=== PATIENT | female | born 1950 | race Caucasian/White ===

== ENCOUNTER → 2021-03-27 10:26 | Outpatient (CLI) | payer MEDICARE, OTHER, SELFPAY ==
[2021-03-27 12:21] LABS: Absolute Lymphocyte Count 2.37 X10^3/uL (0.83-4.51); Absolute Neutrophil Count 4.9 X10^3/uL (2.0-7.7); Basophil# 0.05 X10^3/uL; Basophil% 0.6 % (0-1); Eosinophil# 0.11 X10^3/uL; Eosinophils% 1.4 % (0-5); Hematocrit 38.3 % (37-47); Hemoglobin 11.7 g/dL (12.0-15.0); Lymphocyte # 2.37 X10^3/ul (0.83-4.51); Lymphocyte % 29.2 % (19-41); Mean Corp Hgb Conc 30.5 g/dL (32-36); Mean Corpuscular Hgb 26.5 pg (27.0-32.0); Mean Corpuscular Volume 86.8 fL (81-99); Mean Platelet Vol. 10.5 fl (6.2-12.0); Monocyte# 0.65 X10^3/uL; NRBC Flagged by Analyzer 0 % (0-5); Neutrophil # 4.92 X10^3/uL (2.7-7.7); Neutrophil % 60.6 % (47-70); Platelet Count 326 K/mm3 (150-450); RBC Distribution Width CV 14.3 % (11.6-14.6); RBC Distribution Width SD 45.3 fl (35.1-43.9); Red Blood Count 4.41 M/mm3 (4.2-5.4); White Blood Count 8.1 K/mm3 (4.4-11.0)
[2021-03-27 12:32] LABS: ALB/GLOB Ratio 0.7 RATIO (0.9-2.4); AST(SGOT) 11 U/L (15-37); Alanine Aminotransfer ALT/SGPT 22 U/L (13-56); Albumin, Serum 3.4 g/dL (3.2-5.0); Alkaline Phosphatase 77 U/L (45-117); Anion Gap 8 (5-15); BUN 9 mg/dL (7-18); Calcium,Total 9.7 mg/dL (8.5-10.1); Chloride 104 mmol/L (98-107); Cholesterol 297 mg/dL (200); Creatinine, Serum 0.69 mg/dL (0.55-1.02); EST Glomerular Filtration Rate 89 mL/min (>60); Est Glom Filt Rate - Afr Amer 107 mL/min (>60); Globulin 4.6 g/dL (2.2-4.2); Glucose 95 mg/dL (74-106); High Density Lipoprotein 83 mg/dL; Potassium 4.5 mmol/L (3.5-5.1); Sodium Level 139 mmol/L (136-145); Triglycerides 201 mg/dL; Very Low Density Lipoprotein 40 mg/dL (5-40)
[2021-03-28 09:36] LABS: Ferritin 9 ng/mL (8-252); Iron 31 ug/dL (50-170); Iron Binding Capacity,Total 430 ug/dL (250-450)
== END ==
PROVIDERS: PCP Internal Medicine; Referring Provider Internal Medicine; Visit Provider Internal Medicine
DX: D50.9 Iron deficiency anemia, unspecified (principal); I10 Essential (primary) hypertension
CPT/HCPCS: 36415; 80053; 80061; 82728; 83540; 83550; 85025

== ENCOUNTER 2021-07-24 09:15 | Outpatient (CLI) | payer MEDICARE, OTHER, SELFPAY ==
[2021-07-24 12:21] LABS: Absolute Lymphocyte Count 2.26 X10^3/uL (0.83-4.51); Absolute Neutrophil Count 4.4 X10^3/uL (2.0-7.7); Basophil# 0.05 X10^3/uL; Basophil% 0.7 % (0-1); Eosinophil# 0.17 X10^3/uL; Eosinophils% 2.3 % (0-5); Hematocrit 40.5 % (37-47); Hemoglobin 12.8 g/dL (12.0-15.0); Lymphocyte # 2.26 X10^3/ul (0.83-4.51); Lymphocyte % 30.3 % (19-41); Mean Corp Hgb Conc 31.6 g/dL (32-36); Mean Corpuscular Volume 91.8 fL (81-99); Mean Platelet Vol. 10.6 fl (6.2-12.0); Monocyte# 0.55 X10^3/uL; Monocyte% 7.4 % (0-10); NRBC Flagged by Analyzer 0 % (0-5); Neutrophil # 4.41 X10^3/uL (2.7-7.7); Platelet Count 238 K/mm3 (150-450); RBC Distribution Width CV 14.9 % (11.6-14.6); RBC Distribution Width SD 50.5 fl (35.1-43.9); Red Blood Count 4.41 M/mm3 (4.2-5.4); White Blood Count 7.5 K/mm3 (4.4-11.0)
[2021-07-24 12:43] LABS: Vitamin D,25 Hydroxy 28.7 ng/mL
[2021-07-24 13:00] LABS: ALB/GLOB Ratio 0.9 RATIO (0.9-2.4); AST(SGOT) 9 U/L (15-37); Alanine Aminotransfer ALT/SGPT 31 U/L (13-56); Albumin, Serum 3.5 g/dL (3.2-5.0); Alkaline Phosphatase 65 U/L (45-117); Anion Gap 3 (5-15); BUN 9 mg/dL (7-18); BUN/Creat Ratio 14.2 RATIO (10-20); Chloride 106 mmol/L (98-107); Cholesterol 257 mg/dL (200); Creatinine, Serum 0.63 mg/dL (0.55-1.02); EST Glomerular Filtration Rate 98 mL/min (>60); Est Glom Filt Rate - Afr Amer 119 mL/min (>60); Globulin 3.9 g/dL (2.2-4.2); Glucose 100 mg/dL (74-106); High Density Lipoprotein 59 mg/dL; Potassium 4.3 mmol/L (3.5-5.1); Protein, Total 7.4 g/dL (6.4-8.2); Sodium Level 139 mmol/L (136-145); Triglycerides 185 mg/dL; Very Low Density Lipoprotein 37 mg/dL (5-40)
== END 2021-07-24 23:59 | disposition home or self-care (01) ==
PROVIDERS: PCP Internal Medicine; Referring Provider Internal Medicine; Visit Provider Internal Medicine
DX: I10 Essential (primary) hypertension (principal); E78.2 Mixed hyperlipidemia; M85.80 Other specified disorders of bone density and structure, unspecified site
CPT/HCPCS: 36415; 80053; 80061; 82306; 85025

== ENCOUNTER 2021-08-01 08:48 | Outpatient (CLI) | payer MEDICARE, OTHER, SELFPAY ==
--- NOTE | 2021-08-01 08:51 | BI_ITS ---
MAMMOGRAPHY - BILATERAL SCREENING REASON FOR EXAM: Female, 71 years old. Routine annual screening examination. PERTINENT HISTORY: Aunt with breast cancer. TECHNIQUE: Digital bilateral breast norma (3D mammographic acquisition) in the CC and MLO projections. 2-D mediolateral oblique (MLO) and craniocaudad (CC) views of both breasts were obtained. CAD: Full Field Digital Mammography with Computer Added Detection was performed. COMPARISON: Comparison is made with prior outside examination dated 06/29/2020. FINDINGS: Breast Composition: The breasts are heterogeneously dense, which may obscure small masses. There are no dominant masses or suspicious calcifications. Stable benign-appearing bilateral axillary lymph nodes. No other significant abnormalities are identified. There has been no significant change since the prior study. BI/SCRN MAMM (CAD)W/NORMA BILAT IMPRESSION: Stable bilateral screening mammogram. Yearly follow-up mammogram recommended. (A) ASSESSMENT CATEGORY: BIRADS Category 2: Benign. A letter regarding these results will be sent to the patient by the facility within 30 days. Approximately 10% of breast cancers are not detected by mammography. A normal mammogram should not delay biopsy of a clinically suspicious abnormality. [id number] Electronically Signed: Mkii Mora MD at 15:26 EDT ,
== END 2021-08-01 23:59 | disposition home or self-care (01) ==
PROVIDERS: PCP Internal Medicine; Visit Provider Internal Medicine
DX: Z12.31 Encounter for screening mammogram for malignant neoplasm of breast (principal)
CPT/HCPCS: 77063; 77067

== ENCOUNTER → 2022-03-22 | Outpatient (CLI) | payer MEDICARE, OTHER, SELFPAY ==
[2022-03-22 12:56] LABS: Erythrocyte Sedimentation Rate 51 mm/hr (0-30)
[2022-03-22 13:04] LABS: CRP < 2.90 mg/L (0.0-3.0); Rheumatoid Factor < 10.0 IU/mL (<15)
[2022-03-24 07:51] LABS: ANTINUCLEAR ANTIBODIES DIRECT Negative (Negative)
== END | disposition home or self-care (01) ==
LOC: BIMLAB 09:28
PROVIDERS: PCP Internal Medicine; Visit Provider Internal Medicine
DX: M19.90 Unspecified osteoarthritis, unspecified site (principal); M79.10 Myalgia, unspecified site; T50.B95A Adverse effect of other viral vaccines, initial encounter
CPT/HCPCS: 36415; 85652; 86038; 86140; 86225; 86235; 86431

== ENCOUNTER → 2022-05-28 | Outpatient (CLI) | payer MEDICARE, OTHER, SELFPAY ==
[2022-05-28 12:31] LABS: Erythrocyte Sedimentation Rate 22 mm/hr (0-30)
[2022-05-28 12:32] LABS: Absolute Lymphocyte Count 2.41 X10^3/uL (0.83-4.51); Absolute Neutrophil Count 5.1 X10^3/uL (2.0-7.7); Basophil# 0.04 X10^3/uL; Basophil% 0.5 % (0-1); Eosinophil# 0.21 X10^3/uL; Eosinophils% 2.5 % (0-5); Hematocrit 42.8 % (37-47); Hemoglobin 13.8 g/dL (12.0-15.0); Lymphocyte # 2.41 X10^3/ul (0.83-4.51); Lymphocyte % 28.9 % (19-41); Mean Corp Hgb Conc 32.2 g/dL (32-36); Mean Corpuscular Hgb 29.5 pg (27.0-32.0); Mean Corpuscular Volume 91.5 fL (81-99); Mean Platelet Vol. 10.3 fl (6.2-12.0); Monocyte# 0.55 X10^3/uL; Monocyte% 6.6 % (0-10); NRBC Flagged by Analyzer 0 % (0-5); Neutrophil # 5.11 X10^3/uL (2.7-7.7); Neutrophil % 61.1 % (47-70); Platelet Count 242 K/mm3 (150-450); RBC Distribution Width CV 12.9 % (11.6-14.6); RBC Distribution Width SD 43.5 fl (35.1-43.9); Red Blood Count 4.68 M/mm3 (4.2-5.4); White Blood Count 8.4 K/mm3 (4.4-11.0)
[2022-05-28 13:07] LABS: ALB/GLOB Ratio 0.9 RATIO (0.9-2.4); AST(SGOT) 8 U/L (15-37); Alanine Aminotransfer ALT/SGPT 28 U/L (13-56); Albumin, Serum 3.7 g/dL (3.2-5.0); Alkaline Phosphatase 69 U/L (45-117); Anion Gap 8 (5-15); BUN 13 mg/dL (7-18); BUN/Creat Ratio 20.9 RATIO (10-20); CRP < 2.90 mg/L (0.0-3.0); Chloride 104 mmol/L (98-107); Creatinine, Serum 0.62 mg/dL (0.55-1.02); EST Glomerular Filtration Rate 100 mL/min (>60); Est Glom Filt Rate - Afr Amer 121 mL/min (>60); Globulin 4.2 g/dL (2.2-4.2); Glucose 96 mg/dL (74-106); Hepatitis B Surface Antibody Non-Reactive; Hepatitis B Surface Antigen Non-Reactive (Nonreactive); Potassium 4.3 mmol/L (3.5-5.1); Protein, Total 7.9 g/dL (6.4-8.2); Rheumatoid Factor < 10.0 IU/mL (<15); Sodium Level 139 mmol/L (136-145)
[2022-05-28 15:45] LABS: Hepatitis C Antibody Non-Reactive (Nonreactive)
[2022-05-29 18:11] LABS: CCP IgG Antibodies 1 units (0-19)
== END | disposition home or self-care (01) ==
LOC: MTLAB 10:03
PROVIDERS: PCP Internal Medicine; Referring Provider Internal Medicine Rheumatology; Visit Provider Internal Medicine Rheumatology
DX: M06.4 Inflammatory polyarthropathy (principal); M79.7 Fibromyalgia; M19.041 Primary osteoarthritis, right hand
CPT/HCPCS: 36415; 80053; 85025; 85652; 86140; 86200; 86431; 86706; 86803; 87340

== ENCOUNTER → 2022-06-26 | Outpatient (CLI) | payer MEDICARE, OTHER, SELFPAY ==
[2022-06-26 13:20] LABS: Vitamin D,25 Hydroxy 22.3 ng/mL
[2022-06-26 13:56] LABS: Cholesterol 252 mg/dL (200); High Density Lipoprotein 62 mg/dL; Triglycerides 177 mg/dL; Very Low Density Lipoprotein 35 mg/dL (5-40)
== END | disposition home or self-care (01) ==
LOC: BIMLAB 11:37
PROVIDERS: PCP Internal Medicine; Referring Provider Internal Medicine; Visit Provider Internal Medicine
DX: I10 Essential (primary) hypertension (principal); M81.0 Age-related osteoporosis without current pathological fracture
CPT/HCPCS: 36415; 80061; 82306

== ENCOUNTER → 2022-08-13 | Outpatient (CLI) | payer MEDICARE, OTHER, SELFPAY ==
--- NOTE | 2022-08-13 14:25 | BI_ITS ---
MAMMOGRAPHY - BILATERAL SCREENING 3-D TOMOSYNTHESIS REASON FOR EXAM: Female, 72 years old. Routine screening PERTINENT HISTORY: No significant family history. TECHNIQUE: 2-D mammograms and 3-D Tomosynthesis of the breast (s) were performed. CAD was performed. COMPARISON: 08/01/2021 FINDINGS: The breast composition is composed of scattered fibroglandular density. Scattered benign calcifications are seen. No dense spiculated masses or suspicious microcalcifications are identified. No architectural distortion is identified. There is no skin thickening or retraction. There has been no significant change since the prior study. BI/SCRN MAMM (CAD)W/NORMA BILAT IMPRESSION: No mammographic signs of malignancy. Routine yearly mammograms recommended. ASSESSMENT CATEGORY: BIRADS Category 1: Negative. A letter regarding these results will be sent to the patient by the facility within 30 days. FOLLOW UP RECOMMENDATION: Yearly follow up mammogram recommended. (A) Approximately 10% of breast cancers are not detected by mammography. A normal mammogram should not delay biopsy of a clinically suspicious abnormality. Electronically Signed: Steven Desai MD at 15:21 EDT ,
--- NOTE | 2022-08-13 14:32 | BD_ITS ---
STUDY: DUAL ENERGY X-RAY ABSORPTIOMETRY / DXA REASON FOR EXAM: Female, 72 years old. Osteoporosis TECHNIQUE: Bone Mineral Density (BMD) measurements of lumbar spine and bilateral hips were obtained. COMPARISON: None. FINDINGS: Lumbar Spine (L1-L4): g/cm2 (1.205) / T-score (1.4) / Z-score (3.8) Findings are suggestive of normal bone density with a low fracture risk. Left Femur Total: g/cm2 (0.804) / T-score (-1.1) / Z-score (0.6) Left Femoral Neck: g/cm2 (0.592) / T-score (-2.3) / Z-score (-0.3) Right Femur Total: g/cm2 (0.785) / T-score (-1.3) / Z-score (0.4) Right Femoral Neck: g/cm2 (0.574) / T-score (-2.5) / Z-score (-0.5) BD/Dexa Bone Density Study IMPRESSION: The patient is considered osteopenic as outlined below according to World Magdy Organization (WHO) criteria with a high fracture risk. Reference Information: The T-score is the number of standard deviations above or below the standard which is normal for young adults at their peak bone mineral density. The World Health Organization (WHO) interprets the T-scores as follows: Above -1 Normal bone density Between -1 and -2.5 Osteopenia Equal to / or below -2.5 Osteoporosis As a practical clinical guideline, osteopenia may be graded as follows: Mild -1 through -1.5 Moderate -1.6 through -2.0 Severe -2.1 through -2.4 The Z-score is the number of standard deviations above or below age-matched controls. A Z-score of less than -1.5 would be considered abnormal. References: 1. NIH Osteoporosis and Related Bone Diseases www osteo.org 2. International Society for Clinical Densitometry www iscd.org 3. National Osteoporosis Foundation www nof.org Electronically Signed: Miki Mora MD at 8:52 EDT ,
== END | disposition home or self-care (01) ==
LOC: OPBD 14:23
PROVIDERS: PCP Internal Medicine; Visit Provider Internal Medicine
DX: Z12.31 Encounter for screening mammogram for malignant neoplasm of breast (principal); M81.0 Age-related osteoporosis without current pathological fracture
CPT/HCPCS: 77063; 77067; 77080

== ENCOUNTER → 2022-08-15 | Outpatient (CLI) | payer MEDICARE, OTHER, SELFPAY ==
[2022-08-15 17:48] LABS: Absolute Neutrophil Count 4.6 X10^3/uL (2.0-7.7); Basophil# 0.05 X10^3/uL; Basophil% 0.6 % (0-1); Eosinophil# 0.17 X10^3/uL; Eosinophils% 2.1 % (0-5); Hematocrit 40.7 % (37-47); Mean Corp Hgb Conc 31.9 g/dL (32-36); Mean Corpuscular Hgb 30.3 pg (27.0-32.0); Mean Corpuscular Volume 94.9 fL (81-99); Monocyte# 0.67 X10^3/uL; Monocyte% 8.2 % (0-10); NRBC Flagged by Analyzer 0 % (0-5); Neutrophil # 4.62 X10^3/uL (2.7-7.7); Neutrophil % 56.9 % (47-70); Platelet Count 290 K/mm3 (150-450); RBC Distribution Width CV 14.5 % (11.6-14.6); RBC Distribution Width SD 49.4 fl (35.1-43.9); Red Blood Count 4.29 M/mm3 (4.2-5.4); White Blood Count 8.1 K/mm3 (4.4-11.0)
[2022-08-15 18:14] LABS: ALB/GLOB Ratio 0.9 RATIO (0.9-2.4); AST(SGOT) 6 U/L (15-37); Alanine Aminotransfer ALT/SGPT 29 U/L (13-56); Albumin, Serum 3.5 g/dL (3.2-5.0); Alkaline Phosphatase 63 U/L (45-117); Anion Gap 4 (5-15); BUN 13 mg/dL (7-18); BUN/Creat Ratio 17.1 RATIO (10-20); Calcium,Total 9.2 mg/dL (8.5-10.1); Chloride 107 mmol/L (98-107); Creatinine, Serum 0.76 mg/dL (0.55-1.02); EST Glomerular Filtration Rate 79 mL/min (>60); Est Glom Filt Rate - Afr Amer 96 mL/min (>60); Globulin 3.9 g/dL (2.2-4.2); Glucose 97 mg/dL (74-106); Potassium 4.2 mmol/L (3.5-5.1); Protein, Total 7.4 g/dL (6.4-8.2); Sodium Level 136 mmol/L (136-145)
== END | disposition home or self-care (01) ==
PROVIDERS: PCP Internal Medicine; Referring Provider Internal Medicine Rheumatology; Visit Provider Internal Medicine Rheumatology
DX: M06.4 Inflammatory polyarthropathy (principal); Z79.899 Other long term (current) drug therapy; M79.7 Fibromyalgia
CPT/HCPCS: 36415; 80053; 85025

== ENCOUNTER → 2022-10-15 | Outpatient (CLI) | payer MEDICARE, OTHER, SELFPAY ==
[2022-10-15 15:45] LABS: Absolute Lymphocyte Count 2.76 X10^3/uL (0.83-4.51); Basophil# 0.05 X10^3/uL; Basophil% 0.5 % (0-1); Eosinophil# 0.18 X10^3/uL; Eosinophils% 1.9 % (0-5); Hemoglobin 12.5 g/dL (12.0-15.0); Lymphocyte # 2.76 X10^3/ul (0.83-4.51); Lymphocyte % 28.9 % (19-41); Mean Corp Hgb Conc 31.3 g/dL (32-36); Mean Corpuscular Hgb 29.5 pg (27.0-32.0); Mean Corpuscular Volume 94.3 fL (81-99); Mean Platelet Vol. 10.3 fl (6.2-12.0); Monocyte# 0.53 X10^3/uL; Monocyte% 5.6 % (0-10); NRBC Flagged by Analyzer 0 % (0-5); Neutrophil # 5.99 X10^3/uL (2.7-7.7); Neutrophil % 62.8 % (47-70); Platelet Count 306 K/mm3 (150-450); RBC Distribution Width CV 13.6 % (11.6-14.6); RBC Distribution Width SD 46.2 fl (35.1-43.9); Red Blood Count 4.24 M/mm3 (4.2-5.4); White Blood Count 9.5 K/mm3 (4.4-11.0)
[2022-10-15 16:00] LABS: ALB/GLOB Ratio 0.8 RATIO (0.9-2.4); AST(SGOT) 9 U/L (15-37); Alanine Aminotransfer ALT/SGPT 24 U/L (13-56); Albumin, Serum 3.4 g/dL (3.2-5.0); Alkaline Phosphatase 80 U/L (45-117); Anion Gap 7 (5-15); BUN 11 mg/dL (7-18); BUN/Creat Ratio 15.6 RATIO (10-20); Calcium,Total 9.5 mg/dL (8.5-10.1); Chloride 108 mmol/L (98-107); EST Glomerular Filtration Rate 87 mL/min (>60); Est Glom Filt Rate - Afr Amer 105 mL/min (>60); Globulin 4.1 g/dL (2.2-4.2); Glucose 107 mg/dL (74-106); Potassium 4.2 mmol/L (3.5-5.1); Protein, Total 7.5 g/dL (6.4-8.2); Sodium Level 141 mmol/L (136-145)
== END | disposition home or self-care (01) ==
LOC: MTLAB 13:52
PROVIDERS: PCP Internal Medicine; Referring Provider Internal Medicine Rheumatology; Visit Provider Internal Medicine Rheumatology
DX: M06.4 Inflammatory polyarthropathy (principal); Z79.899 Other long term (current) drug therapy; M79.7 Fibromyalgia
CPT/HCPCS: 36415; 80053; 85025

== ENCOUNTER → 2022-12-17 | Outpatient (CLI) | payer MEDICARE, OTHER, SELFPAY ==
[2022-12-17 12:24] LABS: Absolute Lymphocyte Count 2.69 X10^3/uL (0.83-4.51); Absolute Neutrophil Count 5.3 X10^3/uL (2.0-7.7); Basophil# 0.05 X10^3/uL; Basophil% 0.6 % (0-1); Eosinophil# 0.12 X10^3/uL; Eosinophils% 1.4 % (0-5); Hematocrit 37.9 % (37-47); Hemoglobin 11.5 g/dL (12.0-15.0); Lymphocyte # 2.69 X10^3/ul (0.83-4.51); Lymphocyte % 30.8 % (19-41); Mean Corp Hgb Conc 30.3 g/dL (32-36); Mean Corpuscular Hgb 28.2 pg (27.0-32.0); Mean Corpuscular Volume 92.9 fL (81-99); Mean Platelet Vol. 10.4 fl (6.2-12.0); Monocyte# 0.54 X10^3/uL; Monocyte% 6.2 % (0-10); NRBC Flagged by Analyzer 0 % (0-5); Neutrophil % 60.7 % (47-70); Platelet Count 296 K/mm3 (150-450); RBC Distribution Width CV 15.2 % (11.6-14.6); RBC Distribution Width SD 51.5 fl (35.1-43.9); Red Blood Count 4.08 M/mm3 (4.2-5.4); White Blood Count 8.7 K/mm3 (4.4-11.0)
[2022-12-17 12:50] LABS: ALB/GLOB Ratio 0.8 RATIO (0.9-2.4); AST(SGOT) 7 U/L (15-37); Alanine Aminotransfer ALT/SGPT 22 U/L (13-56); Albumin, Serum 3.4 g/dL (3.2-5.0); Alkaline Phosphatase 71 U/L (45-117); Anion Gap 5 (5-15); BUN 11 mg/dL (7-18); BUN/Creat Ratio 19.4 RATIO (10-20); Calcium,Total 9.9 mg/dL (8.5-10.1); Chloride 105 mmol/L (98-107); Creatinine, Serum 0.57 mg/dL (0.55-1.02); EST Glomerular Filtration Rate 111 mL/min (>60); Est Glom Filt Rate - Afr Amer 134 mL/min (>60); Globulin 4.1 g/dL (2.2-4.2); Glucose 93 mg/dL (74-106); Potassium 4.3 mmol/L (3.5-5.1); Protein, Total 7.5 g/dL (6.4-8.2); Sodium Level 138 mmol/L (136-145)
== END | disposition home or self-care (01) ==
LOC: MTLAB 10:33
PROVIDERS: PCP Internal Medicine; Referring Provider Internal Medicine Rheumatology; Visit Provider Internal Medicine Rheumatology
DX: M06.4 Inflammatory polyarthropathy (principal); Z79.899 Other long term (current) drug therapy; M79.7 Fibromyalgia; M19.041 Primary osteoarthritis, right hand
CPT/HCPCS: 36415; 80053; 85025

== ENCOUNTER → 2023-01-01 | Outpatient (CLI) | payer MEDICARE, OTHER, SELFPAY ==
[2023-01-01 11:22] LABS: Mucous, Urine 0 SEEN /hpf (<or=2+); Red Blood Cells-Urine 0 SEEN /hpf (0-5)
[2023-01-01 12:45] LABS: Color, Urine Yellow (Yellow); Glucose, Dipstick Normal (Normal); Ketone-Dipstick Negative (Negative); Leukocyte Esterase-Dipstick 500 /ul (Negative); Nitrite-Dipstick Negative (Negative); Occult Blood-Urine Negative /ul (Negative); Protein-Dipstick Negative (Negative); Specific Gravity, Urine 1.015 (1.002-1.030); Urine Bilirubin Dipstick Negative (Negative); Urine Clarity Sl. Cloudy (Clear); Urine Urobilinogen Normal (Normal)
[2023-01-01 12:48] LABS: Vitamin D,25 Hydroxy 28.2 ng/mL
[2023-01-01 12:58] LABS: Ferritin 14 ng/mL (8-252); Iron 28 ug/dL (50-170); Iron Binding Capacity,Total 340 ug/dL (250-450)
[2023-01-01 13:02] LABS: Squamous Epithelial Cells - UA 5-10 SEEN /hpf (5-10)
[2023-01-01 13:03] LABS: Bacteria 1+ /hpf (None Seen); Transitional Epithelial - Ur 0-5 SEEN /hpf (0-5); White Blood Cells 10-25 SEEN /hpf (0-5)
== END | disposition home or self-care (01) ==
LOC: BIMLAB 11:20
PROVIDERS: PCP Internal Medicine; Visit Provider Internal Medicine
DX: R82.90 Unspecified abnormal findings in urine (principal); D64.9 Anemia, unspecified; M81.0 Age-related osteoporosis without current pathological fracture; N89.8 Other specified noninflammatory disorders of vagina
CPT/HCPCS: 36415; 81001; 82306; 82728; 83540; 83550; 87086; 87088

== ENCOUNTER → 2023-01-04 | Outpatient (CLI) | payer MEDICARE, OTHER, SELFPAY | END | disposition home or self-care (01) | LOC: LAB 09:04 | PROVIDERS: PCP Internal Medicine; Referring Provider Internal Medicine; Visit Provider Internal Medicine | DX: N39.0 Urinary tract infection, site not specified (principal) | CPT/HCPCS: 87086; 87088 ==

== ENCOUNTER → 2023-03-05 | Outpatient (CLI) | payer MEDICARE, OTHER, SELFPAY | END | disposition home or self-care (01) | LOC: LABSPEC 14:51 | PROVIDERS: PCP Internal Medicine; Referring Provider Obstetrics & Gynecology; Visit Provider Obstetrics & Gynecology | DX: N89.8 Other specified noninflammatory disorders of vagina (principal) | CPT/HCPCS: 87070; 87077; 87205 ==

== ENCOUNTER → 2023-07-07 | Outpatient (CLI) | payer MEDICARE, SELFPAY ==
[2023-07-07 13:02] LABS: Anion Gap 4 (5-15); BUN 15 mg/dL (7-18); BUN/Creat Ratio 20.4 RATIO (10-20); Calcium,Total 9.9 mg/dL (8.5-10.1); Chloride 106 mmol/L (98-107); Cholesterol 288 mg/dL (200); Creatinine, Serum 0.74 mg/dL (0.55-1.02); EST Glomerular Filtration Rate 82 mL/min (>60); Est Glom Filt Rate - Afr Amer 99 mL/min (>60); Glucose 102 mg/dL (74-106); High Density Lipoprotein 56 mg/dL; Potassium 4.3 mmol/L (3.5-5.1); Sodium Level 138 mmol/L (136-145); Triglycerides 228 mg/dL; Very Low Density Lipoprotein 46 mg/dL (5-40)
[2023-07-07 13:07] LABS: Vitamin D,25 Hydroxy 27.3 ng/mL
== END | disposition home or self-care (01) ==
LOC: BIMLAB 09:01
PROVIDERS: PCP Internal Medicine; Visit Provider Internal Medicine
DX: M81.0 Age-related osteoporosis without current pathological fracture (principal); I10 Essential (primary) hypertension
CPT/HCPCS: 36415; 80048; 80061; 82306

== ENCOUNTER → 2023-08-15 | Outpatient (CLI) | payer MEDICARE, SELFPAY ==
--- NOTE | 2023-08-15 08:06 | BI_ITS ---
MAMMOGRAPHY - BILATERAL SCREENING REASON FOR EXAM: Female, 73 years old. Routine annual screening examination. PERTINENT HISTORY: Aunt with breast cancer. TECHNIQUE: Digital bilateral breast norma (3D mammographic acquisition) in the CC and MLO projections. 2-D mediolateral oblique (MLO) and craniocaudad (CC) views of both breasts were obtained. CAD: Full Field Digital Mammography with Computer Added Detection was performed. COMPARISON: Comparison is made with prior study dated August 13, 2022 and August 01, 2021. FINDINGS: Breast Composition: There are scattered areas of fibroglandular density. There are no dominant masses or suspicious calcifications. Stable small bilateral axillary lymph nodes. No other significant abnormalities are identified. There has been no significant change since the prior study. BI/SCRN MAMM (CAD)W/NORMA BILAT IMPRESSION: Stable bilateral screening mammogram. Yearly follow-up mammogram recommended. (A) ASSESSMENT CATEGORY: BIRADS Category 2: Benign. A letter regarding these results will be sent to the patient by the facility within 30 days. Approximately 10% of breast cancers are not detected by mammography. A normal mammogram should not delay biopsy of a clinically suspicious abnormality. [id number] Electronically Signed: Miki Mora MD at 8:37 EDT ,
== END | disposition home or self-care (01) ==
PROVIDERS: PCP Internal Medicine; Referring Provider Internal Medicine; Visit Provider Internal Medicine
DX: Z12.31 Encounter for screening mammogram for malignant neoplasm of breast (principal)
CPT/HCPCS: 77063; 77067

== ENCOUNTER → 2024-01-07 | Outpatient (CLI) | payer MEDICARE, SELFPAY ==
[2024-01-07 12:14] LABS: Absolute Lymphocyte Count 2.31 X10^3/uL (0.83-4.51); Basophil# 0.05 X10^3/uL; Basophil% 0.6 % (0-1); Eosinophil# 0.21 X10^3/uL; Eosinophils% 2.6 % (0-5); Hematocrit 41.4 % (37-47); Lymphocyte # 2.31 X10^3/ul (0.83-4.51); Lymphocyte % 28.2 % (19-41); Mean Corp Hgb Conc 31.4 g/dL (32-36); Mean Corpuscular Volume 92.2 fL (81-99); Mean Platelet Vol. 10.3 fl (6.2-12.0); Monocyte# 0.63 X10^3/uL; Monocyte% 7.7 % (0-10); NRBC Flagged by Analyzer 0 % (0-5); Neutrophil # 4.95 X10^3/uL (2.7-7.7); Neutrophil % 60.5 % (47-70); Platelet Count 265 K/mm3 (150-450); RBC Distribution Width CV 13.6 % (11.6-14.6); RBC Distribution Width SD 46.4 fl (35.1-43.9); Red Blood Count 4.49 M/mm3 (4.2-5.4); White Blood Count 8.2 K/mm3 (4.4-11.0)
[2024-01-07 12:55] LABS: Vitamin D,25 Hydroxy 17.9 ng/mL
[2024-01-07 12:56] LABS: ALB/GLOB Ratio 0.8 RATIO (0.9-2.4); AST(SGOT) 6 U/L (15-37); Alanine Aminotransfer ALT/SGPT 26 U/L (13-56); Albumin, Serum 3.4 g/dL (3.2-5.0); Alkaline Phosphatase 75 U/L (45-117); Anion Gap 3 (5-15); BUN 11 mg/dL (7-18); BUN/Creat Ratio 17.4 RATIO (10-20); Calcium,Total 9.8 mg/dL (8.5-10.1); Chloride 106 mmol/L (98-107); Cholesterol 265 mg/dL (200); Creatinine, Serum 0.63 mg/dL (0.55-1.02); EST Glomerular Filtration Rate 97 mL/min (>60); Est Glom Filt Rate - Afr Amer 118 mL/min (>60); Globulin 4.1 g/dL (2.2-4.2); Glucose 106 mg/dL (74-106); High Density Lipoprotein 63 mg/dL; Potassium 4.8 mmol/L (3.5-5.1); Protein, Total 7.5 g/dL (6.4-8.2); Sodium Level 138 mmol/L (136-145); Triglycerides 159 mg/dL; Very Low Density Lipoprotein 32 mg/dL (5-40)
== END | disposition home or self-care (01) ==
LOC: BIMLAB 09:21
PROVIDERS: PCP Internal Medicine; Visit Provider Internal Medicine
DX: E78.2 Mixed hyperlipidemia (principal); I10 Essential (primary) hypertension; M81.0 Age-related osteoporosis without current pathological fracture
CPT/HCPCS: 36415; 80053; 80061; 82306; 85025

== ENCOUNTER → 2024-02-06 | Outpatient (CLI) | payer SELFPAY ==
--- NOTE | 2024-02-06 07:31 | CT_ITS ---
STUDY: CT CHEST WITHOUT CONTRAST REASON FOR EXAM: Female, 74 years old. Hyperlipidemia, unspecified RADIATION DOSAGE (If Supplied By Facility): CTDIvol = ( 12.19 ) mGy, DLP = ( 219.42 ) mGycm TECHNIQUE: Transaxial imaging was performed without the administration of intravenous contrast material. Cardiac over read examination. Individualized dose optimization techniques were used for this CT. COMPARISON: No relevant priors. FINDINGS: CHEST Increased interstitial markings at the lung bases suggestive of bibasilar scarring. There is no demonstrated pleural abnormality. There are calcifications of the coronary arteries. Normal mediastinum. Normal hilar regions. Normal unenhanced pulmonary arteries. There is atherosclerotic calcification of the aortic arch. Normal osseous structures. Small hiatal hernia. CT/Limited Chest CT Cardiac Only IMPRESSION: Coronary calcification. Mild degree of bibasilar scarring. Electronically Signed: Miki Mora MD at 14:05 EDT ,
--- NOTE | 2024-02-06 08:19 | CA.SCORE ---
Calcium Scoring Date of Study:: 02/06/24 Indications Indications: Family history Coronary Calcium Scoring: High-resolution Computed Tomographic imaging of the chest was performed on [02/06/2024], with particular attention paid to the coronary arteries. Images from the examination were analyzed for the presence and extent of coronary artery calcification , using coronary calcium quantification software. The patient tolerated the procedure well and there were no complications. The results of the coronary calcification analysis are provided below. Findings Coronary Artery Left Main (LM): 0 Left Anterior Descending (LAD): 458 Left Circumflex (LCX): 123 Right Coronary Artery (RCA): 44.7 Total Agatston Score: 625.7 Percentile Rankinth to 90th percentile Calcium Scoring Interpretation: Different methods to categorize the overall amount of coronary plaque. Overall amount CAC SIS Visual of coronary plaque P1 Mild -100 <2 1-2 vessels with mild amount of plaque P2 Moderate 101-300 3-4 1-2 vessels with moderate amount, 3 vessels with mild amount of plaque P3 Severe 301-999 5-7 3 vessels with moderate amount, 1 vessel with severe amount of plaque P4 Extensive >1000 >8 2-3 vessels with severe amount of plaque Calcium Score: Severe: 3 vessels w/moderate amount, 1 vessel w/severe amt of plaque Conclusion: Three-vessel disease with moderate amount of plaque and the LAD with severe amount of plaque.
== END | disposition home or self-care (01) ==
PROVIDERS: PCP Internal Medicine; Referring Provider Internal Medicine; Visit Provider Internal Medicine
DX: E78.5 Hyperlipidemia, unspecified (principal)
CPT/HCPCS: 75571; 76380

== ENCOUNTER → 2024-04-05 | Outpatient (CLI) | payer MEDICARE, SELFPAY ==
[2024-04-05 12:36] LABS: ALB/GLOB Ratio 0.8 RATIO (0.9-2.4); AST(SGOT) 10 U/L (15-37); Alanine Aminotransfer ALT/SGPT 29 U/L (13-56); Albumin, Serum 3.3 g/dL (3.2-5.0); Alkaline Phosphatase 77 U/L (45-117); Anion Gap 5 (5-15); BUN 8 mg/dL (7-18); BUN/Creat Ratio 12.5 RATIO (10-20); Calcium,Total 9.6 mg/dL (8.5-10.1); Chloride 109 mmol/L (98-107); Cholesterol 171 mg/dL (200); Creatinine, Serum 0.64 mg/dL (0.55-1.02); EST Glomerular Filtration Rate 96 mL/min (>60); Est Glom Filt Rate - Afr Amer 116 mL/min (>60); Glucose 104 mg/dL (74-106); High Density Lipoprotein 69 mg/dL; Potassium 4.5 mmol/L (3.5-5.1); Protein, Total 7.3 g/dL (6.4-8.2); Sodium Level 140 mmol/L (136-145); Triglycerides 142 mg/dL; Very Low Density Lipoprotein 28 mg/dL (5-40)
== END | disposition home or self-care (01) ==
PROVIDERS: PCP Internal Medicine; Referring Provider Internal Medicine; Visit Provider Internal Medicine
DX: E78.2 Mixed hyperlipidemia (principal)
CPT/HCPCS: 36415; 80053; 80061

== ENCOUNTER → 2024-04-12 | Outpatient (CLI) | payer MEDICARE, SELFPAY ==
--- NOTE | 2024-04-12 06:06 | ECHOD_ITS ---
Version 2 Reason For Study: HYPERTENSION/ CAD Procedure This was a 2D Doppler, Color Flow transthoracic echocardiogram. Exam performed in department. Left Ventricle Normal LV size. Left ventricular systolic function is normal. The left ventricular ejection fraction is 60 %. Stage 1 diastolic dysfunction. No regional wall motion abnormalities noted. Right Ventricle Normal RV size. Normal systolic function. Atria Normal left atrium. Normal right atrium. Mitral Valve Normal mitral valve. Tricuspid Valve Normal tricuspid valve. Mild (1+) tricuspid valve insufficiency. Pulmonary artery systolic pressure is 28 mmHg. Aortic Valve Trisinus/trileaflet aortic valve. Pulmonic Valve Normal pulmonic valve. Great Vessels Normal aortic root. The pulmonary artery is normal size. Inferior vena cava collapse with respiration. Pericardium/Pleural No pericardial effusion. MMode/2D Measurements & Calculations LVIDd: 4.5 cm IVSd: 1.1 cm LVOT diam: 2.0 cm LVIDs: 2.8 cm LVPWd: 0.97 cm LVOT area: 3.1 cm2 RVDd: 3.0 cm FS: 37.4 % asc Aorta Diam: 3.7 cm LAV(MOD-bp): 43.0 ml LVAd ap4: 21.4 cm2 LAV(MOD-bp) Indexed: 23.5 ml/m2 LVLd ap4: 7.1 cm LAV(MOD-sp2): 37.2 ml EDV(MOD-sp4): 53.2 ml LAV(MOD-sp4): 45.6 ml EDV(sp4-el): 55.2 ml LVAs ap4: 11.8 cm2 LVLs ap4: 5.9 cm ESV(MOD-sp4): 20.1 ml ESV(sp4-el): 20.1 ml EF(MOD-sp4): 62.2 % EF(sp4-el): 63.5 % LVAd ap2: 17.7 cm2 SV(MOD-sp4): 33.1 ml SV(MOD-sp2): 24.5 ml LVLd ap2: 6.7 cm SI(MOD-sp4): 18.1 ml/m2 SI(MOD-sp2): 13.4 ml/m2 EDV(MOD-sp2): 38.2 ml EDV(sp2-el): 39.6 ml LVAs ap2: 9.6 cm2 LVLs ap2: 5.6 cm ESV(MOD-sp2): 13.7 ml ESV(sp2-el): 13.9 ml EF(MOD-sp2): 64.3 % SV(sp4-el): 35.0 ml Ao sinus diam: 3.[address] Junction: 3.0 cm LA dimension(2D): 4.3 cm LA A4 area: 17.1 cm2 RA A4 area: 14.8 cm2 TAPSE: 1.7 cm Time Measurements MV dec time: 0.19 sec Doppler Measurements & Calculations MV E max abiodun: 59.9 cm/sec Lat Peak E' Abiodun: 8.1 cm/sec Med Peak E' Abiodun: 5.6 cm/sec MV A max abiodun: 101.1 cm/sec E/E' lat: 7.4 E/E' med: 10.6 MV E/A: 0.59 MV dec slope: 312.3 cm/sec2 Ao V2 max: 130.6 cm/sec LV V1 max: 84.7 cm/sec Ao max P.8 mmHg LV V1 max P.9 mmHg Ao V2 mean: 95.7 cm/sec LV V1 mean P.9 mmHg Ao mean P.9 mmHg LV V1 mean: 66.5 cm/sec Ao V2 VTI: 27.9 cm LV V1 VTI: 20.3 cm AV (velocity ratio): 0.73 MINGO(I,D): 2.3 cm2 MINGO(V,D): 2.0 cm2 SV(LVOT): 63.7 ml PA V2 max: 70.9 cm/sec TR max abiodun: 244.6 cm/sec TR max P.9 mmHg ECHO/Echo Complete Interpretation Summary Normal LV size. Left ventricular systolic function is normal. The left ventricular ejection fraction is 60 %. Stage 1 diastolic dysfunction. Structurally normal valves. Ordering Physician: Evert Davenport Referring Physician: Anna Hightower Performed By: Mariama Chavez RDCS
--- NOTE | 2024-04-12 16:24 | STRESSREP ---
Stress Test Report Exercise myocardial perfusion stress test. 74-year-old with a history of coronary disease and elevated calcium score Stress protocol: Resting EKG demonstrates normal sinus rhythm with a rate of 64 bpm resting blood pressure is 122/80 mmHg. The patient exercised according to the regular [place] protocol for a total duration of 3 minutes and 45 seconds attaining a maximum heart rate of 134 bpm which was 92% of maximum predicted heart rate; the maximum workload was 6.4 metabolic equivalents. At rest there were no ST or T wave changes noted to suggest ischemia and at peak exercise upsloping ST changes only were noted which did not meet the criteria for ischemia. No clinical angina was noted the test was terminated due to the target heart rate being achieved/fatigue. The peak blood pressure was 158/88 mmHg. Rate-pressure product was 17,300. Myocardial perfusion protocol. 11.7 mCi of technetium 99m sestamibi was injected at rest. The patient exercised according to regular [place] protocol for total duration of 3 minutes and 45 seconds and at peak exercise 34.1 mCi of technetium 99m sestamibi was injected stress images were obtained stress and rest images were reconstructed in comparing the short axis vertical long and horizontal long axis. Gated images were also obtained. Perfusion SPECT analysis: Review of the stress images demonstrate normal uptake of tracer noted in all areas of the myocardium. The resting images similarly demonstrate normal uptake of tracer noted in all areas of the myocardium. No areas of reversibility are noted to suggest ischemia no previous infarct was noted. Gated SPECT analysis: The gated ejection fraction is 81%. Conclusion: Normal exercise myocardial perfusion stress test at a moderate workload Preserved ejection fraction.
== END | disposition home or self-care (01) ==
LOC: CVS 06:05
PROVIDERS: PCP Internal Medicine; Referring Provider Internal Medicine Cardiovascular Disease; Visit Provider Internal Medicine Cardiovascular Disease
DX: I10 Essential (primary) hypertension (principal); I25.10 Atherosclerotic heart disease of native coronary artery without angina pectoris
CPT/HCPCS: 78452; 93017; 93306; A9500; A4216

== ENCOUNTER → 2024-08-13 | Outpatient (CLI) | payer MEDICARE, SELFPAY ==
[2024-08-13 16:16] LABS: Anion Gap 13 (5-15); BUN 14 mg/dL (4-19); BUN/Creat Ratio 19.2 RATIO (10-20); Calcium,Total 11.3 mg/dL (7.6-11.0); Carbon Dioxide 25.4 mmol/L (21.0-32.0); Chloride 102 mmol/L (98-108); Creatinine, Serum 0.71 mg/dL (0.70-1.20); EST Glomerular Filtration Rate 89 (>60); Glucose 93 mg/dL (70-99); Potassium 5.1 mmol/L (3.3-5.1); Sodium Level 140 mmol/L (133-145)
[2024-08-13 16:22] LABS: Vitamin D,25 Hydroxy 36.4 ng/mL (30-100)
== END | disposition home or self-care (01) ==
LOC: BIMLAB 11:52
PROVIDERS: PCP Internal Medicine; Referring Provider Internal Medicine; Visit Provider Internal Medicine
DX: M81.0 Age-related osteoporosis without current pathological fracture (principal); I10 Essential (primary) hypertension
CPT/HCPCS: 36415; 80048; 82306

== ENCOUNTER → 2024-08-26 | Outpatient (CLI) | payer MEDICARE, SELFPAY ==
--- NOTE | 2024-08-26 14:53 | BI_ITS ---
EXAM: SCRN MAMM (CAD)W/NORMA BILAT DATE: 08/26/2024 CLINICAL HISTORY: F, Age 74 y/o , BREAST CANCER SCREENING Aunt with breast cancer. BREAST CANCER RISK ASSESSMENT: Not assessed. TECHNIQUE: Bilateral screening digital breast tomosynthesis with 2D and 3D images. Computer aided detection. COMPARISON: Prior exam(s) dated August 15, 2023.. FINDINGS: TISSUE DENSITY: The breast tissue is heterogenously dense, which may obscure small masses. Bilateral Breast Mammographic Findings: No significant masses, calcifications or other abnormalities are identified. No suspicious masses, areas of developing architectural distortion, or suspicious calcifications. There has been no significant interval change. BI/SCRN MAMM (CAD)W/NORMA BILAT IMPRESSION: OVERALL FINAL ASSESSMENT: BIRADS 1 NEGATIVE RECOMMENDATION: Routine annual follow-up in 1 Year A letter with findings and recommendations will be mailed to the patient. Reading Location: [place] [id number]
--- NOTE | 2024-08-26 14:53 | BD_ITS ---
PROCEDURE: DEXA BONE DENSITY STUDY 08/26/2024 REASON FOR EXAM: POST MENOPAUSAL F, age 74 y/o . Postmenopausal. TECHNIQUE: DXA scan of sites with data reported below. [facility] LINKS[facility] COMPARISON: Comparison is made with prior study dated August 13, 2022. FINDINGS: BMD and T-SCORES Lumbar spine: 1.174 g/cm2, T-score 1.2 Levels: L1 through L4 Change from prior: Loss of 2.6%. Left femoral neck: 0.549 g/cm2, T-score -2.7 Femoral neck comparison data not recommended for monitoring change. Left total hip: 0.800 g/cm2, T-score -1.2 Change from prior: Loss of 0.5%. Right femoral neck: 0.563 g/cm2, T-score -2.6 Femoral neck comparison data not recommended for monitoring change. Right total hip: 0.802 g/cm2, T-score -1.1 Change from prior: Improvement by 2.1%. The World Health Organization has defined the following categories based on bone density: Normal bone density: T-score equal to or greater than -1.0 Osteopenia: T-score between -1.0 and -2.5 Osteoporosis: T-score equal to or less than -2.5 FRAX (or Comparable) Fracture Risk Assessment: (Note: FRAX is not to be reported in setting of normal range bone density, osteoporosis on DEXA, known history of osteoporosis, prior osteoporotic hip or vertebral fracture, or for any patient undergoing pharmacological treatment for bone loss.) The National Osteoporosis Foundation (NOF) recommends pharmacological treatment for patients with a FRAX 10-year risk of 3% or higher for a hip fracture, or 20% or higher for a major osteoporotic fracture, to prevent osteoporosis and reduce fracture risk. The patient does meet the pharmacological treatment recommendations for prevention of osteoporosis. BD/Dexa Bone Density Study IMPRESSION: OSTEOPOROSIS. Recommend follow-up as clinically warranted. Reading Location: [place] [id number]
== END | disposition home or self-care (01) ==
LOC: OPBD 14:52
PROVIDERS: PCP Internal Medicine; Referring Provider Internal Medicine; Visit Provider Internal Medicine
DX: Z12.31 Encounter for screening mammogram for malignant neoplasm of breast (principal); Z80.3 Family history of malignant neoplasm of breast; M81.0 Age-related osteoporosis without current pathological fracture; Z78.0 Asymptomatic menopausal state
CPT/HCPCS: 77063; 77067; 77080

== ENCOUNTER 2024-12-02 06:44 | Day surgery (SDC) | payer MEDICARE, SELFPAY ==
--- NOTE | 2024-11-30 16:02 | PAT.ANESEVAL ---
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 When Was Last Pacemaker Check QUESTION #4 FULL TEXT: You/Your Family Experience fever (hyperthermia) with Anesthesia Last Oral Intake Last Oral intake: Last Oral Intake NPO since Meds taken in AM with sips of water? Meds patient instructed to take am of surgery PONV PONV - childhood development teacher: PONV - childhood development teacher Female Yes 11/30/24 13:08 HX of Motion Sickness Yes 11/30/24 13:08 HX of N/V After Surgery No 11/30/24 13:08 Non-Smoker Yes 11/30/24 13:08 Duration of Surgery greater No 11/30/24 13:08 than 60 minutes Number of Risk Factors 3 11/30/24 13:08 PONV Score Moderate Risk 11/30/24 13:08 Height & Weight Height & Weight: Anesthesia: Height & Weight Height 5 ft 3 in 08/13/24 11:05 Respiratory Assessment Respiratory Assessment - childhood development teacher: Respiratory Tract Infection Hx - childhood development teacher Hx Respiratory Tract Infection No 11/30/24 13:08 STOP Sleep Apnea STOP Sleep Apnea - childhood development teacher: STOP Sleep Apnea - childhood development teacher Hx Hypertension Yes: CONTROLLED ON MED 11/30/24 13:08 Hx Sleep Apnea No 11/30/24 13:08 CPAP BIPAP Do you snore loudly (louder No 11/30/24 13:08 than talking or can be heard Do you often feel tired/ No 11/30/24 13:08 fatigued/ sleepy during daytime? Has anyone observed you stop No 11/30/24 13:08 breathing during sleep? STOP Results Negative 11/30/24 13:08 QUESTION #5 FULL TEXT : Do you snore loudly (louder than talking or can be heard through closed doors)? Tobacco Use History Tobacco Use History - childhood development teacher: Tobacco Use History - childhood development teacher Tobacco Use Smoking Status Never smoker 11/30/24 13:08 Hx Tobacco Use No 11/30/24 13:08 Years Smoking Packs Smoked per Day Smoking Cessation Date was within the last 15 years Hx Smoking Cessation Date Hx Smoking Cessation Counseling Hematologic Medial History Hematologic Hx - childhood development teacher: Hematologic Medical Hx - puncher and fastener Hx of Blood Transfusion No 11/30/24 13:08 Hx of Transfusion in last 3 No 11/30/24 13:08 Months Date of Last Transfusion (if within last 3 months) Ever experience any problems No 11/30/24 13:08 with transfusion(s)? Specify any problems Hx of Preganancy in last 3 No 11/30/24 13:08 Months Nurse Filling Out Transfusion VCHRISTIN 11/30/24 13:08 & Questions: Date: 11/30/24 11/30/24 13:08 Time: 13:09 11/30/24 13:08 Patient unable to answer at this time (ie. confused, unrespo /Reproduction History /Reproductive History - childhood development teacher: /Reproductive Hx- childhood development teacher Hx Now No 11/30/24 13:08 Gestational Age (in weeks): EDC: Hx Hx Para Hx Section SAB No 11/30/24 13:08 [facility] Medical History (Updated 11/30/24 @ 13:08 by Elly Bonner) Wears hearing aid High cholesterol Back pain History of hiatal hernia Gastric reflux Leg cramps History of pain when walking History of echocardiogram History of stress test Cardiology follow-up encounter Health care maintenance Atherosclerosis of coronary artery without angina pectoris CAD (coronary artery disease) Anemia Post-menopausal Vaginal odor PMR (polymyalgia rheumatica) Trigger finger of right hand Myalgia Arthritis Osteoarthritis Chronic pain Cough Callus of foot Generalized anxiety disorder Hyperlipidemia GERD (gastroesophageal reflux disease) Osteoporosis Hearing difficulty of both ears Generalized osteoarthrosis, unspecified site Macular degeneration Fibromyalgia Pure hypertriglyceridemia Essential hypertension Home Medications ?Medication ?Instructions ?Recorded ?Last Taken ?Type aspirin 81 mg tablet,delayed 81 mg PO DAILY 03/27/21 Unknown History release (Adult Low Dose Aspirin) calcium citrate 800 mg PO BID 03/27/21 Unknown History cholecalciferol (vitamin D3) 10 20 mcg PO BID 03/27/21 Unknown History mcg (400 unit) tablet cyanocobalamin (vitamin B-12) 1,500 mcg PO DAILY 03/27/21 Unknown History 1,000 mcg capsule duloxetine 60 mg capsule,delayed 60 mg PO BID #180 caps 07/26/24 Unknown Rx release alendronate 70 mg tablet (Fosamax) 70 mg PO QWEEK #20 tabs 08/13/24 Unknown Rx omeprazole 20 mg capsule,delayed 20 mg PO QDAY #90 caps 10/11/24 Unknown Rx release atorvastatin 20 mg tablet 20 mg PO QODAY 11/30/24 Unknown History ezetimibe 10 mg tablet 10 mg PO QODAY 11/30/24 Unknown History metoprolol succinate 50 mg 50 mg PO QHS 11/30/24 Unknown History tablet,extended release 24 hr vit C 250 mg-vit E 90 mg-zinc 40 1 tab PO BID 11/30/24 Unknown History mg-copper 1 [id number] capsule ([facility] AREDS-2) Allergy/AdvReac Type Severity Reaction Status Date / Time rosuvastatin Allergy Mild muscle ache Verified 11/30/24 12:55 simvastatin Allergy Mild muscle ache Verified 11/30/24 12:55 Family History Other Myocardial infarction Surgical History (Updated 11/30/24 @ 13:08 by Elly Bonner) History of Uday fundoplication Hx of laminectomy Hx of hysterectomy History of surgery on left wrist H/O cataract removal with insertion of prosthetic lens H/O right wrist surgery S/P appendectomy Social History Smoking Status: Never smoker alcohol intake: current alcohol intake frequency: holidays/special occasions only substance use type: does not use caffeine: Yes what type of physical activity do you participate in: none seatbelt use: always do you feel safe at home: Yes additional social history: Audit: Pertinent Findings Pertinent Findings EKG Perinent findings: 03/17/2024. Sinus rhythm. Low voltage in the precordial leads. Poor R wave progression may be secondary to pulmonary disease consider old anterior infarct. Nonspecific T wave abnormality Stress test pertinent findings: April 12, 2024. EF of 81%. No ischemia. No previous infarct. Echo (EF%) pertinent findings: April 12, 2024. EF of 60%. PASP is 28 mmHg. No aortic stenosis is noted. Consult pertinent findings: March 17, 2024. Dr. Davenport. 1. Atherosclerosis of coronary artery without angina?acute-patient does have elevated coronary calcium score suggesting atherosclerosis but without any evidence of angina. Patient should have a stress test to look for occlusive disease. (See above) 2. Essential hypertension?chronic-patient is under good control. Continue beta-prisca. Check an echo to look for wall thickness. (See above) Recommendation Anesthesia Recommendation Anesthesia recommendation: OPTIMIZED for anesthesia
--- OUTSIDE RECORDS SUMMARY | 2024-12-02 06:46 | XMS RPT_ITS | CCD ---
Author Organization [facility] Informat ion Partnership [facility] Care Team Providers Care Bung Sewer Name Role Phone Lazaro [phone], Roc [phone] Co nsulting Shawna CAO MD, DR ALBRIGHT Primary Care Johnny Meng MD, DR ALBRIGHT Admitting Johnny Meng MD, DR ALBRIGHT Attending Johnny Meng MD, DR ALBRIGHT Consulting Johnny Meng MD, DR ALBRIGHT Consulting Johnny Meng MD, DR ALBRIGHT Admitting Johnny Meng MD, DR ALBRIGHT Attending Johnny Meng MD, DR ALBRIGHT Primary Care Johnny Meng MD, DR ALBRIGHT Primary Care Johnny Meng MD, DR ALBRIGHT Admitting Johnny Meng MD, DR ALBRIGHT Attending Johnny Meng MD, DR ALBRIGHT Consulting Johnny Meng MD, DR ALBRIGHT Attending Johnny Meng MD, DR ALBRIGHT Primary Care Johnny Meng MD, DR ALBRIGHT Admitting Johnny Meng MD, DR ALBRIGHT Consulting Johnny Dee MD, DR NIEVES Attending Shawna GREEN MD, DR NIEVES Admitting Unavailable NASH TURK, DR ALBRIGHT Primary Care Unavailab Taqueria TURK, DR ALBRIGHT Consulting Johnny Dee MD, DR NIEVES Attending Shawna GREEN MD, DR NIEVES Admitting Shawna CAO MD, DR ALBRIGHT Primary Care Johnny Meng MD, DR ALBRIGHT Consulting Johnny Houser [phone], Akanksha [phone] Cons uldo CAO MD, DR ALBRIGHT Primary Care Johnny Meng MD, DR ALBRIGHT Admitting Johnny Meng MD, DR ALBRIGHT Attending Johnny Meng MD, DR ALBRIGHT Consulting Johnny Casillas, Dr. Castillo Primary Care Provider Oleghe, Dr. Castillo Attending Provider 1(330)2 Olemeree, Dr. Castillo Referring Provider 1(330)2 Oleghe, Dr. Castillo Primary Care Provider [phone] Oleghe, Dr. Castillo Attending Provider 1(330)2 Oleghe, Dr. Castillo Referring Provider 1(330)2 Oleghe, Dr. Castillo Primary Care Provider [phone] Oleghe, Dr. Castillo Attending Provider 1(330)2 Oleghe, Dr. Castillo Referring Provider 1(330)2 Oleghe, Dr. Castillo Primary Care Provider 1(33 0) Oleghe, Dr. Castillo Attending Provider 1(330)2 Oleghe, Dr. Castillo Referring Provider 1(330)2 Oleghe, Dr. Castillo Primary Care Provider 1(33 0) Oleghe, Dr. Castillo Attending Provider 1(330)2 Oleghe, Dr. Castillo Referring Provider 1(330)2 Oleghe, Dr. Castillo Primary Care Provider 1(33 0) Oleghe, Dr. Castillo Attending Provider 1(330)2 Oleghe, Dr. Castillo Referring Provider 1(330)2 Dr. Odalis Klein Attending Provider 1(3 30) Olekilo, Dr. Castillo Primary Care Provider 1(33 0) Olemeree, Dr. Castillo Attending Provider 1(330)2 Oleghe, Dr. Castillo Referring Provider 1(330)2 Olekilo, Dr. Castillo Primary Care Provider 1(33 0) Oleghe, Dr. Castillo Attending Provider 1(330)2 Oleghe, Dr. Castillo Referring Provider 1(330)2 Katja TURK, Dr. Castillo Primary Care Provider Katja TURK, Dr. Castillo Attending Provider 1(33 0) Katja TURK, Dr. Castillo Referring Provider [phone] Naz Hernandez Attending Provider Oleghe, Efewongbe Attending Unavailable Oleghe, Efewongbe Primary Care Unavailable Oleghe, Efewongbe Referring Unavailable Oleghe, Efewongbe Attending Unavailable Oleghe, Efewongbe Primary Care Unavailable Oleghe, Efewongbe Referring Unavailable Mg Kennedy Attending Unavailable Oleghe, Efewongbe Primary Care Unavailable Oleghe, Efewongbe Referring Unavailable Oleghe, Efewongbe Attending Unavailable Oleghe, Efewongbe Primary Care Unavailable Oleghe, Efewongbe Referring Unavailable Oleghe, Efewongbe Primary Care Unavailable Oleghe, Efewongbe Referring Unavailable Ethel, Evert Attending Unavailable Oleghe, Efewongbe Attending Unavailable Oleghe, Efewongbe Referring Unavailable Oleghe, Efewongbe Primary Care Unavailable Oleghe, Efewongbe Primary Care Unavailable Ethel, [place] Attending Unavailable Oleghe, Efewongbe Consulting Unavailable Oleghe, Efewongbe Primary Care Unavailable Oleghe, Efewongbe Referring Unavailable Ethel, Evert Attending Unavailable Oleghe, Efewongbe Attending Unavailable Oleghe, Efewongbe Referring Unavailable Oleghe, Efewongbe Primary Care Unavailable Naz Sweeney Attending Unavailable Oleghe, Efewongbe Primary Care Unavailable Oleghe, Efewongbe Referring Unavailable Oleghe, Efewongbe Primary Care Unavailable Oleghe, Efew[place]be Referring Unavailable Oleghe, Efewongbe Attending Unavailable Oleghe, Efewongbe Primary Care Unavailable Oleghe, E[place] Attending Unavailable Oleghe, Efewongbe Primary Care Unavailable Ethel, [place] Referring Unavailable Ethel, [place] Attending Unavailable Oleghe, Efewongbe Attending Unavailable Oleghe, Efewongbe Referring Unavailable Oleghe, Efewongbe Primary Care Unavailable Allergies Allergy Classification Reported Allergen(s) Allergy Type Date of Onset Reaction(s) Facility (14 sources) rosuvastatin Drug Allergy 07-24-2021 muscle ache [facility] (14 sources) Simvastatin Drug Allergy 07-24-2021 muscle ache [facility] (1 source) rosuvastatin Drug Allergy 11-30-2024 [facility] (1 source) Simvastatin Drug Allergy 11-30-2024 [facility] Medications Current Medications Medication Drug Class(es) Dates Sig (Normalized) Sig (Original) aspirin 81 mg delayed release oral tablet (14 sources) Platelet Aggregation Inhibitor, Nonsteroidal Anti-inflammatory Drug Start: 03-27-2021 Aspirin (Adult Low Dose Aspirin) 81 mg tablet,delayed release (DR/EC) Active 81 mg PO DAILY March 27, 2021 1:00am calcium citrate 950 mg oral tablet (14 sources) Start: 03-27-2021 take 1 tablet by mouth twice daily Calcium Citrate 200 mg (950 mg) tablet Active 800 mg PO TWICE A DAY March 27, 2021 1:00am cholecalciferol 0.01 mg oral tablet (14 sources) Vitamin D Start: 03-27-2021 take 1 tablet by mouth twice daily Cholecalciferol (Vitamin D3) 10 mcg (400 unit) tablet Active 20 ug PO TWICE A DAY March 27, 2021 1:00am ferrous sulfate 325 mg oral tablet (14 sources) Start: 03-28-2021 take 1 tablet by mouth every other day Ferrous Sulfate 325 mg (65 mg iron) tablet Active 325 mg PO every other day March 28, 2021 1:00am 24 hr metoprolol succinate 50 mg extended release oral tablet (20 sources) beta-Adrenergic Ayanna Start: 03-27-2021 End: 10-07-2024 take 1 tablet by mouth once daily Metoprolol Succinate 50 mg tablet extended release 24 hr Active 50 mg PO DAILY October 07, 2024 1:50pm omeprazole 20 mg delayed release oral capsule (1 source) Proton Pump Inhibitor Start: 10-11-2024 take 1 capsule by mouth once daily Omeprazole 20 mg capsule,delayed release(DR/EC) Active 20 mg PO daily October 11, 2024 12:00am vitamin b12 1 mg oral capsule (14 sources) Vitamin B12 Start: 03-27-2021 Cyanocobalamin (Vitamin B-12) 1,000 mcg capsule Active 1500 ug PO DAILY March 27, 2021 1:00am Start: 03-27-2021 take 1500 ug by mout h once daily Cyanocobalamin (Vitamin B-12) Active 1500 MCG PO DAILY March 27, 2021 1:00am Completed/Discontinued Medications Medication Drug Class(es) Dates Sig (Normalized) Sig (Original) alendronic acid 70 mg oral tablet (20 sources) Bisphosphonate Start: 03-27-2021 End: 08-13-2024 take 1 tablet by mouth every week Alendronate (Fosamax) 70 mg tablet Discontinued 70 mg PO EVERY WEEK November 27, 2023 7:40am August 13, 2024 11:47am amoxicillin 500 mg / clavulanate 125 mg oral tablet (6 sources) Penicillin-class Antibacterial Start: 03-10-2023 End: 07-07-2023 Amoxicillin-Pot Clavulanate (Augmentin) 500-125 mg tablet Discontinued 1 {tbl} PO TWICE A DAY March 10, 2023 1:00am July 07, 2023 9:16am atorvastatin 20 mg oral tablet (5 sources) HMG-CoA Reductase Inhibitor Start: 01-07-2024 End: 10-11-2024 take 1 tablet by mouth three times weekly Atorvastatin 20 mg tablet Discontinued 20 mg PO 3 TIMES A WEEK August 30, 2024 4:22pm October 11, 2024 9:30am diazePAM 5 mg oral tablet (14 sources) Benzodiazepine Start: 03-27-2021 End: 01-07-2024 take 1 tablet by mouth at bedtime as needed for anxiety Diazepam 5 mg tablet Discontinued 5 mg PO AT BEDTIME as needed for anxiety March 27, 2021 1:00am January 07, 2024 8:31am DULoxetine 60 mg delayed release oral capsule (20 sources) Serotonin and Norepinephrine Reuptake Inhibitor Start: 01-01-2023 End: 07-26-2024 take 1 capsule by mouth twice daily Duloxetine 60 mg capsule,delayed release(DR/EC) Discontinued 60 mg PO TWICE A DAY February 19, 2024 5:08pm July 26, 2024 4:35pm Start: 12-17-2021 End: 01-01-2023 Duloxetine 30 mg capsule,del ayed release(DR/EC) Discontinued 30 mg PO TWICE A DAY 60 October 14, 2022 1:48pm January 01, 2023 10:33am Take 30 mg QHS x 1 week then increase to BID ezetimibe 10 mg oral tablet (20 sources) Dietary Cholesterol Absorption Inhibitor Start: 03-27-2021 End: 08-13-2024 take 1 tablet by mouth once daily Ezetimibe 10 mg tablet Discontinued 10 mg PO DAILY 90 April 02, 2023 6:07pm July 07, 2023 9:54am Opbq-Lflzml-N36-C -Biotin-Zinc (Maxfe (Folate)) 160 mg-1,700 mcg DFE-60 mcg tablet (11 sources) Start: 06-26-2022 End: 03-17-2024 Zior-Dmxafw-A90-C-B iotin-Zinc (Maxfe (Folate)) 160 mg-1,700 mcg DFE-60 mcg tablet Discontinued {tbl} PO June 26, 2022 1:00am March 17, 2024 4:24pm Start: 06-26-2022 Wkyg-Rtmqzq-R3 1-R-Udvtnn-Zinc (Maxfe (Folate)) 160 mg-1,700 mcg DFE-60 mcg tablet Active TABLET PO June 26, 2022 1:00am Start: 06-26-2022 Orpc-Dujxva-O9 8-D-Wtkxkq-Zinc (Maxfe (Folate)) 160 mg-1,700 mcg DFE-60 mcg tablet Active TABLET PO June 26, 2022 12:00am methotrexate 2.5 mg oral tablet (19 sources) Folate Analog Metabolic Inhibitor Start: 01-01-2023 End: 07-07-2023 Methotrexate Sodium 2.5 mg tablet Discontinued mg PO January 01, 2023 12:00am July 07, 2023 9:18am Start: 01-01-2023 End: 07-07-2023 Methotrexate Sodium Disconti nued MG PO January 01, 2023 12:00am July 07, 2023 9:18am Start: 06-26-2022 End: 01-01-2023 Methotrexate 2.5 mg/mL solut ion Discontinued PO June 26, 2022 1:00am January 01, 2023 10:32am Start: 06-26-2022 End: 01-01-2023 Methotrexate Discontinued PO June 26, 2022 1:00am January 01, 2023 10:32am predniSONE 20 mg oral tablet (13 sources) Start: 03-25-2022 End: 07-07-2023 take 1 tablet by mouth once daily Prednisone 20 mg tablet Discontinued 20 mg PO DAILY March 25, 2022 1:00am July 07, 2023 9:16am Problems Active Problems Problem Classification Problem Date Documented Date Episodic/Chronic Anxiety disorders (18 sources) Generalized anxiety disorder; Translations: [Generalized anxiety disorder] Chronic Coronary atherosclerosis and other heart disease (7 sources) Coronary arteriosclerosis; Translations: [Atherosclerotic heart disease of [place] coronary artery without angina pectoris] Onset: 03-17-2024 02-12-2024 Chronic Deficiency and other anemia (8 sources) Anemia; Translations: [Anemia, unspecified] 01-01-2023 Episodic Deficiency and other anemia (3 sources) Anemia, unspecified; Translations: [Anemia, unspecified] 01-01-2023 Episodic Disorders of lipid metabolism (20 sources) Mixed hyperlipidemia; Translations: [Hyperlipidemia, unspecified] Onset: 12-20-2020 Chronic Esophageal disorders (20 sources) Gastroesophageal reflux disease; Translations: [Gastro-esophageal reflux disease without esophagitis] Onset: 08-13-2024 Chronic Esophageal disorders (3 sources) Esophageal disorders Essential hypertension (20 sources) Essential (primary) hypertension; Translations: [Essential hypertension] Onset: 06-30-2020 Chronic Genitourinary symptoms and ill-defined conditions (5 sources) Abnormal urinalysis; Translations: [Unspecified abnormal findings in urine] 01-01-2023 Episodic Osteoarthritis (20 sources) Degenerative joint disease involving multiple joints; Translations: [Polyosteoarthritis, unspecified] Chronic Osteoporosis (20 sources) Osteoporosis; Translations: [Age-related osteoporosis without current pathological fracture] Onset: 08-19-2024 Chronic Other bone disease and musculoskeletal deformities (14 sources) Osteopenia; Translations: [Other specified disorders of bone density and structure, unspecified site] 03-27-2021 Episodic Other connective tissue disease (13 sources) Polymyalgia rheumatica; Translations: [Polymyalgia rheumatica] 03-25-2022 Chronic Other connective tissue disease (14 sources) Fibromyalgia; Translations: [Fibromyalgia] 03-27-2021 Episodic Other connective tissue disease (20 sources) Muscle pain; Translations: [Myalgia, unspecified site] 03-22-2022 Episodic Other connective tissue disease (13 sources) Triggering of digit; Translations: [Trigger finger, unspecified finger] 03-22-2022 Episodic Other connective tissue disease (1 source) Fibromyalgia; Translations: [Myalgia and myositis, unspecified] Episodic Other connective tissue disease (6 sources) Myalgia, unspecified site; Translations: [Myalgia and myositis, unspecified] Episodic Other connective tissue disease (3 sources) Trigger finger, unspecified finger; Translations: [Trigger finger (acquired)] Episodic Other ear and sense organ disorders (14 sources) Hearing difficulty; Translations: [Unspecified hearing loss, bilateral] 03-27-2021 Chronic Other female genital disorders (8 sources) Vaginal odor; Translations: [Other specified noninflammatory disorders of vagina] 01-01-2023 Episodic Other female genital disorders (4 sources) Other specified noninflammatory disorders of vagina; Translations: [Other specified symptoms associated with female genital organs] 01-01-2023 Episodic Other lower respiratory disease (14 sources) Cough; Translations: [Cough] Episodic Other nervous system disorders (13 sources) Chronic pain; Translations: [Other chronic pain] 12-17-2021 Chronic Other nervous system disorders (1 source) Other chronic pain; Translations: [Other chronic pain] Chronic Other skin disorders (13 sources) Foot callus; Translations: [Corns and callosities] 10-03-2021 Episodic Residual codes; unclassified (8 sources) Postmenopausal state; Translations: [Asymptomatic menopausal state] 01-01-2023 Episodic Retinal detachments; defects; vascular occlusion; and retinopathy (15 sources) Degenerative disorder of macula ; Translations: [Unspecified macular degeneration] Chronic Past or Other Problems Problem Classification Problem Date Documented Da te Episodic/Chronic Immunizations and screening for infectious disease (2 sources) Encounter for immunization; Translations: [ENCOUNTER FOR IMMUNIZATION] Onset: 07-21-2020 Episodic Nonmalignant breast conditions (2 sources) Mastodynia; Translations: [MASTODYNIA] Onset: 06-29-2020 Episodic Other screening for suspected conditions (not mental disorders or infectious disease) (1 source) Encounter for screening mammogram for malignant neoplasm of breast; Translations: [Encounter for screening mammogram for malignant neoplasm of breast] Onset: 08-31-2024 Episodic Results Test Name Value Interpretation Reference Range Facility MR/PATMartha 11-30-2024 MR/PATZANE [facility] Medical Records Department [address] [place] [address] PAT - Anesthesia 11/30/24 1602 MR#: [id number] Acct: [id number] Name: BELEN NUNEZ Rep #: [id number] : 1950 74 From: Jason Farfan MD PCP: Dr. 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 When Was Last Pacemaker Check QUESTION #4 FULL TEXT: You/Your Family Experience fever (hyperthermia) with Anesthesia Last Oral Intake Last Oral intake: Last Oral Intake NPO since Meds taken in AM with sips of water? 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 Female Yes 11/30/24 13:08 HX of Motion Sickness Yes 11/30/24 13:08 HX of N/V After Surgery No 11/30/24 13:08 Non-Smoker Yes 11/30/24 13:08 Duration of Surgery greater No 11/30/24 13:08 than 60 minutes Number of Risk Factors 3 11/30/24 13:08 PONV Score Moderate Risk 11/30/24 13:08 Height Weight Height Weight: Anesthesia: Height Weight Height 5 ft 3 in 08/13/24 11:05 Respiratory Assessment Respiratory Assessment - postal worker: Respiratory Tract Infection Hx - postal worker Hx Respiratory Tract Infection No 11/30/24 13:08 STOP Sleep Apnea STOP Sleep Apnea - postal worker: STOP Sleep Apnea - postal worker Hx Hypertension Yes: CONTROLLED ON MED 11/30/24 13:08 Hx Sleep Apnea No 11/30/24 13:08 CPAP BIPAP Do you snore loudly (louder No 11/30/24 13:08 than talking or can be heard Do you often feel tired/ No 11/30/24 13:08 fatigued/ sleepy during daytime? Has anyone observed you stop No 11/30/24 13:08 breathing during sleep? STOP Results Negative 11/30/24 13:08 QUESTION #5 FULL TEXT : Do you snore loudly (louder than talking or can be heard through closed doors)? 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 Specify any problems Hx of Preganancy in last 3 No 11/30/24 13:08 Months Nurse Filling Out Transfusion VCHRISTIN 11/30/24 13:08 Questions: Date: 11/30/24 11/30/24 13:08 Time: 13:09 11/30/24 13:08 Patient unable to answer at this time (ie. confused, unrespo /Reproduction History /Reproductive History - postal worker: /Reproductive Hx- postal worker Hx Now No 11/30/24 13:08 Gestational Age (in weeks): EDC: Hx Hx Para Hx Section SAB No 11/30/24 13:08 [facility] Medical History (Updated 11/30/24 @ 13:08 by Elly Bonner) Wears hearing aid High cholesterol Back pain History of hiatal hernia Gastric reflux Leg cramps History of pain when walking History of echocardiogram History of stress test Cardiology follow-up encounter Health care maintenance Atherosclerosis of coronary artery without angina pectoris CAD (coronary artery disease) Anemia Post-menopausal Vaginal odor PMR (polymyalgia rheumatica) Trigger finger of right hand Myalgia Arthritis Osteoarthritis Chronic pain Cough Callus of foot Generalized anxiety disorder Hyperlipidemia GERD (gastroesophageal reflux disease) Osteoporosis Hearing difficulty of both ears Generalized osteoarthrosis, unspecified site Macular degeneration Fibromyalgia Pure hypertriglyceridemia Essential hypertension Home Medications ???Medication ???Instructions ???Recorded ???Last Taken ???Type aspirin 81 mg tablet,delayed 81 mg PO DAILY 03/27/21 (more content not included)... Normal [facility] Gastroenterology Visit Repor ton 10-11-2024 Gastroenterology Visit Report [facility] Gastroenterology [address] [place] [address] OFFICE VISIT Date of Service: 10/11/24 MR#: [id number] Acct: [id number] Name: BELEN NUNEZ Rep #: [id number] : 1950 Provider: YVROSE augustine Age/Sex: 74/F Location: [facility] Status: Signed Intake Vital Signs 08/13/24 11:05 Height 5 ft 3 in Weight: 186 lb BMI 32.9 BP 118/66 Blood Pressure Location Lt brachial Position Sitting Respiration 18 Pulse 75 Pulse Source Monitor Temp 98.2 F Temp Source Temporal Pulse Oximetry (%) 98 Oxygen Delivery Method room air Intake Visit Reasons: Antoine's Chief Complaint: h/o BE? Allergies rosuvastatin Allergy (Mild, Verified 10/11/24 09:30) muscle ache simvastatin Allergy (Mild, Verified 10/11/24 09:30) muscle ache Medications ???Medication ???Instructions ???Recorded ???Confirmed ???Type aspirin 81 mg tablet,delayed 81 mg PO DAILY 03/27/21 10/11/24 H istory release (Adult Low Dose Aspirin) calcium citrate 800 mg PO BID 03/27/21 10/11/24 Hi story cholecalciferol (vitamin D3) 10 20 mcg PO BID 03/27/21 10/11/24 Hi story mcg (400 unit) tablet cyanocobalamin (vitamin B-12) 1,500 mcg PO DAILY 03/27/21 History 1,000 mcg capsule ferrous sulfate 325 mg (65 mg 325 mg PO Q OTHER DAY #90 tabs 10/11/24 Rx iron) tablet duloxetine 60 mg capsule,delayed 60 mg PO BID #180 caps 07/26/24 Rx release alendronate 70 mg tablet (Fosamax) 70 mg PO QWEEK #20 tabs 08/13/24 10/11/24 Rx ezetimibe 10 mg tablet 10 mg PO DAILY #90 tabs 08/13/24 0 10/11/24 Rx metoprolol succinate 50 mg 50 mg PO DAILY #14 tabs 10/07/24 0 10/11/24 Rx tablet,extended release 24 hr omeprazole 20 mg capsule,delayed 20 mg PO QDAY #90 caps 10/11/24 Rx release Have you fallen in the past year?: No Nurse's Note: Had scope years ago, 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 Here today for a follow up in regards to that not currently having any symptoms has been getting along fine since having procedure done. Procedure was done about 10 years ago patient stated. [facility] Medical History Health care maintenance Atherosclerosis of coronary artery without angina pectoris Generalized osteoarthrosis, unspecified site Macular degeneration Fibromyalgia Pure hypertriglyceridemia Essential hypertension CAD (coronary artery disease) Anemia Post-menopausal Vaginal odor PMR (polymyalgia rheumatica) Trigger finger of right hand Myalgia Arthritis Osteoarthritis Chronic pain Cough Callus of foot Generalized anxiety disorder Hyperlipidemia GERD (gastroesophageal reflux disease) Osteoporosis Hearing difficulty of both ears Surgical History H/O cataract removal with insertion of prosthetic lens H/O right wrist surgery S/P appendectomy Family History Other Myocardial infarction Social History Smoking Status: Never smoker alcohol intake: current alcohol intake frequency: holidays/special occasions only substance use type: does not use caffeine: Yes what type of physical activity do you participate in: none seatbelt use: always do you feel safe at home: Yes additional social history: HPI HPI Chief Complaint: h/o BE? Details: BELEN NUNEZ, is a 74 F who presents to the office today for establishment with [facility] regarding concerns for BE follow-up. She had an EGD in 2014 due to increase in heartburn-doctor suspected BE. She then had a repeat EGD 6mos later but no testing was done for BE. She reports cough, sinus drainage and throat clearing. She also reports heartburn and reflux with garlic and tomato based sauces, she takes Tums for this 2 to 3 times a week. States I love my garlic. She states that she believed her cough was residual from her last COVID infection in April 2023. She reports daily complete BMs without straining. She still has her gallbladder but has her appendix removed. She denies difficulty chewing and swallowing, nausea, emesis, abdominal bloating, pain, constipation, diarrhea, hematochezia, and melena. ROS Const Constitutional: No chills, fatigue, fever(s) or weight change Eyes Eyes: No change in vision ENT ENT: No abnormal hearing or difficulty swallowing Resp Respiratory: Positive for cough Cardio Cardiology: No chest pain at rest, chest pain with exertion or leg pain with exertion Gastro GI: Positive for heartburn; No abdominal pain, belching, bloating, change in bowel habits, change in stool character, coffee ground emesis, constipation, cramping, diarrhea, difficulty swallow (more content not included)... [facility] Breast imaging reportOrdered By: Miki Mora on 08-27-[address] [facility] Imaging Services [address] [place] [address] SCRN MAMM (CAD)W/NORMA BILAT MR#: [id number] Acct: [id number] Name: BELEN NUNEZ Rep #: [id number] : 1950 F 74 From: Elvis Mora MD PCP: Dr. Anna Hightower MD Status: R CLI Study:SCRN MAMM (CAD)W/NORMA BILAT Date of Exa m: 08/26/24 Exam# [id number] Ordering Dr: Bhargav Hightower MD EXAM: SCRN MAMM (CAD)W/NORMA BILAT DATE: 08/26/2024 CLINICAL HISTORY: F, Age 74 y/o , BREAST CANCER SCREENING Aunt with breast cancer. BREAST CANCER RISK ASSESSMENT: Not assessed. TECHNIQUE: Bilateral screening digital breast tomosynthesis with 2D and 3D images. Computeraided detection. COMPARISON: Prior exam(s) dated August 15, 2023.. FINDINGS: TISSUE DENSITY: The breast tissue is heterogenously dense, which may obscure small masses. Bilateral Breast Mammographic Findings: No significant masses, calcifications or other abnormalities are identified. No suspicious masses, areas of developing architectural distortion, or suspicious calcifications. There has been no significant interval change. BI/SCRN MAMM (CAD)W/NORMA BILAT IMPRESSION: OVERALL FINAL ASSESSMENT: BIRADS 1 NEGATIVE RECOMMENDATION: Routine annual follow-up in 1 Year A letter with findings and recommendations will be mailed to the patient. Reading Location: [place] [address] CC: Dr. Anna Hightower MD ~ Brick Baker: Signed [facility] Bone density reportOrdered B y: Miki Mora on 08-26-2024 Study report Skeletal system DXA [facility] Imaging Services [address] [place] [address] [id number] Dexa Bone Density Study MR#: [id number] Acct: [id number] Name: BELEN NUNEZ Rep #: [id number] : 1950 F 74 From: Elvis Mora MD PCP: Dr. Anna Hightower MD Status: R EG CLI Study:Dexa Bone Density Study Date of Exam: 08/26/24 Exam# [id number] Ordering Dr: Bhargav Hightower MD PROCEDURE: DEXA BONE DENSITY STUDY 08/26/2024 REASON FOR EXAM: POST MENOPAUSAL F, age 74 y/o . Postmenopausal. TECHNIQUE: DXA scan of sites with data reported below. [facility]KS[facility] COMPARISON: Comparison is made with prior study dated August 13, 2022. FINDINGS: BMD and T-SCORES Lumbar spine: 1.174 g/cm2, T-score 1.2 Levels: L1 through L4 Change from prior: Loss of 2.6%. Left femoral neck: 0.549 g/cm2, T-score -2.7 Femoral neck comparison data not recommended for monitoring change. Left total hip: 0.800 g/cm2, T-score -1.2 Change from prior: Loss of 0.5%. Right femoral neck: 0.563 g/cm2, T-score -2.6 Femoral neck comparison data not recommended for monitoring change. Right total hip: 0.802 g/cm2, T-score -1.1 Change from prior: Improvement by 2.1%. The World Health Organization has defined the following categories based on bonedensity: Normal bone density: T-score equal to or greater than -1.0 Osteopenia: T-score between -1.0 and -2.5 Osteoporosis: T-score equal to or less than -2.5 FRAX (or Comparable) Fracture Risk Assessment: (Note: FRAX is not to be reported in setting of normal range bone density, osteoporosis on DEXA, known history of osteoporosis, prior osteoporotic hip or vertebral fracture, or for any patient undergoing pharmacological treatment for bone loss.) The National Osteoporosis Foundation (NOF) recommends pharmacological treatment for patients with a FRAX 10-year risk of 3% or higher for a hip fracture, or 20% or higher for a major osteoporotic fracture, to prevent osteoporosis and reduce fracture risk. The patient does meet the pharmacological treatment recommendations for prevention of osteoporosis. BD/Dexa Bone Density Study IMPRESSION: OSTEOPOROSIS. Recommend follow-up as clinically warranted. Reading Location: [place] [address] CC: Dr. Anna Hightower MD ~ Brick Baker: Signed [facility] Dexa Bone Density Studyon Dexa Bone Density Study [facility] Imaging Services [address] [place] [id number] Dexa Bone Density Study MR#: [id number] Acct: [id number] Name: BELEN NUNEZ Rep #: [id number] : 1950 F 74 From: Miki ryan MD PCP: Dr. Anna Hightower MD Status: [facility] Study: Dexa Bone Density Study Date of Exam: 08/26/24 Exam# [id number] Ordering Dr: Anna Hightower MD PROCEDURE: DEXA BONE DENSITY STUDY 08/26/2024 REASON FOR EXAM: POST MENOPAUSAL F, age 74 y/o . Postmenopausal. TECHNIQUE: DXA scan of sites with data reported below. REFERENCE LINKS: [facility] Positions COMPARISON: Comparison is made with prior study dated August 13, 2022. FINDINGS: BMD and T-SCORES Lumbar spine: 1.174 g/cm2, T-score 1.2 Levels: L1 through L4 Change from prior: Loss of 2.6%. Left femoral neck: 0.549 g/cm2, T-score -2.7 Femoral neck comparison data not recommended for monitoring change. Left total hip: 0.800 g/cm2, T-score -1.2 Change from prior: Loss of 0.5%. Right femoral neck: 0.563 g/cm2, T-score -2.6 Femoral neck comparison data not recommended for monitoring change. Right total hip: 0.802 g/cm2, T-score -1.1 Change from prior: Improvement by 2.1%. The World Health Organization has defined the following categories based on bone density: Normal bone density: T-score equal to or greater than -1.0 Osteopenia: T-score between -1.0 and -2.5 Osteoporosis: T-score equal to or less than -2.5 FRAX (or Comparable) Fracture Risk Assessment: (Note: FRAX is not to be reported in setting of normal range bone density, osteoporosis on DEXA, known history of osteoporosis, prior osteoporotic hip or vertebral fracture, or for any patient undergoing pharmacological treatment for bone loss.) The National Osteoporosis Foundation (NOF) recommends pharmacological treatment for patients with a FRAX 10-year risk of 3% or higher for a hip fracture, or 20% or higher for a major osteoporotic fracture, to prevent osteoporosis and reduce fracture risk. The patient does meet the pharmacological treatment recommendations for prevention of osteoporosis. BD/Dexa Bone Density Study IMPRESSION: OSTEOPOROSIS. Recommend follow-up as clinically warranted. Reading Location: [place] [address] CC: Dr. Anna Hightower MD Brick Baker: Signed Normal [facility] SCRN MAMM (CAD)W/NORMA Emiliano n 08-26-2024 SCRN MAMM (CAD)W/NORMA BILAT [facility] Imaging Services [address] [place] [address] SCRN MAMM (CAD)W/NORMA BILAT MR#: [id number] Acct: [id number] Name: BELEN NUNEZ Rep #: [id number] : 1950 F 74 From: Miki ryan MD PCP: Dr. Anna Hightower MD Status: [facility] CLI Study: SCRN MAMM (CAD)W/NORMA BILAT Date of Exam: 08/04 08/27 Exam# [id number] Ordering Dr: Anna Hightower MD EXAM: SCRN MAMM (CAD)W/NORMA BILAT DATE: 08/26/2024 CLINICAL HISTORY: F, Age 74 y/o , BREAST CANCER SCREENING Aunt with breast cancer. BREAST CANCER RISK ASSESSMENT: Not assessed. TECHNIQUE: Bilateral screening digital breast tomosynthesis with 2D and 3D images. Computer aided detection. COMPARISON: Prior exam(s) dated August 15, 2023.. FINDINGS: TISSUE DENSITY: The breast tissue is heterogenously dense, which may obscure small masses. Bilateral Breast Mammographic Findings: No significant masses, calcifications or other abnormalities are identified. No suspicious masses, areas of developing architectural distortion, or suspicious calcifications. There has been no significant interval change. BI/SCRN MAMM (CAD)W/NORMA BILAT IMPRESSION: OVERALL FINAL ASSESSMENT: BIRADS 1 NEGATIVE RECOMMENDATION: Routine annual follow-up in 1 Year A letter with findings and recommendations will be mailed to the patient. Reading Location: [facility]--1 CC: Dr. Anna Hightower MD Brick Baker: Signed Normal [facility] Anion gap in Serum or Plasma Ordered By: Anna Hightower on 08-13-2024 Anion gap [Moles/Vol] 13 mmol/L 5-15 [facility] BUN/creatinine ratioOrdered By: Anna Hightower on 08-13-2024 Urea nitrogen/Creatinine [Mass ratio] 19.2 mg/mg 10- [facility] Basic Metabolic Profile (BMP )on 08-13-2024 BUN/CRE 19.2 RATIO Normal 10-20 [facility] Comment on above: Performed By: #### L 506.1001, L500.2500 #### [facility] [address] [place], [address] Calcium [Mass/Vol] 11.3 mg/dL High 7.6-11.0 [facility] Comment on above: Performed By: #### L 506.1001, L500.2500 #### [facility] [address] [place], [address] Chloride [Moles/Vol] 102 mmol/L Normal 98-108 [facility] Comment on above: Performed By: #### L 506.1001, L500.2500 #### [facility] [address] [place], [address] CO2 [Moles/Vol] 25.4 mmol/L Normal 21.0-32.0 [facility] Comment on above: Performed By: #### L 506.1001, L500.2500 #### [facility] [address] [place], [address] Creatinine [Mass/Vol] 0.71 mg/dL Normal 0.70-1.20 [facility] Comment on above: Performed By: #### L 506.1001, L500.2500 #### [facility] [address] [place], [address] GAP 13 Normal 5-15 [facility] Comment on above: Performed By: #### L 506.1001, L500.2500 #### [facility] [address] [place], [address] GFR/1.73 sq M.predicted among non-blacks MDRD (S/P/Bld) [Vol rate/Area] 89 mL/min/{1.73_m2} Normal >60 [facility] Comment on above: Result Comment: mL/m in/1.73m2 CKD-EPI Creatinine Equation (2020) Performed By: #### L 506.1001, L500.2500 #### [facility] [address] [place], [address] Glucose [Mass/Vol] 93 mg/dL Normal 70-99 [facility] Comment on above: Performed By: #### L 506.1001, L500.2500 #### [facility] [address] [place], [address] Potassium [Moles/Vol] 5.1 mmol/L Normal 3.3-5.1 [facility] Comment on above: Performed By: #### L 506.1001, L500.2500 #### [facility] [address] [place], [address] Sodium [Moles/Vol] 140 mmol/L Normal 133-145 [facility] Comment on above: Performed By: #### L 506.1001, L500.2500 #### [facility] [address] [place], [address] Urea nitrogen [Mass/Vol] 14 mg/dL Normal 4-19 [facility] Comment on above: Performed By: #### L 506.1001, L500.2500 #### [facility] [address] [place], [address] Carbon dioxide, total [Moles /volume] in Central venous bloodOrdered By: Anna Hightower on 08-13-2024 CO2 [Moles/Vol] 25.4 mmol/L 21.0-32.0 [facility] Chloride assayOrdered By: Jewel Hightower on 08-13-2024 Chloride [Moles/Vol] 102 mmol/L 98-108 [facility] GFR/1.73 sq M.predicted debra g non-blacks MDRD (S/P/Bld) [Vol rate/Area]Ordered By: Anna Hightower on 08-13-2024 Estimated GFR (MDRD) Non-Af Amer 89 >60 [facility] Comment on above: mL/min/1.73m2 CKD-EP I Creatinine Equation (2020) Glomerular filtration rate ( GFR) estimation/1.73 sq m using serum, plasma, or whole bOrdered By: Anna Hightower on 08-13-2024 GFR/1.73 sq M.predicted among non-blacks MDRD (S/P/Bld) [Vol rate/Area] 89 mL/min/{1.73_m2} >60 [facility] Comment on above: mL/min/1.73m2 CKD-EP I Creatinine Equation (2020) Internal Medicine Office Vis itoromy 08-13-2024 Internal Medicine Office Visit [facility] [place] [address] OFFICE VISIT Date of Service: 08/13/24 MR#: [id number] Acct: [id number] Name: BELEN NUNEZ Rep #: [id number] : 1950 Provider: Dr. Anna rodríguez MD Age/Sex: 74/F Location: [facility] Status: Signed Intake Vital Signs 04/09/24 10:26 08/13/24 11:05 Height 5 ft 3 in 5 ft 3 in Weight: 186 lb BMI 32.9 BP 118/66 Blood Pressure Location Lt brachial Position Sitting Respiration 18 Pulse 75 Pulse Source Monitor Temp 98.2 F Temp Source Temporal Pulse Oximetry (%) 98 Oxygen Delivery Method room air Intake Visit Reasons: 4 M FU Chief Complaint: 4 M FU Is patient in pain?: No Allergies rosuvastatin Allergy (Mild, Verified 08/13/24 11:07) muscle ache simvastatin Allergy (Mild, Verified 08/13/24 11:07) muscle ache Medications ???Medication ???Instructions ???Recorded ???Confirmed ???Type aspirin 81 mg tablet,delayed 81 mg PO DAILY 03/27/21 08/13/24 H istory release (Adult Low Dose Aspirin) calcium citrate 800 mg PO BID 03/27/21 08/13/24 Hi story cholecalciferol (vitamin D3) 10 20 mcg PO BID 03/27/21 08/13/24 Hi story mcg (400 unit) tablet cyanocobalamin (vitamin B-12) 1,500 mcg PO DAILY 03/27/21 History 1,000 mcg capsule ferrous sulfate 325 mg (65 mg 325 mg PO Q OTHER DAY #90 tabs 08/13/24 Rx iron) tablet metoprolol succinate 50 mg 50 mg PO DAILY #90 tabs 07/07/23 0 08/13/24 Rx tablet,extended release 24 hr atorvastatin 20 mg tablet 20 mg PO 3XW #60 tabs 01/07/2403/29 Rx duloxetine 60 mg capsule,delayed 60 mg PO BID #180 caps 07/26/24 Rx release alendronate 70 mg tablet (Fosamax) 70 mg PO QWEEK #20 tabs 08/13/24 08/13/24 Rx ezetimibe 10 mg tablet 10 mg PO DAILY #90 tabs 08/13/24 0 08/13/24 Rx Have you fallen in the past year?: No PFSH Medical History (Updated 08/13/24 @ 14:[address] Anna Hightower MD) Health care maintenance Atherosclerosis of coronary artery without angina pectoris Generalized osteoarthrosis, unspecified site Macular degeneration Fibromyalgia Pure hypertriglyceridemia Essential hypertension CAD (coronary artery disease) Anemia Post-menopausal Vaginal odor PMR (polymyalgia rheumatica) Trigger finger of right hand Myalgia Arthritis Osteoarthritis Chronic pain Cough Callus of foot Generalized anxiety disorder Hyperlipidemia GERD (gastroesophageal reflux disease) Osteoporosis Hearing difficulty of both ears Surgical History (Updated 04/09/24 @ 10:29 by Juliana Johnston LPN) H/O cataract removal with insertion of prosthetic lens H/O right wrist surgery S/P appendectomy Family History Other Myocardial infarction Social History Smoking Status: Never smoker alcohol intake: current alcohol intake frequency: holidays/special occasions only substance use type: does not use caffeine: Yes what type of physical activity do you participate in: none seatbelt use: always do you feel safe at home: Yes additional social history: HPI HPI Chief Complaint: 4 M FU Details: BELEN NUNEZ, is a 74 F who presents to the office today for follow-up of her chronic conditions. She states that 10 years ago she had a fundoplication. Had an EGD at that time following the first EGD, there was concern for barrettes. She had a repeat EGD 6 months later and when she asked about it, she was told that it was not checked for. Currently not on a PPI. No dark or bloody stool or unintentional weight loss. Has not had a repeat EGD since then. History of hyperlipidemia, currently on Zetia and atorvastatin which she takes just a couple days a week. Doing much better on this regimen and her lipid profile has improved. No muscle pain or weakness. Other chronic medical conditions are stable. ROS Const Constitutional: No body ache, chills, excessive sweating, fatigue, fever(s), frequent falls, headache(s), snoring, weight change, sleep problems, abnormal sleep pattern or change in appetite Eyes Eyes: No blurry vision, change in vision, bulging eyes, floaters, visual disturbances, eye pain or Light sensitivity ENT ENT: No abnormal hearing, ear or mastoid pain, tinnitus, balance problems, nosebleed/epistaxis, nasal congestion, headache(s), neck pain or sore throat Resp Respiratory: No cough, excessive phlegm production, pain on inspiration, shortness of breath, snoring or wheezing Cardio Cardiology: No chest pain at rest, chest pain with exertion, excessive sweating, shortness of breath, dyspnea on exertion, lightheadedness, orthopnea or palpitations Gastro GI: No abdominal pain, change in bowel habits, constip (more content not included)... Normal [facility] Potassium (Unsp spec) [Mass/ Vol]Ordered By: Anna Hightower on 08-13-2024 Potassium [Moles/Vol] 5.1 mmol/L 3.3-5.1 [facility] Potassium measurement (mass/ volume)Ordered By: Anna Hightower on 08-13-2024 Potassium (Unsp spec) [Mass/Vol] 5.1 mmol/L 3.3-5.1 [facility] Serum creatinine measurement (mass/volume)Ordered By: Anna Hightower on 08-13-2024 Creatinine [Mass/Vol] 0.71 mg/dL 0.70-1.20 [facility] Serum glucose measurement (m ass/volume)Ordered By: Anna Hightower on 08-13-2024 Glucose [Mass/Vol] 93 mg/dL 70-99 [facility] Serum or plasma calcium carmen urement (mass/volume)Ordered By: Anna Hightower on 08-13-2024 Calcium [Mass/Vol] 11.3 mg/dL High 7.6-11.0 [facility] Serum or plasma urea nitroge n measurement (mass/volume)Ordered By: Anna Hightower on 08-13-2024 Urea nitrogen [Mass/Vol] 14 mg/dL 4-19 [facility] Sodium levelOrdered By: Aakash sheajessiebhargav Hightower on 08-13-2024 Sodium [Moles/Vol] 140 mmol/L 133-145 [facility] Vitamin D, 25-hydroxyOrdered By: [facility] on 08-13-2024 Vitamin D 25-Hydroxy 36.4 ng/mL 30-100 [facility] Comment on above: Vitamin D StatusDefi ciency: <20 ng/mL (50nmol/L)Insufficiency: 20-30 ng/mL (50-75 nmol/L)Sufficiency: 30-100 ng/mL (75-250 nmol/L)Toxicity: >100 ng/mL (>250 nmol/L) Vitamin D,25 Hydroxyon 08-13 Vitamin D 25-OH 36.4 ng/mL Normal 30-100 [facility] Comment on above: Result Comment: Conchita min D Status Deficiency: <20 ng/mL (50nmol/L) Insufficiency: 20-30 ng/mL (50-75 nmol/L) Sufficiency: 30-100 ng/mL (75-250 nmol/L) Toxicity: >100 ng/mL (>250 nmol/L) Performed By: #### L 506.1001, L500.2500 #### [facility] [address] [place], [address] Echo Completeon 04-12-2024 Echo Complete [facility] Cardiovascular Services [address] [place] [address] Echo Complete 04/12/24 0833 MR#: [id number] Acct: [id number] Name: BELEN NUNEZ Rep #: [id number] : 1950 74 From: Evert Davenport MD Attending Dr: Dr. Evert Davenport MD Status: ЕЛЕНА COLEMAN Ordering Dr: Evert Davenport MD Date: 04/12/24 Location: [facility] Sex: F C Admitted: Version 2 Reason For Study: HYPERTENSION/ CAD Procedure This was a 2D Doppler, Color Flow transthoracic echocardiogram. Exam performed in department. Left Ventricle Normal LV size. Left ventricular systolic function is normal. The left ventricular ejection fraction is 60 %. Stage 1 diastolic dysfunction. No regional wall motion abnormalities noted. Right Ventricle Normal RV size. Normal systolic function. Atria Normal left atrium. Normal right atrium. Mitral Valve Normal mitral valve. Tricuspid Valve Normal tricuspid valve. Mild (1+) tricuspid valve insufficiency. Pulmonary artery systolic pressure is 28 mmHg. Aortic Valve Trisinus/trileaflet aortic valve. Pulmonic Valve Normal pulmonic valve. Great Vessels Normal aortic root. The pulmonary artery is normal size. Inferior vena cava collapse with respiration. Pericardium/Pleural No pericardial effusion. MMode/2D Measurements Calculations LVIDd: 4.5 cm IVSd: 1.1 cm LVOT diam: 2.0 cm LVIDs: 2.8 cm LVPWd: 0.97 cm LVOT area: 3.1 cm2 RVDd: 3.0 cm FS: 37.4 % asc Aorta Diam: 3.7 cm LAV(MOD-bp): 43.0 ml LVAd ap4: 21.4 cm2 LAV(MOD-bp) Indexed: 23.5 ml/m2 LVLd ap4: 7.1 cm LAV(MOD-sp2): 37.2 ml EDV(MOD-sp4): 53.2 ml LAV(MOD-sp4): 45.6 ml EDV(sp4-el): 55.2 ml LVAs ap4: 11.8 cm2 LVLs ap4: 5.9 cm ESV(MOD-sp4): 20.1 ml ESV(sp4-el): 20.1 ml EF(MOD-sp4): 62.2 % EF(sp4-el): 63.5 % LVAd ap2: 17.7 cm2 SV(MOD-sp4): 33.1 ml SV(MOD-sp2): 24.5 ml LVLd ap2: 6.7 cm SI(MOD-sp4): 18.1 ml/m2 SI(MOD-sp2): 13.4 ml/m2 EDV(MOD-sp2): 38.2 ml EDV(sp2-el): 39.6 ml LVAs ap2: 9.6 cm2 LVLs ap2: 5.6 cm ESV(MOD-sp2): 13.7 ml ESV(sp2-el): 13.9 ml EF(MOD-sp2): 64.3 % SV(sp4-el): 35.0 ml Ao sinus diam: 3.[address] Junction: 3.0 cm LA dimension(2D): 4.3 cm LA A4 area: 17.1 cm2 RA A4 area: 14.8 cm2 TAPSE: 1.7 cm Time Measurements MV dec time: 0.19 sec Doppler Measurements Calculations MV E max marie: 59.9 cm/sec Lat Peak E' Marie: 8.1 cm/sec Med Peak E' Marie: 5.6 cm/sec MV A max marie: 101.1 cm/sec E/E' lat: 7.4 E/E' med: 10.6 MV E/A: 0.59 MV dec slope: 312.3 cm/sec2 Ao V2 max: 130.6 cm/sec LV V1 max: 84.7 cm/sec Ao max P.8 mmHg LV V1 max P.9 mmHg Ao V2 mean: 95.7 cm/sec LV V1 mean P.9 mmHg Ao mean P.9 mmHg LV V1 mean: 66.5 cm/sec Ao V2 VTI: 27.9 cm LV V1 VTI: 20.3 cm AV (velocity ratio): 0.73 MINGO(I,D): 2.3 cm2 MINGO(V,D): 2.0 cm2 SV(LVOT): 63.7 ml PA V2 max: 70.9 cm/sec TR max marie: 244.6 cm/sec TR max P.9 mmHg ECHO/Echo Complete Interpretation Summary Normal LV size. Left ventricular systolic function is normal. The left ventricular ejection fraction is 60 %. Stage 1 diastolic dysfunction. Structurally normal valves. Ordering Physician: Evert Davenport Referring Physician: Anna Hightower Performed By: Mariama Chavez RDCS 04/12/24928 Date Evert Davenport MD CC: Dr. Evert Davenport MD; Dr. Anna Hightower MD Date Dictated: 04/12/24832 Date Transcribed: 04/12/24928 Brick Baker: Signed Normal [facility] Stress Reporton 04-12-2024 Stress Report [facility]ovascular Services [address] [place] [address] MR#: [id number] Acct: [id number] Name: BELEN NUNEZ Rep #: [id number] : 1950 74 From: Evert Davenport MD Primary Care: Dr. Anna Hightower MD Status: REG I Referring Dr: Evert Davenport MD Sex: F C Stress Test Report Exercise myocardial perfusion stress test. 74-year-old with a history of coronary disease and elevated calcium score Stress protocol: Resting EKG demonstrates normal sinus rhythm with a rate of 64 bpm resting blood pressure is 122/80 mmHg. The patient exercised according to the regular [place] protocol for a total duration of 3 minutes and 45 seconds attaining a maximum heart rate of 134 bpm which was 92% of maximum predicted heart rate; the maximum workload was 6.4 metabolic equivalents. At rest there were no ST or T wave changes noted to suggest ischemia and at peak exercise upsloping ST changes only were noted which did not meet the criteria for ischemia. No clinical angina was noted the test was terminated due to the target heart rate being achieved/fatigue. The peak blood pressure was 158/88 mmHg. Rate- pressure product was 17,300. Myocardial perfusion protocol. 11.7 mCi of technetium 99m sestamibi was injected at rest. The patient exercised according to regular [place] protocol for total duration of 3 minutes and 45 seconds and at peak exercise 34.1 mCi of technetium 99m sestamibi was injected stress images were obtained stress and rest images were reconstructed in comparing the short axis vertical long and horizontal long axis. Gated images were also obtained. Perfusion SPECT analysis: Review of the stress images demonstrate normal uptake of tracer noted in all areas of the myocardium. The resting images similarly demonstrate normal uptake of tracer noted in all areas of the myocardium. No areas of reversibility are noted to suggest ischemia no previous infarct was noted. Gated SPECT analysis: The gated ejection fraction is 81%. Conclusion: Normal exercise myocardial perfusion stress test at a moderate workload Preserved ejection fraction. 04/12/241625 Date Evert Davenport MD CC: Dr. Evert Davenport MD; Dr. Anna Hightower MD Date Dictated: 04/12/241623 Date Transcribed: 04/12/241623 Brick Baker: [place] Signed Normal [facility] Internal Medicine Office Vis kathya 04-09-2024 Internal Medicine Office Visit [facility] [address] [place] [address] OFFICE VISIT Date of Service: 04/09/24 MR#: [id number] Acct: [id number] Name: BELEN NUNEZ Rep #: [id number] : 1950 Provider: Dr. Anna rodríguez MD Age/Sex: 74/F Location: [facility] Status: Signed Intake Vital Signs 01/07/24 08:34 03/17/24 15:09 04/09/24 10:26 Height 5 ft 3 in 5 ft 3 in 5 ft 3 in Weight: 186 lb BMI 32.9 BP 122/78 H Blood Pressure Location Lt brachial Position Sitting Respiration 17 Pulse 80 Pulse Source Monitor Temp 98.4 F Temp Source Temporal Pulse Oximetry (%) 99 Oxygen Delivery Method room air Intake Visit Reasons: 3 M FU Chief Complaint: 3 M FU Is patient in pain?: No Allergies rosuvastatin Allergy (Mild, Verified 04/09/24 10:27) muscle ache simvastatin Allergy (Mild, Verified 04/09/24 10:27) muscle ache Medications ???Medication ???Instructions ???Recorded ???Confirmed ???Type aspirin 81 mg tablet,delayed 81 mg PO DAILY 03/27/21 04/09/24 History release (Adult Low Dose Aspirin) calcium citrate 800 mg PO BID 03/27/21 04/09/24 History cholecalciferol (vitamin D3) 10 20 mcg PO BID 03/27/21 04/09/24 History mcg (400 unit) tablet cyanocobalamin (vitamin B-12) 1,500 mcg PO DAILY 03/27/21 04/09/24 History 1,000 mcg capsule ferrous sulfate 325 mg (65 mg 325 mg PO Q OTHER DAY #90 tabs 03/28/21 04/09/24 Rx iron) tablet ezetimibe 10 mg tablet 10 mg PO DAILY #90 tabs 07/07/23 04/09/24 Rx metoprolol succinate 50 mg 50 mg PO DAILY #90 tabs 07/07/23 04/09/24 Rx tablet,extended release 24 hr alendronate 70 mg tablet (Fosamax) 70 mg PO QWEEK #20 tabs 11/27/23 04/09/24 Rx atorvastatin 20 mg tablet 20 mg PO 3XW #60 tabs 01/07/24 04/09/24 Rx duloxetine 60 mg capsule,delayed 60 mg PO BID #180 caps 02/19/24 04/09/24 Rx release Have you fallen in the past year?: No PFSH Medical History Atherosclerosis of coronary artery without angina pectoris Generalized osteoarthrosis, unspecified site Macular degeneration Fibromyalgia Pure hypertriglyceridemia Essential hypertension CAD (coronary artery disease) Anemia Post-menopausal Vaginal odor PMR (polymyalgia rheumatica) Trigger finger of right hand Myalgia Arthritis Osteoarthritis Chronic pain Cough Callus of foot Generalized anxiety disorder Hyperlipidemia GERD (gastroesophageal reflux disease) Osteoporosis Hearing difficulty of both ears Surgical History (Updated 04/09/24 @ 10:29 by Juliana Johnston LPN) H/O cataract removal with insertion of prosthetic lens H/O right wrist surgery S/P appendectomy Family History Other Myocardial infarction Social History Smoking Status: Never smoker alcohol intake: current alcohol intake frequency: holidays/special occasions only substance use type: does not use caffeine: Yes what type of physical activity do you participate in: none seatbelt use: always do you feel safe at home: Yes additional social history: HPI HPI Chief Complaint: 3 M FU Details: BELEN NUNEZ, is a 74 F who presents to the office today for follow-up of her chronic conditions. No acute concerns at this time. Following her last visit, she has been on combination of atorvastatin and Zetia. Takes atorvastatin 3 days a week due to prior poor statin tolerance. Tolerating it better this way. Recent lipid profile reviewed and remarkable improvement in LDL cholesterol. She denies any concerning side effects. Also following up with cardiology due to coronary artery disease. Calcium scoring with significant disease noted. Plan is for stress test and an echo. Otherwise, she states that she feels well. History of osteoporosis on Fosamax, no recent fracture. Taking Fosamax, calcium and vitamin D supplements. ROS Const Constitutional: No body ache, chills, excessive sweating, fatigue, fever(s), frequent falls, headache(s), snoring, weight change, sleep problems, abnormal sleep pattern or change in appetite Eyes Eyes: No blurry vision, change in vision, bulging eyes, floaters, eye pain or Light sensitivity ENT ENT: No abnormal hearing, ear or mastoid pain, tinnitus, balance problems, nosebleed/epistaxis, nasal congestion, headache(s), neck pain or sore throat Resp Respiratory: No cough, excessive phlegm production, pain on inspiration, shortness of breath, snoring or wheezing Cardio Cardiology: No chest pain at rest, chest pain with exertion, excessive sweating, shortness of breath, dyspnea on exertion, lightheadedness, orthopnea or palpitations Gastro GI: No abdominal pain, change in bowel habits, constipation, cramping, diarrhea, (more content not included)... Normal [facility] Comprehensive Metabolic Prof ilon 04-05-2024 Albumin [Mass/Vol] 3.3 g/dL Normal 3.2-5.0 [facility] Comment on above: Performed By: #### L 500.4100, L500.4050 #### [facility] [address] [place], [address] Albumin/Globulin [Mass ratio] 0.8 {ratio} Low 0.9-2.4 [facility] Comment on above: Performed By: #### L 500.4100, L500.4050 #### [facility] [address] [place], [address] ALK P 77 U/L Normal 45-117 [facility] Comment on above: Performed By: #### L 500.4100, L500.4050 #### [facility] [address] [place], [address] ALT [Catalytic activity/Vol] 29 U/L Normal 13-56 [facility] Comment on above: Performed By: #### L 500.4100, L500.4050 #### [facility] [address] [place], [address] AST [Catalytic activity/Vol] 10 U/L Low 15-37 [facility] Comment on above: Performed By: #### L 500.4100, L500.4050 #### [facility] [address] [place], [address] Bilirubin [Mass/Vol] 0.40 mg/dL Normal 0.20-1.00 [facility] Comment on above: Result Comment: For patients on eltrombopag therapy, use of Dimension [place] TBIL is not recommended. Performed By: #### L 500.4100, L500.4050 #### [facility] [address] [place] [place], [address] BUN/CRE 12.5 RATIO Normal 10-20 [facility] Comment on above: Performed By: #### L 500.4100, L500.4050 #### [facility] [address] [place], [address] CA,Total 9.6 mg/dL Normal 8.5-10.1 [facility] Comment on above: Performed By: #### L 500.4100, L500.4050 #### [facility] [address] [place] [place], [address] Chloride [Moles/Vol] 109 mmol/L High 98-107 [facility] Comment on above: Performed By: #### L 500.4100, L500.4050 #### [facility] [address] [place], [address] CO2 [Moles/Vol] 27.0 mmol/L Normal 21.0-32.0 [facility] Comment on above: Performed By: #### L 500.4100, L500.4050 #### [facility] [address] [place], [address] Creatinine [Mass/Vol] 0.64 mg/dL Normal 0.55-1.02 [facility] Comment on above: Result Comment: The validity of the calculated GFR GFRAA in patients over 70 years has not been determined. Clinical correlation is essential. Performed By: #### L 500.4100, L500.4050 #### [facility] [address] [place] [place], [address] EST GFR - AA 116 mL/min Normal >60 [facility] Comment on above: Result Comment: Afri can [place] GFR Calc Performed By: #### L 500.4100, L500.4050 #### [facility] [address] [place], [address] GAP 5 Normal 5-15 [facility] Comment on above: Performed By: #### L 500.4100, L500.4050 #### [facility] [address] [place], [address] GFR/1.73 sq M.predicted among non-blacks MDRD (S/P/Bld) [Vol rate/Area] 96 mL/min/{1.73_m2} Normal >60 [facility] Comment on above: Result Comment: Non- GFR Calc Performed By: #### L 500.4100, L500.4050 #### [facility] [address] [place], [address] Globulin (S) [Mass/Vol] 4.0 g/dL Normal 2.2-4.2 [facility] Comment on above: Performed By: #### L 500.4100, L500.4050 #### [facility] [address] [place], [address] Glucose [Mass/Vol] 104 mg/dL Normal 74-106 [facility] Comment on above: Result Comment: Fast ing Glucose result from 100 to 125 mg/dL suggests IMPAIRED HOMEOSTASIS per A.D.A. criteria. Performed By: #### L 500.4100, L500.4050 #### [facility] [address] [place], [address] Potassium [Moles/Vol] 4.5 mmol/L Normal 3.5-5.1 [facility] Comment on above: Performed By: #### L 500.4100, L500.4050 #### [facility] [address] [place], [address] Sodium [Moles/Vol] 140 mmol/L Normal 136-145 [facility] Comment on above: Performed By: #### L 500.4100, L500.4050 #### [facility] [address] [place], [address] T PROT 7.3 g/dL Normal 6.4-8.2 [facility] Comment on above: Performed By: #### L 500.4100, L500.4050 #### [facility] [address] [place], [address] Urea nitrogen [Mass/Vol] 8 mg/dL Normal 7-18 [facility] Comment on above: Performed By: #### L 500.4100, L500.4050 #### [facility] [address] [place], [address] Lipid Profileon 04-05-2024 Cholesterol [Mass/Vol] 171 mg/dL Normal 200 [facility] Comment on above: Result Comment: <200 mg/dL Desirable 200-240 mg/dL Borderline >240 mg/dL High Risk Performed By: #### L 500.4100, L500.4050 #### [facility] [address] [place], [address] Cholesterol in HDL [Mass/Vol] 69 mg/dL Normal [facility] Comment on above: Result Comment: The drugs N-Acetylcysteine and Metamizole may falsely depress this assay. Reference Range HDL <40 mg/dL Low HDL Cholesterol HDL >or= 60 mg/dL High HDL Cholesterol Performed By: #### L 500.4100, L500.4050 #### [facility] [address] [place], [address] Cholesterol in LDL [Mass/Vol] 74 mg/dL Normal 0-130 [facility] Comment on above: Performed By: #### L 500.4100, L500.4050 #### [facility] [address] [place], [address] Cholesterol in VLDL [Mass/Vol] 28 mg/dL Normal 5-40 [facility] Comment on above: Performed By: #### L 500.4100, L500.4050 #### [facility] [address] [place], [address] Triglyceride [Mass/Vol] 142 mg/dL Normal [facility] Comment on above: Result Comment: The drugs N-Acetylcysteine and Metamizole may falsely depress this assay. Serum Triglycerides Reference Interval Normal <150 mg/dL Borderline high 150 - 199 mg/dL High 200 - 499 mg/dL Very High > or = 500 mg/dL Performed By: #### L 500.4100, L500.4050 #### [facility] [address] [place], [address] 12 Lead EKG performed by [facility] on 03-17-2024 12 Lead EKG performed by [facility] [address] [place] [address] 12 Lead EKG performed by [facility] 03/17/24 1509 MR#: [id number] Acct: [id number] Name: BELEN NUNEZ Rep #: [id number] : 1950 74 From: Evert Davenport MD Attending Dr: Dr. Evert Davenport MD Status: DEP A MB Ordering Dr: vEert Davenport MD Date: 03/17/24 [place] [facility] [place]: F C Admitted: BMS/12 Lead EKG performed by [facility] ECG Report Interpretation ---Sinus Rhythm Low voltage in precordial leads. -Poor R-wave progression -may be secondary to pulmonary disease consider old anterior infarct. - Nonspecific T-abnormality. ABNORMAL Electronically signed on 03/18/2024 at 08:09 by Evert Davenport [employer] Version [id number] 03/18/24 0814 Date Evert Davenport MD CC: Dr. Anna Hightower MD Date Dictated: 03/17/24 1509 Date Transcribed: 03/17/241508 Brick Baker: DALJIT Signed Normal [facility] Cardiology Visit Reporton Cardiology Visit Report [facility] [address] [place] [address] OFFICE VISIT Date of Service: 03/17/24 MR#: [id number] Acct: [id number] Name: BELEN NUNEZ Rep #: [id number] : 1950 Provider: Dr. Evert Davenport MD Age/Sex: 74/F Location: [facility] Status: Signed HPI HPI History of Present Illness Details: Pleasant 74-year-old lady who is here for cardiac risk stratification. She does have a history of hypertension, hyperlipidemia which has not been very tolerant of the statins and fibromyalgia. She said that she is so and add in the need to do a coronary calcium score which she had done which demonstrated a total score of 458 in the left anterior descending artery, 123 in the circumflex artery and 44 in the right coronary artery with a total Agatston score of 625. She has been doing well denying any chest pain or shortness of breath or paroxysmal nocturnal dyspnea or pedal edema she has had no neck arm or jaw discomfort suggest angina. Indeed she just returned from a trip to [place] where she climbed up and down the mountains. She has been compliant with her antihypertensive medications she has been on new regimen of low-dose statin as well as ezetimibe and she is doing well. Her physical exam is unremarkable her electrocardiogram demonstrates sinus rhythm with a rate of 71 bpm with poor R wave progression. 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 Assistant Required: No Accompanied by: Self Is patient in pain?: No Allergies rosuvastatin Allergy (Mild, Verified 03/17/24 15:23) muscle ache simvastatin Allergy (Mild, Verified 03/17/24 15:23) muscle ache Medications ???Medication ???Instructions ???Recorded ???Confirmed ???Type aspirin 81 mg tablet,delayed 81 mg PO DAILY 03/27/21 03/17/24 History release (Adult Low Dose Aspirin) calcium citrate 800 mg PO BID 03/27/21 03/17/24 History cholecalciferol (vitamin D3) 10 20 mcg PO BID 03/27/21 03/17/24 History mcg (400 unit) tablet cyanocobalamin (vitamin B-12) 1,500 mcg PO DAILY 03/27/21 03/17/24 History 1,000 mcg capsule ferrous sulfate 325 mg (65 mg 325 mg PO Q OTHER DAY #90 tabs 03/28/21 03/17/24 Rx iron) tablet ezetimibe 10 mg tablet 10 mg PO DAILY #90 tabs 07/07/23 03/17/24 Rx metoprolol succinate 50 mg 50 mg PO DAILY #90 tabs 07/07/23 03/17/24 Rx tablet,extended release 24 hr alendronate 70 mg tablet (Fosamax) 70 mg PO QWEEK #20 tabs 11/27/23 03/17/24 Rx atorvastatin 20 mg tablet 20 mg PO 3XW #60 tabs 01/07/24 03/17/24 Rx duloxetine 60 mg capsule,delayed 60 mg PO BID #180 caps 02/19/24 03/17/24 Rx release Have you fallen in the past year?: No PFSH Medical History Anemia Arthritis Atherosclerosis of coronary artery without angina pectoris CAD (coronary artery disease) Callus of foot Chronic pain Cough Essential hypertension Fibromyalgia Generalized anxiety disorder Generalized osteoarthrosis, unspecified site GERD (gastroesophageal reflux disease) Hearing difficulty of both ears Hyperlipidemia Macular degeneration Myalgia Osteoarthritis Osteoporosis PMR (polymyalgia rheumatica) Post-menopausal Pure hypertriglyceridemia Trigger finger of right hand Vaginal odor Surgical History H/O right wrist surgery S/P appendectomy Family History Other Myocardial infarction Social History Smoking Status: Never smoker alcohol intake: current alcohol intake frequency: holidays/special occasions only substance use type: does not use caffeine: Yes what type of physical activity do you participate in: none seatbelt use: always do you feel safe at home: Yes additional social history: ROS Const Const: Negative for fatigue, weakness, headache(s), daytime sleepiness or difficulty sleeping ENT ENT: Negative for headache(s), dizziness or Nosebleed/epistaxis Cardio Chest Pain: No Palpitations: No Edema: None Resp Respiratory: Negative for SOB with activity, SOB at rest, SOB orthopnea SOB lying down or Cough GI GI: Negative nausea, vomiting or heartburn Neuro Neuro: Negative for dizziness, lightheadedness, near syncope, headache(s) or weakness Endo Endo: Negative for fatigue Supplemental Info Supplemen (more content not included)... Normal [facility] Coronary Angiography CTon Coronary Angiography CT [facility] [address] [place] [address] 02/06/24 0819 MR#: [id number] Acct: [id number] Name: BELEN NUNEZ Rep #: [id number] : 1950 74 From: Evert Davenport MD PCP: Dr. Anna Hightower MD Status:REG CLI Y Location: CT Calcium Scoring Date of Study:: 02/06/24 Indications Indications: Family history Coronary Calcium Scoring: High-resolution Computed Tomographic imaging of the chest was performed on [02/06/2024], with particular attention paid to the coronary arteries. Images from the examination were analyzed for the presence and extent of coronary artery calcification , using coronary calcium quantification software. The patient tolerated the procedure well and there were no complications. The results of the coronary calcification analysis are provided below. Findings Coronary Artery Left Main (LM): 0 Left Anterior Descending (LAD): 458 Left Circumflex (LCX): 123 Right Coronary Artery (RCA): 44.7 Total Agatston Score: 625.7 Percentile Rankinth to 90th percentile Calcium Scoring Interpretation: Different methods to categorize the overall amount of coronary plaque. Overall amount CAC SIS Visual of coronary plaque P1 Mild -100 <2 1-2 vessels with mild amount of plaque P2 Moderate 101-300 3-4 1-2 vessels with moderate amount, 3 vessels with mild amount of plaque P3 Severe 301-999 5-7 3 vessels with moderate amount, 1 vessel with severe amount of plaque P4 Extensive >1000 >8 2-3 vessels with severe amount of plaque Calcium Score: Severe: 3 vessels w/moderate amount, 1 vessel w/severe amt of plaque Conclusion: Three-vessel disease with moderate amount of plaque and the LAD with severe amount of plaque. 02/06/24 0820 Date Evert Davenport MD Cosigner Signature (if applicable): Date CC: Dr. Evert Davenport MD; Dr. Anna Hightower MD Signed Normal [facility] Limited Chest CT Cardiac Onl yon 02-06-[address] Cardiac Only [facility] [address] [place] [id number] Cardiac Only MR#: [id number] Acct: [id number] Name: BELEN NUNEZ Rep #: [id number] : 1950 F 74 From: Miki ryan MD PCP: Dr. Anna Hightower MD Status: [facility] Study: Limited Chest CT Cardiac Only Date of Exam: Exam# [id number] Ordering Dr: [place] [id number] STUDY: CT CHEST WITHOUT CONTRAST REASON FOR EXAM: Female, 74 years old. Hyperlipidemia, unspecified RADIATION DOSAGE (If Supplied By Facility): CTDIvol = ( 12.19 ) mGy, DLP = ( 219.42 ) mGycm TECHNIQUE: Transaxial imaging was performed without the administration of intravenous contrast material. Cardiac over read examination. Individualized dose optimization techniques were used for this CT. COMPARISON: No relevant priors. FINDINGS: CHEST Increased interstitial markings at the lung bases suggestive of bibasilar scarring. There is no demonstrated pleural abnormality. There are calcifications of the coronary arteries. Normal mediastinum. Normal hilar regions. Normal unenhanced pulmonary arteries. There is atherosclerotic calcification of the aortic arch. Normal osseous structures. Small hiatal hernia. CT/Limited Chest CT Cardiac Only IMPRESSION: Coronary calcification. Mild degree of bibasilar scarring. Electronically Signed: Miki Mora MD at 14:05 EDT Reading Location ID and State: [address] [place] [address] , Service support , CC: Dr. Anna Hightower MD Brick Baker: Signed Normal [facility] CBC W/Diff, Automatedon 09-0 -2023 Absolute Lymph 2.31 X10 3/uL Normal 0.83-4.51 [facility] Comment on above: Performed By: #### L 100.0100, L500.4050, L506.1000, L500.4100 #### [facility] [address] [place], [address] Absolute Neut 5.0 X10 3/uL Normal 2.0-7.7 [facility] Comment on above: Performed By: #### L 100.0100, L500.4050, L506.1000, L500.4100 #### [facility] [address] [place], [address] Basophils/100 WBC (Bld) 0.6 % Normal 0-1 [facility] Comment on above: Performed By: #### L 100.0100, L500.4050, L506.1000, L500.4100 #### [facility] [address] [place], [address] Eosinophils/100 WBC (Bld) 2.6 % Normal 0-5 [facility] Comment on above: Performed By: #### L 100.0100, L500.4050, L506.1000, L500.4100 #### [facility] [address] [place], [address] Erythrocyte distribution width (RBC) [Ratio] 13.6 % Normal 11.6-14.6 [facility] Comment on above: Performed By: #### L 100.0100, L500.4050, L506.1000, L500.4100 #### [facility] [address] [place], [address] Hematocrit (Bld) [Volume fraction] 41.4 % Normal 37-47 [facility] Comment on above: Performed By: #### L 100.0100, L500.4050, L506.1000, L500.4100 #### [facility] [address] [place], [address] Hemoglobin (Bld) [Mass/Vol] 13.0 g/dL Normal 12.0-15.0 [facility] Comment on above: Performed By: #### L 100.0100, L500.4050, L506.1000, L500.4100 #### [facility] [address] [place], [address] IG% 0.400 Normal 0.0-0.9 [facility] Comment on above: Result Comment: IG% - Immature Granulocytes (promyelocytes, myelocytes and metamyelocytes) > 1% indicates that a LEFT SHIFT is Present. Performed By: #### L 100.0100, L500.4050, L506.1000, L500.4100 #### [facility] [address] [place], [address] Lymphocytes/100 WBC (Bld) 28.2 % Normal 19-41 [facility] Comment on above: Performed By: #### L 100.0100, L500.4050, L506.1000, L500.4100 #### [facility] [address] [place] [place], [address] MCH (RBC) [Entitic mass] 29.0 pg Normal 27.0-32.0 [facility] Comment on above: Performed By: #### L 100.0100, L500.4050, L506.1000, L500.4100 #### [facility] [address] [place], [address] MCHC (RBC) [Mass/Vol] 31.4 g/dL Low 32-36 [facility] Comment on above: Performed By: #### L 100.0100, L500.4050, L506.1000, L500.4100 #### [facility] [address] [place], [address] MCV (RBC) [Entitic vol] 92.2 fL Normal 81-99 [facility] Comment on above: Performed By: #### L 100.0100, L500.4050, L506.1000, L500.4100 #### [facility] [address] [place], [address] Monocytes/100 WBC (Bld) 7.7 % Normal 0-10 [facility] Comment on above: Performed By: #### L 100.0100, L500.4050, L506.1000, L500.4100 #### [facility] [address] [place], [address] Neutrophils/100 WBC (Bld) 60.5 % Normal 47-70 [facility] Comment on above: Performed By: #### L 100.0100, L500.4050, L506.1000, L500.4100 #### [facility] [address] [place], [address] Nucleated RBC (Bld) [#/Vol] 0 10*3/uL Normal 0-5 [facility] Comment on above: Performed By: #### L 100.0100, L500.4050, L506.1000, L500.4100 #### [facility] [address] [place], [address] Platelet mean volume (Bld) [Entitic vol] 10.3 fL Normal 6.2-12.0 [facility] Comment on above: Performed By: #### L 100.0100, L500.4050, L506.1000, L500.4100 #### [facility] [address] [place], [address] Platelets (Bld) [#/Vol] 265 10*3/uL Normal 150-450 [facility] Comment on above: Performed By: #### L 100.0100, L500.4050, L506.1000, L500.4100 #### [facility] [address] [place], [address] RBC (Bld) [#/Vol] 4.49 10*6/uL Normal 4.2-5.4 [facility] Comment on above: Performed By: #### L 100.0100, L500.4050, L506.1000, L500.4100 #### [facility] [address] [place], [address] RDW SD 46.4 fl High 35.1-43.9 [facility] Comment on above: Performed By: #### L 100.0100, L500.4050, L506.1000, L500.4100 #### [facility] [address] [place], [address] WBC (Bld) [#/Vol] 8.2 10*3/uL Normal 4.4-11.0 [facility] Comment on above: Performed By: #### L 100.0100, L500.4050, L506.1000, L500.4100 #### [facility] [address] [place], [address] Comprehensive Metabolic Prof ilon 01-07-2024 Albumin [Mass/Vol] 3.4 g/dL Normal 3.2-5.0 [facility] Comment on above: Performed By: #### L 100.0100, L500.4050, L506.1000, L500.4100 #### [facility] [address] [place] [place], [address] Albumin/Globulin [Mass ratio] 0.8 {ratio} Low 0.9-2.4 [facility] Comment on above: Performed By: #### L 100.0100, L500.4050, L506.1000, L500.4100 #### [facility] [address] [place], [address] ALK P 75 U/L Normal 45-117 [facility] Comment on above: Performed By: #### L 100.0100, L500.4050, L506.1000, L500.4100 #### [facility] [address] [place] [place], [address] ALT [Catalytic activity/Vol] 26 U/L Normal 13-56 [facility] Comment on above: Performed By: #### L 100.0100, L500.4050, L506.1000, L500.4100 #### [facility] [address] [place], [address] AST [Catalytic activity/Vol] 6 U/L Low 15-37 [facility] Comment on above: Performed By: #### L 100.0100, L500.4050, L506.1000, L500.4100 #### [facility] [address] [place], [address] Bilirubin [Mass/Vol] 0.30 mg/dL Normal 0.20-1.00 [facility] Comment on above: Result Comment: For patients on eltrombopag therapy, use of Dimension [place] TBIL is not recommended. Performed By: #### L 100.0100, L500.4050, L506.1000, L500.4100 #### [facility] [address] [place], [address] BUN/CRE 17.4 RATIO Normal 10-20 [facility] Comment on above: Performed By: #### L 100.0100, L500.4050, L506.1000, L500.4100 #### [facility] [address] [place], [address] CA,Total 9.8 mg/dL Normal 8.5-10.1 [facility] Comment on above: Performed By: #### L 100.0100, L500.4050, L506.1000, L500.4100 #### [facility] [address] [place], [address] Chloride [Moles/Vol] 106 mmol/L Normal 98-107 [facility] Comment on above: Performed By: #### L 100.0100, L500.4050, L506.1000, L500.4100 #### [facility] [address] [place], [address] CO2 [Moles/Vol] 29.0 mmol/L Normal 21.0-32.0 [facility] Comment on above: Performed By: #### L 100.0100, L500.4050, L506.1000, L500.4100 #### [facility] [address] [place], [address] Creatinine [Mass/Vol] 0.63 mg/dL Normal 0.55-1.02 [facility] Comment on above: Result Comment: The validity of the calculated GFR GFRAA in patients over 70 years has not been determined. Clinical correlation is essential. Performed By: #### L 100.0100, L500.4050, L506.1000, L500.4100 #### [facility] [address] [place], [address] EST GFR - AA 118 mL/min Normal >60 [facility] Comment on above: Result Comment: Afri can [place] GFR Calc Performed By: #### L 100.0100, L500.4050, L506.1000, L500.4100 #### [facility] [address] [place], [address] GAP 3 Low 5-15 [facility] Comment on above: Performed By: #### L 100.0100, L500.4050, L506.1000, L500.4100 #### [facility] [address] [place], [address] GFR/1.73 sq M.predicted among non-blacks MDRD (S/P/Bld) [Vol rate/Area] 97 mL/min/{1.73_m2} Normal >60 [facility] Comment on above: Result Comment: Non- GFR Calc Performed By: #### L 100.0100, L500.4050, L506.1000, L500.4100 #### [facility] [address] [place], [address] Globulin (S) [Mass/Vol] 4.1 g/dL Normal 2.2-4.2 [facility] Comment on above: Performed By: #### L 100.0100, L500.4050, L506.1000, L500.4100 #### [facility] [address] [place], [address] Glucose [Mass/Vol] 106 mg/dL Normal 74-106 [facility] Comment on above: Result Comment: Fast ing Glucose result from 100 to 125 mg/dL suggests IMPAIRED HOMEOSTASIS per A.D.A. criteria. Performed By: #### L 100.0100, L500.4050, L506.1000, L500.4100 #### [facility] [address] [place], [address] Potassium [Moles/Vol] 4.8 mmol/L Normal 3.5-5.1 [facility] Comment on above: Performed By: #### L 100.0100, L500.4050, L506.1000, L500.4100 #### [facility] [address] [place], [address] Sodium [Moles/Vol] 138 mmol/L Normal 136-145 [facility] Comment on above: Performed By: #### L 100.0100, L500.4050, L506.1000, L500.4100 #### [facility] [address] [place], [address] T PROT 7.5 g/dL Normal 6.4-8.2 [facility] Comment on above: Performed By: #### L 100.0100, L500.4050, L506.1000, L500.4100 #### [facility] [address] [place], [address] Urea nitrogen [Mass/Vol] 11 mg/dL Normal 7-18 [facility] Comment on above: Performed By: #### L 100.0100, L500.4050, L506.1000, L500.4100 #### [facility] [address] [place], [address] Internal Medicine Office Vis kathya 01-07-2024 Internal Medicine Office Visit [facility] [address] [place] [address] OFFICE VISIT Date of Service: 01/07/24 MR#: [id number] Acct: [id number] Name: BELEN NUNEZ Rep #: [id number] : 1950 Provider: Dr. Anna rodríguez MD Age/Sex: 74/F Location: [facility] Status: Signed Intake Vital Signs 07/07/23 08:18 01/07/24 08:34 Height 5 ft 3 in 5 ft 3 in Weight: 182 lb 6 oz BMI 32.3 BP 130/70 H Blood Pressure Location Lt brachial Position Sitting Respiration 16 Pulse 65 Pulse Source Monitor Temp 97.4 F L Temp Source Temporal Pulse Oximetry (%) 97 Oxygen Delivery Method room air Intake Visit Reasons: 6 M FU Chief Complaint: 6m f/u Medical Library Assistant Required: No Accompanied by: Self Is patient in pain?: No Allergies rosuvastatin Allergy (Mild, Verified 01/07/24 08:30) muscle ache simvastatin Allergy (Mild, Verified 01/07/24 08:30) muscle ache Medications ???Medication ???Instructions ???Recorded ???Confirmed ???Type aspirin 81 mg tablet,delayed 81 mg PO DAILY 03/27/21 01/07/24 History release (Adult Low Dose Aspirin) calcium citrate 200 mg (950 mg) 800 mg PO BID 03/27/21 01/07/24 History tablet cholecalciferol (vitamin D3) 10 20 mcg PO BID 03/27/21 01/07/24 History mcg (400 unit) tablet cyanocobalamin (vitamin B-12) 1,500 mcg PO DAILY 03/27/21 01/07/24 History 1,000 mcg capsule ferrous sulfate 325 mg (65 mg 325 mg PO Q OTHER DAY #90 tabs 03/28/21 01/07/24 Rx iron) tablet iron 160 mg-folate 1,700 mcg tab PO 06/26/22 01/07/24 History DFE-B12 60 mcg-vit D-oynkun-uwym tablet (MaxFe (folate)) duloxetine 60 mg capsule,delayed 60 mg PO BID #60 caps 07/07/23 01/07/24 Rx release ezetimibe 10 mg tablet 10 mg PO DAILY #90 tabs 07/07/23 01/07/24 Rx metoprolol succinate 50 mg 50 mg PO DAILY #90 tabs 07/07/23 01/07/24 Rx tablet,extended release 24 hr alendronate 70 mg tablet (Fosamax) 70 mg PO QWEEK #20 tabs 11/27/23 01/07/24 Rx Have you fallen in the past year?: No PFSH Medical History Abnormal urinalysis Anemia Post-menopausal Vaginal odor PMR (polymyalgia rheumatica) Trigger finger of right hand Myalgia Myalgia after COVID-19 vaccination Arthritis Osteoarthritis Chronic pain Cough Callus of foot Generalized anxiety disorder Health care maintenance Hyperlipidemia GERD (gastroesophageal reflux disease) Osteoporosis Hearing difficulty of both ears Surgical History H/O right wrist surgery S/P appendectomy Family History Other Myocardial infarction Social History Smoking Status: Never smoker alcohol intake: current alcohol intake frequency: holidays/special occasions only substance use type: does not use caffeine: Yes what type of physical activity do you participate in: none seatbelt use: always do you feel safe at home: Yes additional social history: HPI HPI Chief Complaint: 6m f/u Details: BELEN NUNEZ, is a 74 F who presents to the office today for follow-up of her chronic medical conditions. History of hyperlipidemia, currently on Zetia and her numbers lately have not been better. In the past, had been on rosuvastatin and simvastatin but discontinued due to muscle aches. History of fibromyalgia which lately has been a lot better controlled on duloxetine. She states that she feels a lot better with that and denies any concerning side effects. Also history of osteoporosis on Fosamax. No recent fracture. Tolerating Fosamax well. Also on calcium and vitamin D supplements. Other chronic medical conditions are stable. ROS Const Constitutional: No body ache, chills, excessive sweating, fatigue, fever(s), frequent falls, headache(s), snoring, weakness or change in appetite Eyes Eyes: No blurry vision, change in vision, eye pain or Light sensitivity ENT ENT: No abnormal hearing, ear or mastoid pain, tinnitus, nasal congestion, headache(s), neck pain or sore throat Resp Respiratory: No cough, shortness of breath, snoring or wheezing Cardio Cardiology: No chest pain at rest, chest pain with exertion, excessive sweating, dyspnea on exertion, lightheadedness, orthopnea or palpitations Gastro GI: No abdominal pain, change in bowel habits, constipation, cramping, diarrhea, nausea/dyspepsia or vomiting Genitourinary-Female: No burning urination, painful urination, urinary incontinence or urinary frequency Musc Musculoskeletal: No abnormal gait, joint pain, back pain, limited range of motion, muscle weakness, neck pain or numbness Skin Skin: No dry skin, redness, lesions, itchy eyes, rash or wounds Neuro Neurology: No a (more content not included)... Normal [facility] Lipid Profileon 01-07-2024 Cholesterol [Mass/Vol] 265 mg/dL High 200 [facility] Comment on above: Result Comment: <200 mg/dL Desirable 200-240 mg/dL Borderline >240 mg/dL High Risk Performed By: #### L 100.0100, L500.4050, L506.1000, L500.4100 #### [facility] [address] [place], [address] Cholesterol in HDL [Mass/Vol] 63 mg/dL Normal [facility] Comment on above: Result Comment: The drugs N-Acetylcysteine and Metamizole may falsely depress this assay. Reference Range HDL <40 mg/dL Low HDL Cholesterol HDL >or= 60 mg/dL High HDL Cholesterol Performed By: #### L 100.0100, L500.4050, L506.1000, L500.4100 #### [facility] [address] [place], [address] Cholesterol in LDL [Mass/Vol] 170 mg/dL High 0-130 [facility] Comment on above: Performed By: #### L 100.0100, L500.4050, L506.1000, L500.4100 #### [facility] [address] [place], [address] Cholesterol in VLDL [Mass/Vol] 32 mg/dL Normal 5-40 [facility] Comment on above: Performed By: #### L 100.0100, L500.4050, L506.1000, L500.4100 #### [facility] [address] [place], [address] Triglyceride [Mass/Vol] 159 mg/dL Normal [facility] Comment on above: Result Comment: The drugs N-Acetylcysteine and Metamizole may falsely depress this assay. Serum Triglycerides Reference Interval Normal <150 mg/dL Borderline high 150 - 199 mg/dL High 200 - 499 mg/dL Very High > or = 500 mg/dL Performed By: #### L 100.0100, L500.4050, L506.1000, L500.4100 #### [facility] [address] [place], [address] Vitamin D,25 Hydroxyon 01-06 Vitamin D 25-OH 17.9 ng/mL Normal [facility] Comment on above: Result Comment: [place] min D 25(OH) Status Range Deficiency <20 ng/mL (50nmol/L) Insufficiency 20 - 30 ng/mL (50 - 75 nmol/L) Sufficiency 30 - 100 ng/mL (75 - 250 nmol/L) Toxicity >100 ng/mL (>250 nmol/L) Performed By: #### L 100.0100, L500.4050, L506.1000, L500.4100 #### [facility] [address] [place], [address] Basophil percentageOrdered B y: Aakashej Washingtonkilo on 07-07-2023 Chloride [Moles/Vol] 106 mmol/L 98-107 [facility] Cholesterol [Mass/Vol] 288 mg/dL <200 [facility] Comment on above: <200 mg/dL Desirable 200-240 mg/dL Borderline >240 mg/dL High Risk Glucose [Mass/Vol] 102 mg/dL 74-106 [facility] Comment on above: Fasting Glucose resu lt from 100 to 125 mg/dL suggests IMPAIRED HOMEOSTASIS per A.D.A. criteria. Potassium [Moles/Vol] 4.3 mmol/L 3.5-5.1 [facility] Sodium [Moles/Vol] 138 mmol/L 136-145 [facility] Triglyceride [Mass/Vol] 228 mg/dL <199 [facility] Comment on above: The drugs N-Acetylcy steine and Metamizole may falsely depress this assay.Serum Triglycerides Reference Interval Normal <150 mg/dL Borderline high 150 - 199 mg/dL High 200 - 499 mg/dL Very High > or = 500 mg/dL Laboratory - Chemistry and C hemistry - challengeOrdered By: Anna Hightower on 07-07-2023 Cholesterol in HDL [Mass/Vol] 56 mg/dL >40 [facility] Comment on above: The drugs N-Acetylcy steine and Metamizole may falsely depress this assay. Reference Range HDL <40 mg/dL Low HDL Cholesterol HDL >or= 60 mg/dL High HDL Cholesterol Cholesterol in LDL [Mass/Vol] 186 mg/dL 0-130 [facility] CO2 [Moles/Vol] 28.0 mmol/L 21.0-32.0 [facility] Urea nitrogen/Creatinine [Mass ratio] 20.4 mg/mg 10-20 [facility] No Panel InformationOrdered By: Anna Hightower on 07-07-2023 Estimated GFR (MDRD) Amer 99 mL/min >60 [facility] Comment on above: GFR Calc Estimated GFR (MDRD) Non-Af Amer 82 mL/min >60 [facility] Comment on above: Non- GFR Calc Vitamin D 25-Hydroxy 27.3 ng/mL [facility] Comment on above: Vitamin D 25(OH) Sta tus Range Deficiency <20 ng/mL (50nmol/L) Insufficiency 20 - 30 ng/mL (50 - 75 nmol/L) Sufficiency 30 - 100 ng/mL (75 - 250 nmol/L) Toxicity >100 ng/mL (>250 nmol/L) VLDL Cholesterol 46 mg/dL 5-40 [facility] Serum or plasma calcium carmen urement (mass/volume)Ordered By: Anna Hightower on 07-07-2023 Calcium [Mass/Vol] 9.9 mg/dL 8.5-10.1 [facility] Serum or plasma creatinine m easurement (mass/volume)Ordered By: Anna Hightower on 07-07-2023 Creatinine [Mass/Vol] 0.74 mg/dL 0.55-1.02 [facility] Comment on above: The validity of the calculated GFR & GFRAA in patients over 70 years has not been determined. Clinical correlation is essential. Serum or plasma urea nitroge n measurement (mass/volume)Ordered By: Anna Hightower on 07-07-2023 Urea nitrogen [Mass/Vol] 15 mg/dL 7-18 [facility] Thin prep Papanicolaou smear with manual screeningOrdered By: Anna Hightower on 07-07-2023 Thin prep Papanicolaou smear with manual screening 4 5-15 [facility] Gram stain for investigation of transfusion reactionOrdered By: Odalis Novak on 03-05-2023 Microscopic observation Gram stain Nom (Unsp spec) [facility] Thin prep Papanicolaou smear with manual screeningOrdered By: Odalis Novak on 03-05-2023 Genital Culture Actinomyces naeslundii [facility] Culture, urineOrdered By: Jewel Hightower on 2023 Bacteria identified Cx Nom (U) Mixed Gram Pos & Gram Neg Org [facility] Basophil percentageOrdered B y: Anna Hightower on 01-01-2023 Basophil percentage 10-25 SEEN /hpf 0-5 [facility] Bilirubin Test strip Ql (U)O rdered By: Anna Hightower on 01-01-2023 Bilirubin Ql (U) Negative Negative [facility] Culture, urineOrdered By: Jewel Hightower on 01-01-2023 Bacteria identified Cx Nom (U) Mixed Gram Pos & Gram Neg Org [facility] Bacteria identified Cx Nom (U) Mixed Gram Pos & Gram Neg Org [facility] Iron measurement (mass/mass) Ordered By: Anna Hightower on 01-01-2023 Iron (Unsp spec) [Mass/Mass] 28 ug/dL 50-170 [facility] Ketones Test strip Ql (U)Ord ered By: Anna Hightower on 01-01-2023 Ketones Ql (U) Negative Negative [facility] Mucus LM Ql (Urine sed)Order ed By: Anna Hightower on 01-01-2023 Mucus Ql (Urine sed) 0 SEEN /hpf [facility] Nitrite Test strip Ql (U)Ord ered By: Anna Hightower on 01-01-2023 Nitrite Ql (U) Negative Negative [facility] No Panel InformationOrdered By: Anna Hightower on 01-01-2023 Total Iron Binding Capacity 340 ug/dL 250-450 [facility] Urine Transitional Epithelial Cells 0-5 SEEN /hpf 0-5 [facility] Vitamin D 25-Hydroxy 28.2 ng/mL [facility] Comment on above: Vitamin D 25(OH) Sta tus Range Deficiency <20 ng/mL (50nmol/L) Insufficiency 20 - 30 ng/mL (50 - 75 nmol/L) Sufficiency 30 - 100 ng/mL (75 - 250 nmol/L) Toxicity >100 ng/mL (>250 nmol/L) Protein Test strip Ql (U)Ord ered By: Anna Hightower on 01-01-2023 Protein Ql (U) Negative Negative [facility] Serum or plasma ferritin sukh surement (mass/volume)Ordered By: Anna Hightower on 01-01-2023 Ferritin [Mass/Vol] 14 ng/mL 8-252 [facility] Squamous epithelial cells de tection in urine sediment by light microscopyOrdered By: Anna Hightower on 01-01-2023 Epithelial cells.squamous LM Ql (Urine sed) 5-10 SEEN /hpf 5-10 [facility] Urine blood detectionOrdered By: Anna Hightower on 01-01-2023 RBC Ql (U) Negative Negative [facility] RBC Ql (U) 0 SEEN /hpf 0-5 [facility] Urine clarityOrdered By: Jc Hightower on 01-01-2023 Clarity (U) Sl. Cloudy Clear [facility] Urine color determinationOrd ered By: Anna Hightower on 01-01-2023 Color (U) Yellow Yellow [facility] Urine glucose detectionOrder ed By: Anna Hightower on 01-01-2023 Glucose Ql (U) Normal mg/dl Normal [facility] Urine leukocyte esterase det ection by dipstickOrdered By: Anna Hightower on 01-01-2023 Leukocyte esterase Test strip Ql (U) 500 /ul Negative [facility] Urine pHOrdered By: Candice Hightower on 01-01-2023 pH (U) 8.0 [pH] 5.0 - 8.0 [facility] Urine sediment bacteria coun t by microscopy (number/high power field)Ordered By: Anna Hightower on 01-01-2023 Bacteria LM.HPF (Urine sed) [#/Area] 1 /[HPF] None Seen [facility] Urine specific gravity measu rementOrdered By: Aakashpeasehodan Hightower on 01-01-2023 Specific gravity (U) [Rel density] 1.015 1.002-1.030 [facility] Urobilinogen Auto test strip Ql (U)Ordered By: Anna Hightower on 01-01-2023 Urobilinogen Ql (U) Normal mg/dl Normal [facility] Absolute lymphocyte countOrd ered By: Valerie Alfredo on 12-17-2022 Lymphocytes Auto (Unsp spec) [#/Vol] 2.69 10*3/uL 0.83-4.51 [facility] Basophil percentageOrdered B y: Valerie Alfredo on 12-17-2022 Basophils/100 WBC (Bld) 0.6 % 0-1 [facility] Bilirubin [Mass/Vol] 0.30 mg/dL 0.20-1.00 [facility] Comment on above: For patients on eltr ombopag therapy, use of Dimension [place] TBIL is not recommended. Chloride [Moles/Vol] 105 mmol/L 98-107 [facility] Eosinophils/100 WBC (Bld) 1.4 % 0-5 [facility] Glucose [Mass/Vol] 93 mg/dL 74-106 [facility] Neutrophils (Bld) [#/Vol] 5.3 10*3/uL 2.0-7.7 [facility] Neutrophils/100 WBC (Bld) 60.7 % 47-70 [facility] Potassium [Moles/Vol] 4.3 mmol/L 3.5-5.1 [facility] Protein [Mass/Vol] 7.5 g/dL 6.4-8.2 [facility] Sodium [Moles/Vol] 138 mmol/L 136-145 [facility] WBC (Bld) [#/Vol] 8.7 10*3/uL 4.4-11.0 [facility] Blood erythrocytes count (nu mber/volume)Ordered By: Valerie Alfredo on 12-17-2022 RBC (Bld) [#/Vol] 4.08 10*6/uL 4.2-5.4 [facility] Blood hemoglobin measurement (mass/volume)Ordered By: Valerie Alfredo on 12-17-2022 Hemoglobin (Bld) [Mass/Vol] 11.5 g/dL 12.0-15.0 [facility] Blood lymphocytes/100 leukoc ytesOrdered By: Valerie Alfredo on 12-17-2022 Lymphocytes/100 WBC (Bld) 30.8 % 19-41 [facility] Blood monocytes/100 leukocyt esOrdered By: Valerie Alfredo on 12-17-2022 Monocytes/100 WBC (Bld) 6.2 % 0-10 [facility] Blood platelet mean volumeOr dered By: Valerie Alfredo on 12-17-2022 Platelet mean volume (Bld) [Entitic vol] 10.4 fL 6.2-12.0 [facility] Determination of erythrocyte mean corpuscular volume (MCV)Ordered By: Valerie Alfredo on 12-17-2022 MCV (RBC) [Entitic vol] 92.9 fL 81-99 [facility] Hematocrit Auto (Bld) [Volum e fraction]Ordered By: Valerie Alfredo on 12-17-2022 Hematocrit (Bld) [Volume fraction] 37.9 % 37-47 [facility] - Chemistry and C hemistry - challengeOrdered By: Valerie Alfredo on 12-17-2022 ALP [Catalytic activity/Vol] 71 U/L 45-117 [facility] ALT [Catalytic activity/Vol] 22 U/L 13-56 [facility] CO2 [Moles/Vol] 28.0 mmol/L 21.0-32.0 [facility] Globulin (S) [Mass/Vol] 4.1 g/dL 2.2-4.2 [facility] Urea nitrogen/Creatinine [Mass ratio] 19.4 mg/mg 10-20 [facility] - Hematology and Cell countsOrdered By: Valerie Alfredo on 12-17-2022 Erythrocyte distribution width (RBC) [Entitic vol] 51.5 fL 35.1-43.9 [facility] Erythrocyte distribution width (RBC) [Ratio] 15.2 % 11.6-14.6 [facility] Immature granulocytes/100 WBC (Bld) 0.300 % 0.0-0.9 [facility] Comment on above: IG% - Immature Granu locytes (promyelocytes, myelocytes and metamyelocytes) > 1% indicates that a LEFT SHIFT is Present. MCH (RBC) [Entitic mass] 28.2 pg 27.0-32.0 [facility] Nucleated RBC/100 WBC (Bld) [Ratio] 0 % 0-5 [facility] MCHC Auto (RBC) [Mass/Vol]Or dered By: Valerie Alfredo on 12-17-2022 MCHC (RBC) [Mass/Vol] 30.3 g/dL 32-36 [facility] No Panel InformationOrdered By: Valerie Alfredo on 12-17-2022 Estimated GFR (MDRD) Amer 134 mL/min >60 [facility] Comment on above: GFR Calc Estimated GFR (MDRD) Non-Af Amer 111 mL/min >60 [facility] Comment on above: Non- GFR Calc Platelets bldOrdered By: Demetrio Alfredo on 12-17-2022 Platelets (Bld) [#/Vol] 296 10*3/uL 150-450 [facility] Serum or plasma albumin carmen urement (mass/volume)Ordered By: Valerie Alfredo on 12-17-2022 Albumin [Mass/Vol] 3.4 g/dL 3.2-5.0 [facility] Serum or plasma albumin/glob ulin mass ratioOrdered By: Valerie Alfredo on 12-17-2022 Albumin/Globulin [Mass ratio] 0.8 {ratio} 0.9-2.4 [facility] Serum or plasma calcium carmen urement (mass/volume)Ordered By: Valerie Alfredo on 12-17-2022 Calcium [Mass/Vol] 9.9 mg/dL 8.5-10.1 [facility] Serum or plasma creatinine m easurement (mass/volume)Ordered By: Valerie Alfredo on 12-17-2022 Creatinine [Mass/Vol] 0.57 mg/dL 0.55-1.02 [facility] Comment on above: The validity of the calculated GFR & GFRAA in patients over 70 years has not been determined. Clinical correlation is essential. Serum or plasma urea nitroge n measurement (mass/volume)Ordered By: Valerie Alfredo on 12-17-2022 Urea nitrogen [Mass/Vol] 11 mg/dL 7-18 [facility] Thin prep Papanicolaou smear with manual screeningOrdered By: Valerie Alfredo on 12-17-2022 Thin prep Papanicolaou smear with manual screening 7 U/L 15-37 [facility] Thin prep Papanicolaou smear with manual screening 5 5-15 [facility] Absolute lymphocyte countOrd ered By: Dr. Alfredo on 10-15-2022 Lymphocytes Auto (Unsp spec) [#/Vol] 2.76 10*3/uL 0.83-4.51 [facility] Basophil percentageOrdered B y: Dr. Alfredo on 10-15-2022 Basophils/100 WBC (Bld) 0.5 % 0-1 [facility] Bilirubin [Mass/Vol] 0.30 mg/dL 0.20-1.00 [facility] Comment on above: For patients on eltr ombopag therapy, use of Dimension [place] TBIL is not recommended. Chloride [Moles/Vol] 108 mmol/L 98-107 [facility] Eosinophils/100 WBC (Bld) 1.9 % 0-5 [facility] Glucose [Mass/Vol] 107 mg/dL 74-106 [facility] Comment on above: Fasting Glucose resu lt from 100 to 125 mg/dL suggests IMPAIRED HOMEOSTASIS per A.D.A. criteria. Neutrophils (Bld) [#/Vol] 6.0 10*3/uL 2.0-7.7 [facility] Neutrophils/100 WBC (Bld) 62.8 % 47-70 [facility] Potassium [Moles/Vol] 4.2 mmol/L 3.5-5.1 [facility] Protein [Mass/Vol] 7.5 g/dL 6.4-8.2 [facility] Sodium [Moles/Vol] 141 mmol/L 136-145 [facility] WBC (Bld) [#/Vol] 9.5 10*3/uL 4.4-11.0 [facility] Blood erythrocytes count (nu mber/volume)Ordered By: Dr. Alfredo on 10-15-2022 RBC (Bld) [#/Vol] 4.24 10*6/uL 4.2-5.4 [facility] Blood hemoglobin measurement (mass/volume)Ordered By: Dr. Alfredo on 10-15-2022 Hemoglobin (Bld) [Mass/Vol] 12.5 g/dL 12.0-15.0 [facility] Blood lymphocytes/100 leukoc ytesOrdered By: Dr. Alfredo on 10-15-2022 Lymphocytes/100 WBC (Bld) 28.9 % 19-41 [facility] Blood monocytes/100 leukocyt esOrdered By: Dr. Alfredo on 10-15-2022 Monocytes/100 WBC (Bld) 5.6 % 0-10 [facility] Blood platelet mean volumeOr dered By: Dr. Alfredo on 10-15-2022 Platelet mean volume (Bld) [Entitic vol] 10.3 fL 6.2-12.0 [facility] Determination of erythrocyte mean corpuscular volume (MCV)Ordered By: Dr. Alfredo on 10-15-2022 MCV (RBC) [Entitic vol] 94.3 fL 81-99 [facility] Hematocrit Auto (Bld) [Volum e fraction]Ordered By: Dr. Alfredo on 10-15-2022 Hematocrit (Bld) [Volume fraction] 40.0 % 37-47 [facility] - Chemistry and C hemistry - challengeOrdered By: Dr. Alfredo on 10-15-2022 ALP [Catalytic activity/Vol] 80 U/L 45-117 [facility] ALT [Catalytic activity/Vol] 24 U/L 13-56 [facility] CO2 [Moles/Vol] 26.0 mmol/L 21.0-32.0 [facility] Globulin (S) [Mass/Vol] 4.1 g/dL 2.2-4.2 [facility] Urea nitrogen/Creatinine [Mass ratio] 15.6 mg/mg 10-20 [facility] - Hematology and Cell countsOrdered By: Dr. Alfredo on 10-15-2022 Erythrocyte distribution width (RBC) [Entitic vol] 46.2 fL 35.1-43.9 [facility] Erythrocyte distribution width (RBC) [Ratio] 13.6 % 11.6-14.6 [facility] Immature granulocytes/100 WBC (Bld) 0.300 % 0.0-0.9 [facility] Comment on above: IG% - Immature Granu locytes (promyelocytes, myelocytes and metamyelocytes) > 1% indicates that a LEFT SHIFT is Present. MCH (RBC) [Entitic mass] 29.5 pg 27.0-32.0 [facility] Nucleated RBC/100 WBC (Bld) [Ratio] 0 % 0-5 [facility] MCHC Auto (RBC) [Mass/Vol]Or dered By: Dr. Alfredo on 10-15-2022 MCHC (RBC) [Mass/Vol] 31.3 g/dL 32-36 [facility] No Panel InformationOrdered By: Dr. Alfredo on 10-15-2022 Estimated GFR (MDRD) Amer 105 mL/min >60 [facility] Comment on above: GFR Calc Estimated GFR (MDRD) Non-Af Amer 87 mL/min >60 [facility] Comment on above: Non- GFR Calc Platelets bldOrdered By: Dr. Alfredo on 10-15-2022 Platelets (Bld) [#/Vol] 306 10*3/uL 150-450 [facility] Serum or plasma albumin carmen urement (mass/volume)Ordered By: Dr. Alfredo on 10-15-2022 Albumin [Mass/Vol] 3.4 g/dL 3.2-5.0 [facility] Serum or plasma albumin/glob ulin mass ratioOrdered By: Dr. Alfredo on 10-15-2022 Albumin/Globulin [Mass ratio] 0.8 {ratio} 0.9-2.4 [facility] Serum or plasma calcium carmen urement (mass/volume)Ordered By: Dr. Alfredo on 10-15-2022 Calcium [Mass/Vol] 9.5 mg/dL 8.5-10.1 [facility] Serum or plasma creatinine m easurement (mass/volume)Ordered By: Dr. Alfredo on 10-15-2022 Creatinine [Mass/Vol] 0.70 mg/dL 0.55-1.02 [facility] Comment on above: The validity of the calculated GFR & GFRAA in patients over 70 years has not been determined. Clinical correlation is essential. Serum or plasma urea nitroge n measurement (mass/volume)Ordered By: Dr. Alfredo on 10-15-2022 Urea nitrogen [Mass/Vol] 11 mg/dL 7-18 [facility] Thin prep Papanicolaou smear with manual screeningOrdered By: Dr. Alfredo on 10-15-2022 Thin prep Papanicolaou smear with manual screening 9 U/L 15-37 [facility] Thin prep Papanicolaou smear with manual screening 7 5-15 [facility] Absolute lymphocyte countOrd ered By: Dr. Alfredo on 08-15-2022 Lymphocytes Auto (Unsp spec) [#/Vol] 2.60 10*3/uL 0.83-4.51 [facility] Basophil percentageOrdered B y: Dr. Alfredo on 08-15-2022 Basophils/100 WBC (Bld) 0.6 % 0-1 [facility] Bilirubin [Mass/Vol] 0.20 mg/dL 0.20-1.00 [facility] Comment on above: For patients on eltr ombopag therapy, use of Dimension [place] TBIL is not recommended. Chloride [Moles/Vol] 107 mmol/L 98-107 [facility] Eosinophils/100 WBC (Bld) 2.1 % 0-5 [facility] Glucose [Mass/Vol] 97 mg/dL 74-106 [facility] Neutrophils (Bld) [#/Vol] 4.6 10*3/uL 2.0-7.7 [facility] Neutrophils/100 WBC (Bld) 56.9 % 47-70 [facility] Potassium [Moles/Vol] 4.2 mmol/L 3.5-5.1 [facility] Protein [Mass/Vol] 7.4 g/dL 6.4-8.2 [facility] Sodium [Moles/Vol] 136 mmol/L 136-145 [facility] WBC (Bld) [#/Vol] 8.1 10*3/uL 4.4-11.0 [facility] Blood erythrocytes count (nu mber/volume)Ordered By: Dr. Alfredo on 08-15-2022 RBC (Bld) [#/Vol] 4.29 10*6/uL 4.2-5.4 [facility] Blood hemoglobin measurement (mass/volume)Ordered By: Dr. Alfredo on 08-15-2022 Hemoglobin (Bld) [Mass/Vol] 13.0 g/dL 12.0-15.0 [facility] Blood lymphocytes/100 leukoc ytesOrdered By: Dr. Alfredo on 08-15-2022 Lymphocytes/100 WBC (Bld) 32.0 % 19-41 [facility] Blood monocytes/100 leukocyt esOrdered By: Dr. Alfredo on 08-15-2022 Monocytes/100 WBC (Bld) 8.2 % 0-10 [facility] Blood platelet mean volumeOr dered By: Dr. Alfredo on 08-15-2022 Platelet mean volume (Bld) [Entitic vol] 10.0 fL 6.2-12.0 [facility] Determination of erythrocyte mean corpuscular volume (MCV)Ordered By: Dr. Alfredo on 08-15-2022 MCV (RBC) [Entitic vol] 94.9 fL 81-99 [facility] Hematocrit Auto (Bld) [Volum e fraction]Ordered By: Dr. Alfredo on 08-15-2022 Hematocrit (Bld) [Volume fraction] 40.7 % 37-47 [facility] - Chemistry and C hemistry - challengeOrdered By: Dr. Alfredo on 08-15-2022 ALP [Catalytic activity/Vol] 63 U/L 45-117 [facility] ALT [Catalytic activity/Vol] 29 U/L 13-56 [facility] CO2 [Moles/Vol] 25.0 mmol/L 21.0-32.0 [facility] Globulin (S) [Mass/Vol] 3.9 g/dL 2.2-4.2 [facility] Urea nitrogen/Creatinine [Mass ratio] 17.1 mg/mg 10-20 [facility] - Hematology and Cell countsOrdered By: Dr. Alfredo on 08-15-2022 Erythrocyte distribution width (RBC) [Entitic vol] 49.4 fL 35.1-43.9 [facility] Erythrocyte distribution width (RBC) [Ratio] 14.5 % 11.6-14.6 [facility] Immature granulocytes/100 WBC (Bld) 0.200 % 0.0-0.9 [facility] Comment on above: IG% - Immature Granu locytes (promyelocytes, myelocytes and metamyelocytes) > 1% indicates that a LEFT SHIFT is Present. MCH (RBC) [Entitic mass] 30.3 pg 27.0-32.0 [facility] Nucleated RBC/100 WBC (Bld) [Ratio] 0 % 0-5 [facility] MCHC Auto (RBC) [Mass/Vol]Or dered By: Dr. Alfredo on 08-15-2022 MCHC (RBC) [Mass/Vol] 31.9 g/dL 32-36 [facility] No Panel InformationOrdered By: Dr. Alfredo on 08-15-2022 Estimated GFR (MDRD) Amer 96 mL/min >60 [facility] Comment on above: GFR Calc Estimated GFR (MDRD) Non-Af Amer 79 mL/min >60 [facility] Comment on above: Non- GFR Calc Platelets bldOrdered By: Dr. Alfredo on 08-15-2022 Platelets (Bld) [#/Vol] 290 10*3/uL 150-450 [facility] Serum or plasma albumin carmen urement (mass/volume)Ordered By: Dr. Alfredo on 08-15-2022 Albumin [Mass/Vol] 3.5 g/dL 3.2-5.0 [facility] Serum or plasma albumin/glob ulin mass ratioOrdered By: Dr. Alfredo on 08-15-2022 Albumin/Globulin [Mass ratio] 0.9 {ratio} 0.9-2.4 [facility] Serum or plasma calcium carmen urement (mass/volume)Ordered By: Dr. Alfredo on 08-15-2022 Calcium [Mass/Vol] 9.2 mg/dL 8.5-10.1 [facility] Serum or plasma creatinine m easurement (mass/volume)Ordered By: Dr. Alfredo on 08-15-2022 Creatinine [Mass/Vol] 0.76 mg/dL 0.55-1.02 [facility] Comment on above: The validity of the calculated GFR & GFRAA in patients over 70 years has not been determined. Clinical correlation is essential. Serum or plasma urea nitroge n measurement (mass/volume)Ordered By: Dr. Alfredo on 08-15-2022 Urea nitrogen [Mass/Vol] 13 mg/dL 7-18 [facility] Thin prep Papanicolaou smear with manual screeningOrdered By: Dr. Alfredo on 08-15-2022 Thin prep Papanicolaou smear with manual screening 6 U/L 15-37 [facility] Thin prep Papanicolaou smear with manual screening 4 5-15 [facility] Basophil percentageOrdered B y: Dr. Hightower on 06-26-2022 Cholesterol [Mass/Vol] 252 mg/dL <200 [facility] Comment on above: <200 mg/dL Desirable 200-240 mg/dL Borderline >240 mg/dL High Risk Triglyceride [Mass/Vol] 177 mg/dL <199 [facility] Comment on above: The drugs N-Acetylcy steine and Metamizole may falsely depress this assay.Serum Triglycerides Reference Interval Normal <150 mg/dL Borderline high 150 - 199 mg/dL High 200 - 499 mg/dL Very High > or = 500 mg/dL No Panel InformationOrdered By: Dr. Hightower on 06-26-2022 Vitamin D 25-Hydroxy 22.3 ng/mL [facility] Comment on above: Vitamin D 25(OH) Sta tus Range Deficiency <20 ng/mL (50nmol/L) Insufficiency 20 - 30 ng/mL (50 - 75 nmol/L) Sufficiency 30 - 100 ng/mL (75 - 250 nmol/L) Toxicity >100 ng/mL (>250 nmol/L) Serum or plasma cholesterol in HDL measurement (mass/volume)Ordered By: Dr. Hightower on 06-26-2022 Cholesterol in HDL [Mass/Vol] 62 mg/dL >40 [facility] Comment on above: The drugs N-Acetylcy steine and Metamizole may falsely depress this assay. Reference Range HDL <40 mg/dL Low HDL Cholesterol HDL >or= 60 mg/dL High HDL Cholesterol Serum or plasma cholesterol in VLDL measurement (mass/volume)Ordered By: Dr. Hightower on 06-26-2022 Cholesterol in VLDL [Mass/Vol] 35 mg/dL 5-40 [facility] Serum or plasma low density lipoprotein (LDL) cholesterol measurement (mass/volume)Ordered By: Dr. Hightower on 06-26-2022 Cholesterol in LDL [Mass/Vol] 155 mg/dL 0-130 [facility] Absolute lymphocyte countOrd ered By: Dr. Alfredo on 05-28-2022 Lymphocytes Auto (Unsp spec) [#/Vol] 2.41 10*3/uL 0.83-4.51 [facility] Basophil percentageOrdered B y: Dr. Alfredo on 05-28-2022 Basophils/100 WBC (Bld) 0.5 % 0-1 [facility] Bilirubin [Mass/Vol] 0.50 mg/dL 0.20-1.00 [facility] Comment on above: For patients on eltr ombopag therapy, use of Dimension [place] TBIL is not recommended. Chloride [Moles/Vol] 104 mmol/L 98-107 [facility] Eosinophils/100 WBC (Bld) 2.5 % 0-5 [facility] Glucose [Mass/Vol] 96 mg/dL 74-106 [facility] Neutrophils (Bld) [#/Vol] 5.1 10*3/uL 2.0-7.7 [facility] Neutrophils/100 WBC (Bld) 61.1 % 47-70 [facility] Potassium [Moles/Vol] 4.3 mmol/L 3.5-5.1 [facility] Protein [Mass/Vol] 7.9 g/dL 6.4-8.2 [facility] Sodium [Moles/Vol] 139 mmol/L 136-145 [facility] WBC (Bld) [#/Vol] 8.4 10*3/uL 4.4-11.0 [facility] Blood erythrocytes count (nu mber/volume)Ordered By: Dr. Alfredo on 05-28-2022 RBC (Bld) [#/Vol] 4.68 10*6/uL 4.2-5.4 [facility] Blood hemoglobin measurement (mass/volume)Ordered By: Dr. Alfredo on 05-28-2022 Hemoglobin (Bld) [Mass/Vol] 13.8 g/dL 12.0-15.0 [facility] Blood lymphocytes/100 leukoc ytesOrdered By: Dr. Alfredo on 05-28-2022 Lymphocytes/100 WBC (Bld) 28.9 % 19-41 [facility] Blood monocytes/100 leukocyt esOrdered By: Dr. Alfredo on 05-28-2022 Monocytes/100 WBC (Bld) 6.6 % 0-10 [facility] Blood platelet mean volumeOr dered By: Dr. Alfredo on 05-28-2022 Platelet mean volume (Bld) [Entitic vol] 10.3 fL 6.2-12.0 [facility] Determination of erythrocyte mean corpuscular volume (MCV)Ordered By: Dr. Alfredo on 05-28-2022 MCV (RBC) [Entitic vol] 91.5 fL 81-99 [facility] Erythrocyte sedimentation ra teOrdered By: Dr. Alfredo on 05-28-2022 ESR (Bld) [Velocity] 22 mm/h 0-30 [facility] Hematocrit Auto (Bld) [Volum e fraction]Ordered By: Dr. Alfredo on 05-28-2022 Hematocrit (Bld) [Volume fraction] 42.8 % 37-47 [facility] - Chemistry and C hemistry - challengeOrdered By: Dr. Alfredo on 05-28-2022 ALP [Catalytic activity/Vol] 69 U/L 45-117 [facility] ALT [Catalytic activity/Vol] 28 U/L 13-56 [facility] CO2 [Moles/Vol] 27.0 mmol/L 21.0-32.0 [facility] Globulin (S) [Mass/Vol] 4.2 g/dL 2.2-4.2 [facility] Urea nitrogen/Creatinine [Mass ratio] 20.9 mg/mg 10-20 [facility] - Hematology and Cell countsOrdered By: Dr. Alfredo on 05-28-2022 Erythrocyte distribution width (RBC) [Entitic vol] 43.5 fL 35.1-43.9 [facility] Erythrocyte distribution width (RBC) [Ratio] 12.9 % 11.6-14.6 [facility] Immature granulocytes/100 WBC (Bld) 0.400 % 0.0-0.9 [facility] Comment on above: IG% - Immature Granu locytes (promyelocytes, myelocytes and metamyelocytes) > 1% indicates that a LEFT SHIFT is Present. MCH (RBC) [Entitic mass] 29.5 pg 27.0-32.0 [facility] Nucleated RBC/100 WBC (Bld) [Ratio] 0 % 0-5 [facility] MCHC Auto (RBC) [Mass/Vol]Or dered By: Dr. Alfredo on 05-28-2022 MCHC (RBC) [Mass/Vol] 32.2 g/dL 32-36 [facility] No Panel InformationOrdered By: Dr. Alfredo on 05-28-2022 Estimated GFR (MDRD) Amer 121 mL/min >60 [facility] Comment on above: GFR Calc Estimated GFR (MDRD) Non-Af Amer 100 mL/min >60 [facility] Comment on above: Non- GFR Calc Hepatitis B Surface Antigen Non-Reactive Nonreactive [facility] Hepatitis C Antibody Non-Reactive Nonreactive [facility] Comment on above: Non Reactive: < 0.8 Equivocal: >/= 0.8 to < 1.0 Reactive: >/= 1.0The CDC recommends that a reactive/equivocal HCV antibody result be followed up by the HCV Nucleic Acid Amplificationtest (647511) Platelets bldOrdered By: Dr. Alfredo on 05-28-2022 Platelets (Bld) [#/Vol] 242 10*3/uL 150-450 [facility] Serum cyclic citrullinated p eptide IgG antibody assay (units/volume)Ordered By: Dr. Alfredo on 05-28-2022 Cyclic citrullinated peptide IgG Qn 1 units 0-19 [facility] Comment on above: Negative <20 Weak po sitive 20 - 39 Moderate positive 40 - 59 Strong positive >59Performed at: - [facility] [id number] Director: Brian Box PhD, Phone: [phone] Serum hepatitis B virus surf dalia antibody IgG detectionOrdered By: Dr. Alfredo on 05-28-2022 HBV surface IgG Ql (S) Non-Reactive [facility] Comment on above: Non Reactive: Incons istent with immunity less than <10 mIU/mL Reactive: Consistent with immunity greater than or equal to 10 mIU/mL Serum or plasma C reactive p rotein measurement (mass/volume)Ordered By: Dr. Alfredo on 05-28-2022 CRP [Mass/Vol] mg/L 0.0-3.0 [facility] Comment on above: C-Reactive Protein ( CRP) provides useful information for thediagnosis, therapy and monitoring of inflammatory processesand associated diseases. For the evaluation of Relative Riskfor Cardiovascular Disease, a High Sensitivity CRP (HSCRP)should be ordered. Serum or plasma albumin carmen urement (mass/volume)Ordered By: Dr. Alfredo on 05-28-2022 Albumin [Mass/Vol] 3.7 g/dL 3.2-5.0 [facility] Serum or plasma albumin/glob ulin mass ratioOrdered By: Dr. Alfredo on 05-28-2022 Albumin/Globulin [Mass ratio] 0.9 {ratio} 0.9-2.4 [facility] Serum or plasma calcium carmen urement (mass/volume)Ordered By: Dr. Alfredo on 05-28-2022 Calcium [Mass/Vol] 10.0 mg/dL 8.5-10.1 [facility] Serum or plasma creatinine m easurement (mass/volume)Ordered By: Dr. Alfredo on 05-28-2022 Creatinine [Mass/Vol] 0.62 mg/dL 0.55-1.02 [facility] Comment on above: The validity of the calculated GFR & GFRAA in patients over 70 years has not been determined. Clinical correlation is essential. Serum or plasma urea nitroge n measurement (mass/volume)Ordered By: Dr. Alfredo on 05-28-2022 Urea nitrogen [Mass/Vol] 13 mg/dL 7-18 [facility] Serum rheumatoid factor dete ctionOrdered By: Dr. Alfredo on 05-28-2022 Rheumatoid factor Ql (S) < 10.0 IU/mL <15 [facility] Thin prep Papanicolaou smear with manual screeningOrdered By: Dr. Alfredo on 05-28-2022 Thin prep Papanicolaou smear with manual screening 8 U/L 15-37 [facility] Thin prep Papanicolaou smear with manual screening 8 5-15 [facility] Basophil percentageOrdered B y: Dr. Hightower on 03-22-2022 Basophil percentage Not Reportable [facility] Erythrocyte sedimentation ra teOrdered By: Dr. Hightower on 03-22-2022 ESR (Bld) [Velocity] 51 mm/h 0-30 [facility] No Panel InformationOrdered By: Dr. Hightower on 03-22-2022 Anti-Nuclear Antibody Screen Negative Negative [facility] Comment on above: Performed at: [place] [id number] Director: Brian Box PhD, Phone: [phone] [employer] Antibody Not Reportable [facility] OB/GYN DOCTOR Antibody Not Reportable [facility] Serum DNA double strand anti body assay (units/volume)Ordered By: Dr. Hightower on 03-22-2022 DNA double strand Ab Qn (S) Not Reportable [facility] Serum Lin-1 antibody assay (u nits/volume)Ordered By: Dr. Hightower on 03-22-2022 Lin-1 extractable nuclear Ab Qn (S) Not Reportable [facility] Serum Scl-70 extractable nuc lear antibody assay (units/volume)Ordered By: Dr. Hightower on 03-22-2022 SCL-70 extractable nuclear Ab Qn (S) Not Reportable [facility] Serum Wren extractable nucl ear antibody detectionOrdered By: Dr. Hightower on 03-22-2022 Wren extractable nuclear Ab Ql (S) Not Reportable [facility] Serum or plasma C reactive p rotein measurement (mass/volume)Ordered By: Dr. Hightower on 03-22-2022 CRP [Mass/Vol] mg/L 0.0-3.0 [facility] Comment on above: C-Reactive Protein ( CRP) provides useful information for thediagnosis, therapy and monitoring of inflammatory processesand associated diseases. For the evaluation of Relative Riskfor Cardiovascular Disease, a High Sensitivity CRP (HSCRP)should be ordered. Serum rheumatoid factor dete ctionOrdered By: Dr. Hightower on 03-22-2022 Rheumatoid factor Ql (S) < 10.0 IU/mL <15 [facility] Absolute lymphocyte counton 07-24-2021 Lymphocytes Auto (Unsp spec) [#/Vol] 2.26 10*3/uL 0.83-4.51 [facility] Work Phone: Basophil percentageon 2021 Basophils/100 WBC (Bld) 0.7 % 0-1 [facility] Work Phone: Bilirubin [Mass/Vol] 0.40 mg/dL 0.20-1.00 [facility] Work Phone: Comment on above: For patients on eltr ombopag therapy, use of Dimension [place] TBIL is not recommended. Chloride [Moles/Vol] 106 mmol/L 98-107 [facility] Work Phone: Cholesterol [Mass/Vol] 257 mg/dL <200 [facility] Work Phone: Comment on above: <200 mg/dL Desirable 200-240 mg/dL Borderline >240 mg/dL High Risk Eosinophils/100 WBC (Bld) 2.3 % 0-5 [facility] Work Phone: Glucose [Mass/Vol] 100 mg/dL 74-106 [facility] Work Phone: Comment on above: Fasting Glucose resu lt from 100 to 125 mg/dL suggests IMPAIRED HOMEOSTASIS per A.D.A. criteria. Neutrophils (Bld) [#/Vol] 4.4 10*3/uL 2.0-7.7 [facility] Work Phone: Neutrophils/100 WBC (Bld) 59.0 % 47-70 [facility] Work Phone: Potassium [Moles/Vol] 4.3 mmol/L 3.5-5.1 [facility] Work Phone: Protein [Mass/Vol] 7.4 g/dL 6.4-8.2 [facility] Work Phone: Sodium [Moles/Vol] 139 mmol/L 136-145 [facility] Work Phone: [phone] Triglyceride [Mass/Vol] 185 mg/dL [facility] Work Phone: Comment on above: The drugs N-Acetylcy steine and Metamizole may falsely depress this assay.Serum Triglycerides Reference Interval Normal <150 mg/dL Borderline high 150 - 199 mg/dL High 200 - 499 mg/dL Very High > or = 500 mg/dL WBC (Bld) [#/Vol] 7.5 10*3/uL 4.4-11.0 [facility] Work Phone: Blood erythrocytes count (nu mber/volume)on 07-24-2021 RBC (Bld) [#/Vol] 4.41 10*6/uL 4.2-5.4 [facility] Work Phone: Blood hemoglobin measurement (mass/volume)on 07-24-2021 Hemoglobin (Bld) [Mass/Vol] 12.8 g/dL 12.0-15.0 [facility] Work Phone: Blood lymphocytes/100 leukoc yteson 07-24-2021 Lymphocytes/100 WBC (Bld) 30.3 % 19-41 [facility] Work Phone: Blood monocytes/100 leukocyt eson 07-24-2021 Monocytes/100 WBC (Bld) 7.4 % 0-10 [facility] Work Phone: Blood platelet mean volumeon 07-24-2021 Platelet mean volume (Bld) [Entitic vol] 10.6 fL 6.2-12.0 [facility] Work Phone: Determination of erythrocyte mean corpuscular volume (MCV)on 07-24-2021 MCV (RBC) [Entitic vol] 91.8 fL 81-99 [facility] Work Phone: Hematocrit Auto (Bld) [Volum e fraction]on 07-24-2021 Hematocrit (Bld) [Volume fraction] 40.5 % 37-47 [facility] Work Phone: Laboratory - Chemistry and C hemistry - challengeon 07-24-2021 ALP [Catalytic activity/Vol] 65 U/L 45-117 [facility] Work Phone: ALT [Catalytic activity/Vol] 31 U/L 13-56 [facility] Work Phone: CO2 [Moles/Vol] 30.0 mmol/L 21.0-32.0 [facility] Work Phone: Globulin (S) [Mass/Vol] 3.9 g/dL 2.2-4.2 [facility] Work Phone: Urea nitrogen/Creatinine [Mass ratio] 14.2 mg/mg 10-20 [facility] Work Phone: Laboratory - Hematology and Cell countson 07-24-2021 Erythrocyte distribution width (RBC) [Entitic vol] 50.5 fL 35.1-43.9 [facility] Work Phone: Erythrocyte distribution width (RBC) [Ratio] 14.9 % 11.6-14.6 [facility] Work Phone: Immature granulocytes/100 WBC (Bld) 0.300 % 0.0-0.9 [facility] Work Phone: Comment on above: IG% - Immature Granu locytes (promyelocytes, myelocytes and metamyelocytes) > 1% indicates that a LEFT SHIFT is Present. MCH (RBC) [Entitic mass] 29.0 pg 27.0-32.0 [facility] Work Phone: Nucleated RBC/100 WBC (Bld) [Ratio] 0 % 0-5 [facility] Work Phone: MCHC Auto (RBC) [Mass/Vol]on 07-24-2021 MCHC (RBC) [Mass/Vol] 31.6 g/dL 32-36 [facility] Work Phone: No Panel Informationon 07-24 Estimated GFR (MDRD) Amer 119 mL/min >60 [facility] Work Phone: Comment on above: GFR Calc Estimated GFR (MDRD) Non-Af Amer 98 mL/min >60 [facility] Work Phone: Comment on above: Non- GFR Calc Vitamin D 25-Hydroxy 28.7 ng/mL [facility] Work Phone: Comment on above: Vitamin D 25(OH) Sta tus Range Deficiency <20 ng/mL (50nmol/L) Insufficiency 20 - 30 ng/mL (50 - 75 nmol/L) Sufficiency 30 - 100 ng/mL (75 - 250 nmol/L) Toxicity >100 ng/mL (>250 nmol/L) Platelets bldon 07-24-2021 Platelets (Bld) [#/Vol] 238 10*3/uL 150-450 [facility] Work Phone: Serum or plasma albumin carmen urement (mass/volume)on 07-24-2021 Albumin [Mass/Vol] 3.5 g/dL 3.2-5.0 [facility] Work Phone: Serum or plasma albumin/glob ulin mass ratioon 07-24-2021 Albumin/Globulin [Mass ratio] 0.9 {ratio} 0.9-2.4 [facility] Work Phone: Serum or plasma calcium carmen urement (mass/volume)on 07-24-2021 Calcium [Mass/Vol] 10.0 mg/dL 8.5-10.1 [facility] Work Phone: Serum or plasma cholesterol in HDL measurement (mass/volume)on 07-24-2021 Cholesterol in HDL [Mass/Vol] 59 mg/dL [facility] Work Phone: Comment on above: The drugs N-Acetylcy steine and Metamizole may falsely depress this assay. Reference Range HDL <40 mg/dL Low HDL Cholesterol HDL >or= 60 mg/dL High HDL Cholesterol Serum or plasma cholesterol in VLDL measurement (mass/volume)on 07-24-2021 Cholesterol in VLDL [Mass/Vol] 37 mg/dL 5-40 [facility] Work Phone: Serum or plasma creatinine m easurement (mass/volume)on 07-24-2021 Creatinine [Mass/Vol] 0.63 mg/dL 0.55-1.02 [facility] Work Phone: Comment on above: The validity of the calculated GFR & GFRAA in patients over 70 years has not been determined. Clinical correlation is essential. Serum or plasma low density lipoprotein (LDL) cholesterol measurement (mass/volume)on 07-24-2021 Cholesterol in LDL [Mass/Vol] 161 mg/dL 0-130 [facility] Work Phone: Serum or plasma urea nitroge n measurement (mass/volume)on 07-24-2021 Urea nitrogen [Mass/Vol] 9 mg/dL 7-18 [facility] Work Phone: Thin prep Papanicolaou smear with manual screeningon 07-24-2021 Thin prep Papanicolaou smear with manual screening 9 U/L 15-37 [facility] Work Phone: Thin prep Papanicolaou smear with manual screening 3 5-15 [facility] Work Phone: 25-hydroxyvitamin D [Mass/Vo l]on 12-20-2020 25-hydroxyvitamin D3 [Mass/Vol] 30.8 ng/mL Normal 30.0-100.0 [facility] Comment on above: Performed By: #### 6 2292-8 #### [facility] [address] [place] [address] [employer] HUNG [id number] HVITD VITAMIN D INTERPRETATION VITAMIN D STATUS RANGE -- DEFICIENCY <20 ng/mL INSUFFICIENCY 20-30 ng/mL SUFFICIENCY 30-100 ng/mL TOXICITY >100 ng/mL Normal [facility] Comment on above: Performed By: #### 6 2292-8 #### [facility] [address] [place] [address] [employer] Darlin OWENSIA [id number] Basic metabolic 2000 panelon 12-20-2020 Anion gap [Moles/Vol] 4.0 mmol/L Normal <=15.0 [facility] Comment on above: Performed By: #### 2 4321-2 #### [facility] [address] [place] [address] [employer] Darlin Rubio CLIA [id number] Calcium [Mass/Vol] 9.9 mg/dL Normal 8.5-10.1 [facility] Comment on above: Performed By: #### 2 4321-2 #### [facility] [address] [place] [address] [employer]lin OWENSIA [id number] Chloride [Moles/Vol] 107 mmol/L Normal 98-107 [facility] Comment on above: Performed By: #### 2 4321-2 #### [facility] [address] [place] [address] [employer] Darlin Rubio CLIA [id number] CO2 [Moles/Vol] 29 mmol/L Normal 21-32 [facility] Comment on above: Performed By: #### 2 4321-2 #### [facility] [address] [place] [address] [employer] OWENSIA [id number] Creatinine [Mass/Vol] 0.62 mg/dL Normal 0.51-0.95 [facility] Comment on above: Performed By: #### 2 4321-2 #### [facility] [address] [place] [address] [employer]lin OWENSIA [id number] GFR/1.73 sq M.predicted MDRD (S/P/Bld) [Vol rate/Area] mL/min/{1.73_m2} Normal >=59 [facility] Comment on above: Performed By: #### 2 4321-2 #### [facility] [address] [place] [address] [employer]lin OWENSIA [id number] Glucose [Mass/Vol] 94 mg/dL Normal 74-106 [facility] Comment on above: Performed By: #### 2 4321-2 #### [facility] [address] [facility] [place] [address] [employer] - Darlin Rubiorah HUNG [id number] HGFR GLOMERULAR FILTRATIO N RATE INTERPRETATION~The eGFR is calculated using the MDRD equation.~This equation has been validated in patients with chronic kidney disease;~however, it underestimates the GFR in healthy patients with GFR's over 60 mL/min.~The equation is not valid in children under the age of 18.~NOTE: Criteria for Chronic Kidney Disease:~ ~1. Kidney damage for at least three months, as defined~by structural or functional abnormalities of the kidney,~with or without decreased glomerular filtration rate, manifested by either:~* Pathological abnormalities or~* Markers of Kidney damage, including abnormalities in~the composition of the blood or urine or abnormalities in imaging tests.~ ~2. GFR <60 mL/min/1.73 m squared for at least three months, with or without kidney damage.~ Normal [facility] Comment on above: Performed By: #### 2 4321-2 #### [facility] [address] [facility] [place] [address] [employer] Darlin Rubiorah HUNG [id number] Potassium [Moles/Vol] 4.7 mmol/L Normal 3.5-5.1 [facility] Comment on above: Performed By: #### 2 4321-2 #### [facility] [address] [facility] [place] [address] [employer] Darlin Rubiorah HUNG [id number] Sodium [Moles/Vol] 140 mmol/L Normal 136-145 [facility] Comment on above: Performed By: #### 2 4321-2 #### [facility] [address] [facility] [place] [address] [facility] [id number] Urea nitrogen [Mass/Vol] 12 mg/dL Normal 7-17 [facility] Comment on above: Performed By: #### 2 4321-2 #### [facility] [address] [place] [address] [employer] HUNG [id number] DEXA BONE DENSITYon 12-21-19 DEXA BONE DENSITY BONE MINERAL DENSITY DETERMINATION: Risk Factors: Postmenopausal Instrument: Apruve, Horizon W, 5.0.6.07 TECHNIQUE: The average bone mineral density was measured across the hips and spine. FINDINGS: Right Femoral Neck: Density of 0.573 g/sq cm with a T-score of -2.5 Total Right Hip: Density of 0.790 g/sq cm with a T-score of -1.2 Left Femoral Neck: Density of 0.561 g/sq cm with a T-score of -2.6 Total Left Hip: Density of 0.810 g/sq cm with a T-score of -1.1 Spine L1, L2, L3: Density of 0.982 g/sq cm with at T-score of -0.3 IMPRESSION: WHO classification: (based on the lowest T-score of the above): Osteoporosis NOTES: 1) In order to compare results through the years, it is necessary that the patient be scanned on the same instrument each time, or on instruments that have been cross-correlated. If this is not done, then difference may be due to differences in the machines, rather than to changes in the patient's bone density. 2) The World Health Organization defines normal as a T-score above -1.0, osteopenia as a T-score between -1 and -2.5, and osteoporosis as a T-score below -2.5. These distinctions are somewhat artificial. Bone mineral loss is a complex process and treatment should be based on bone mineral density as well as other clinical factors. For each loss of one standard deviation there is a two time increase in fracture risk for the spine and 2.5 time increase in fracture risk for the hip compared with young normals. Normal [facility] Lipid panel with direct LDLo n 12-20-2020 Cholesterol [Mass/Vol] 319 mg/dL High <=200 [facility] Comment on above: Performed By: #### 5 7698-3 #### [facility] [address] [place] [address] [employer] HUNG [id number] Cholesterol in HDL [Mass/Vol] 79 mg/dL High 40-59 [facility] Comment on above: Performed By: #### 5 7698-3 #### [facility] [address] [place] [address] [employer] HUNG [id number] Cholesterol in LDL [Mass/Vol] 203 mg/dL High 5-100 [facility] Comment on above: Performed By: #### 5 7698-3 #### [address] [place] [address] [employer] Darlin HUNG [id number] CHOLESTEROL/HDL 4.0 Normal [facility] Comment on above: Performed By: #### 5 7698-3 #### [place] [address] [place] [address] [employer] Darlin HUNG [id number] HCHOL CHOLESTEROL INTERPRETATION Desirable <200 Borderline High 200-239 High >240 Normal [facility] Comment on above: Performed By: #### 5 7698-3 #### [place] [address] [employer] - Darlin HUNG [id number] HLDL LDL INTERPRETATION Desirable <100 Near Optimal 100-129 Borderline High 130-159 High 160-190 Very High >190 Normal [facility] Comment on above: Performed By: #### 5 7698-3 #### [address] [place] [address] [employer] - Darlin HUNG [id number] HLIPID ATEROSCLEROSIS RISK FACTORS FOR LDL, HDL, AND CHOLESTEROL RISK FACTOR SEX LDL/HDL CHOL/HDL ------- 1/2 Average M 1.00 3.43 F 1.47 3.27 Average M 3.55 4.97 F 3.22 4.44 2X Average M 6.25 9.55 F 5.03 7.05 3X Average M 7.99 23.39 F 6.14 11.04 Normal [facility] Comment on above: Performed By: #### 5 7698-3 #### [facility] [address] [place] [address] [employer] Darlin HUNG [id number] HTRIG TRIGLYCERIDES INTERPRETATION Normal <150 Borderline High 150-199 High 200-499 Very High >500 Normal [facility] Comment on above: Performed By: #### 5 7698-3 #### [facility] [address] [place] [address] [employer] - Darlin OWENSIA [id number] LDL/HDL 2.6 Normal [facility] Comment on above: Performed By: #### 5 7698-3 #### [facility] [address] [place] [address] [employer] - Darlingeraldo OWENSIA [id number] Triglyceride [Mass/Vol] 185 mg/dL High <=150 [facility] Comment on above: Performed By: #### 5 7698-3 #### [facility] [address] [place] [address] [employer] - Darlin OWENSIA [id number] MAGNESIUMon 12-20-2020 Magnesium [Mass/Vol] 2.3 mg/dL Normal 1.6-2.6 [facility] Comment on above: Performed By: #### 1 9123-9 #### [facility] [address] [place] [address] [employer] CLIA [id number] PTH INTACTon 12-20-2020 Parathyrin.intact [Mass/Vol] 43.2 pg/mL Normal 18.4-80.1 [facility] Comment on above: Performed By: #### 2 731-8 #### [facility] [address] [place] [address] Computer Com[employer]itor - SplotherIA [id number] Parathyrin.intact [Mass/Vol] on 12-20-2020 Calcium [Mass/Vol] 10.0 mg/dL Normal 8.5-10.1 [facility] Comment on above: Performed By: #### 2 731-8 #### [facility] [address] [place] [address] [employer] Darlin HUNG [id number] HIP INTACT PTH INTERPRETATION Interpretation Intact PTH Calcium (pg/mL) (mg/dL) Normal 10.0 - 65.0 8.4 - 10.2 Primary Hyperparathyroidism >65.0 >10.2 Secondary Hyperparathyroidism >65.0 <10.2 Non-Parathyroid Hypercalcemia <65.0 >10.2 Hypoparathyroidism <10.2 <8.4 Non-Parathyroid Hypocalcemia 10.0 - 65.0 <8.4 Careful interpretation of the PTH result may be necessary to evaluate the falsely depressed PTH values in patients taking high doses of biotin. Normal [facility] Comment on above: Performed By: #### 2 731-8 #### [facility] [address] [facility] [place] [address] [employer] - Darlin HUNG [id number] Comprehensive metabolic 2000 panelon 06-30-2020 Albumin [Mass/Vol] 3.7 g/dL Normal 3.4-5.0 [facility] Comment on above: Performed By: #### 2 4323-8 #### [facility] [address] [place] [address] [employer] - Darlin HUNG [id number] ALP [Catalytic activity/Vol] 87 U/L Normal 50-136 [facility] Comment on above: Performed By: #### 2 4323-8 #### [facility] [address] [place] [address] [employer] - Darlin HUNG [id number] ALT [Catalytic activity/Vol] 22 U/L Normal 14-59 [facility] Comment on above: Performed By: #### 2 4323-8 #### [facility] [address] [facility] [place] [address] [employer] - Darlin HUNG [id number] Anion gap [Moles/Vol] 6.0 mmol/L Normal <=15.0 [facility] Comment on above: Performed By: #### 2 4323-8 #### [facility] [address] [place] [address] [employer] - Darlin OWENSIA [id number] AST [Catalytic activity/Vol] 6 U/L Low 15-37 [facility] Comment on above: Performed By: #### 2 4323-8 #### [facility] [address] [place] [address] [employer] - Darlin OWENSIA [id number] Bilirubin [Mass/Vol] 0.6 mg/dL Normal 0.2-1.0 [facility] Comment on above: Performed By: #### 2 4323-8 #### [facility] [address] [place] [address] [employer] - Darlin OWENSIA [id number] Calcium [Mass/Vol] 10.3 mg/dL High 8.5-10.1 [facility] Comment on above: Performed By: #### 2 4323-8 #### [facility] [address] [place] [address] [employer] - Darlin Rubio CLIA [id number] Chloride [Moles/Vol] 103 mmol/L Normal 98-107 [facility] Comment on above: Performed By: #### 2 4323-8 #### [facility] [address] [place] [address] [employer] - Darlin Rubio CLIA [id number] CO2 [Moles/Vol] 28 mmol/L Normal 21-32 [facility] Comment on above: Performed By: #### 2 4323-8 #### [facility] [address] [place] [address] [employer] - Darlin Rubio CLIA [id number] Creatinine [Mass/Vol] 0.62 mg/dL Normal 0.51-0.95 [facility] Comment on above: Performed By: #### 2 4323-8 #### [facility] [address] [place] [address] [employer] - Darlin OWENSIA [id number] GFR/1.73 sq M.predicted MDRD (S/P/Bld) [Vol rate/Area] mL/min/{1.73_m2} Normal >=59 [facility] Comment on above: Performed By: #### 2 4323-8 #### [facility] [address] [place] [address] [employer] - Darlin HUNG [id number] Glucose [Mass/Vol] 95 mg/dL Normal 74-106 [facility] Comment on above: Performed By: #### 2 4323-8 #### [facility] [address] [place] [address] [employer] - Darlin HUNG [id number] HGFR GLOMERULAR FILTRATIO N RATE INTERPRETATION~The eGFR is calculated using the MDRD equation.~This equation has been validated in patients with chronic kidney disease;~however, it underestimates the GFR in healthy patients with GFR's over 60 mL/min.~The equation is not valid in children under the age of 18.~NOTE: Criteria for Chronic Kidney Disease:~ ~1. Kidney damage for at least three months, as defined~by structural or functional abnormalities of the kidney,~with or without decreased glomerular filtration rate, manifested by either:~* Pathological abnormalities or~* Markers of Kidney damage, including abnormalities in~the composition of the blood or urine or abnormalities in imaging tests.~ ~2. GFR <60 mL/min/1.73 m squared for at least three months, with or without kidney damage.~ Normal [facility] Comment on above: Performed By: #### 2 4323-8 #### [facility] [address] [place] [address] [employer] - Darlin HUNG [id number] Potassium [Moles/Vol] 4.6 mmol/L Normal 3.5-5.1 [facility] Comment on above: Performed By: #### 2 4323-8 #### [facility] [address] [place] [address] [employer] - Darlin HUNG [id number] Protein [Mass/Vol] 7.7 g/dL Normal 6.4-8.2 [facility] Comment on above: Performed By: #### 2 4323-8 #### [facility] [address] [place] [address] [employer] - Darlin OWENSIA [id number] Sodium [Moles/Vol] 137 mmol/L Normal 136-145 [facility] Comment on above: Performed By: #### 2 4323-8 #### [facility] [address] [place] [address] [employer] - Darlin OWENSIA [id number] Urea nitrogen [Mass/Vol] 10 mg/dL Normal 7-17 [facility] Comment on above: Performed By: #### 2 4323-8 #### [facility] [address] [place] [address] [employer] - Darlin OWENSIA [id number] Lipid panel with direct LDLo n 06-30-2020 Cholesterol [Mass/Vol] 304 mg/dL High <=200 [facility] Comment on above: Performed By: #### 5 7698-3 #### [facility] [address] [place] [address] [employer] - Darlin OWENSIA [id number] Cholesterol in HDL [Mass/Vol] 98 mg/dL High 40-59 [facility] Comment on above: Performed By: #### 5 7698-3 #### [facility] [address] [place] [address] Computer [employer]itor - Darlin OWENSIA [id number] Cholesterol in LDL [Mass/Vol] 174 mg/dL High 5-100 [facility] Comment on above: Performed By: #### 5 7698-3 #### [facility] [address] [place] [address] Computer Com[employer] - Darlin OWENSIA [id number] CHOLESTEROL/HDL 3.1 Normal [facility] Comment on above: Performed By: #### 5 7698-3 #### [facility] [address] [place] [address] Computer Com[employer]itor - Darlin OWENSIA [id number] HCHOL CHOLESTEROL INTERPRETATION Desirable <200 Borderline High 200-239 High >240 Normal [facility] Comment on above: Performed By: #### 5 7698-3 #### [facility] [address] [facility] [place] [address] [employer] - Darlin OWENSPA [id number] HLDL LDL INTERPRETATION Desirable <100 Near Optimal 100-129 Borderline High 130-159 High 160-190 Very High >190 Normal [facility] Comment on above: Performed By: #### 5 7698-3 #### [facility] [address] [facility] [place] [address] [employer] - Darlin HUNG [id number] HLIPID ATEROSCLEROSIS RISK FACTORS FOR LDL, HDL, AND CHOLESTEROL RISK FACTOR SEX LDL/HDL CHOL/HDL ------- 1/2 Average M 1.00 3.43 F 1.47 3.27 Average M 3.55 4.97 F 3.22 4.44 2X Average M 6.25 9.55 F 5.03 7.05 3X Average M 7.99 23.39 F 6.14 11.04 Normal [facility] Comment on above: Performed By: #### 5 7698-3 #### [facility] [address] [facility] [place] [address] [employer] Compositor - [facility]linLaw[facility] CenterRub[facility] [id number] HTRIG TRIGLYCERIDES INTERPRETATION Normal <150 Borderline High 150-199 High 200-499 Very High >500 Normal [facility] Comment on above: Performed By: #### 5 7698-3 #### [facility] [address] [facility] [place] [address] [employer] - Darlin Rubio [facility] [id number] LDL/HDL 1.8 Normal [facility] Comment on above: Performed By: #### 5 7698-3 #### [facility] [address] [facility] [place] [address] [employer] - Darlin Rubio ROMANBELEM [id number] Triglyceride [Mass/Vol] 160 mg/dL High <=150 [facility] Comment on above: Performed By: #### 5 7698-3 #### [facility] [address] [place] [address] [employer] - Darlin HUNG [id number] MAMMOGRAM DIAGNOSTIC BI INCL CAD W TOMOon 06-29-2020 MAMMOGRAM DIAGNOSTIC BI INCL CAD W NORMA EXAM: BILATERAL DIGITAL DIAGNOSTIC MAMMOGRAM AND TARGETED LEFT BREAST ULTRASOUND [id number] EXAM DATE AND TIME: 06/29/2020 2:05 PM EST COMPARISON STUDIES: Mammograms 2018, 2017, 2015 INDICATION: One episode of left nipple pain. No current breast related clinical concerns. Family history of breast cancer in her maternal aunt. FINDINGS: Mammogram: Standard 2-D and 3-D combination tomosynthesis imaging was obtained of both breasts in the CC and MLO projections, and of the left breast in the ML projection. Computer-aided detection was utilized in the interpretation of this exam. The breast tissue is composed of scattered fibroglandular elements. There are benign calcifications in both breasts, including several fat necrosis calcifications in the right breast. No suspicious masses, calcifications or other findings are identified in either breast. Ultrasound: Targeted ultrasound was obtained of the left breast. In the left retroareolar region, corresponding to the area of clinical concern, there are no discrete solid or cystic sonographic abnormalities. IMPRESSION: 1. No findings suspicious for malignancy. 2. No mammographic or sonographic abnormalities in left retroareolar region, corresponding to the area of clinical concern. BI-RADS 2 - Benign, no evidence of malignancy. Normal interval followup is recommended in 12 months. OVERALL ASSESSMENT- BENIGN Results and recommendation were discussed with the patient in person at the time of the exam. A letter of notification will also be sent to the patient regarding the results. Normal [facility] ULTRASOUND BREAST UNILATERAL LEFTon 06-29-2020 ULTRASOUND BREAST UNILATERAL LEFT EXAM: BILATERAL DIGITAL DIAGNOSTIC MAMMOGRAM AND TARGETED LEFT BREAST ULTRASOUND [id number] EXAM DATE AND TIME: 06/29/2020 2:05 PM EST COMPARISON STUDIES: Mammograms 2018, 2017, 2015 INDICATION: One episode of left nipple pain. No current breast related clinical concerns. Family history of breast cancer in her maternal aunt. FINDINGS: Mammogram: Standard 2-D and 3-D combination tomosynthesis imaging was obtained of both breasts in the CC and MLO projections, and of the left breast in the ML projection. Computer-aided detection was utilized in the interpretation of this exam. The breast tissue is composed of scattered fibroglandular elements. There are benign calcifications in both breasts, including several fat necrosis calcifications in the right breast. No suspicious masses, calcifications or other findings are identified in either breast. Ultrasound: Targeted ultrasound was obtained of the left breast. In the left retroareolar region, corresponding to the area of clinical concern, there are no discrete solid or cystic sonographic abnormalities. IMPRESSION: 1. No findings suspicious for malignancy. 2. No mammographic or sonographic abnormalities in left retroareolar region, corresponding to the area of clinical concern. BI-RADS 2 - Benign, no evidence of malignancy. Normal interval followup is recommended in 12 months. OVERALL ASSESSMENT- BENIGN Results and recommendation were discussed with the patient in person at the time of the exam. A letter of notification will also be sent to the patient regarding the results. Normal [facility] Vital Signs Date Time Vital Sign Value Performing Clinician Faci lity 08-13-2024 11:05-0400 Body height 160.[address] Anna Hightower MD Work Phone: [facility] 08-13-2024 11:05-0400 Body mass index (BMI) [Ratio] 32.9 kg/m2 Dr. Anna Hightower MD Work Phone: [facility] 08-13-2024 11:05-0400 Body temperature 98.2 [degF] Dr. Anna Hightower MD Work Phone: [facility] 08-13-2024 11:05-0400 Body weight 84.[address] Anna Hightower MD Work Phone: [facility] 08-13-2024 11:05-0400 Diastolic blood pressure 66 mm[Hg] Dr. Anna Hightower MD Work Phone: [facility] 08-13-2024 11:05-0400 Heart rate 75 /min Dr. Anna Hightower MD Work Phone: [facility] 08-13-2024 11:05-0400 Respiratory rate 18 /min Dr. Anna Hightower MD Work Phone: [facility] 08-13-2024 11:05-0400 SaO2% (BldA) [Mass fraction] 98 % Dr. Anna Hightower MD Work Phone: [facility] 08-13-2024 11:05-0400 Systolic blood pressure 118 mm[Hg] Dr. Anna Hightower MD Work Phone: [facility] 07-07-2023 08:18-0500 Body height 160.[address] Anna Hightower Work Phone: [facility] 07-07-2023 08:18-0500 Body mass index (BMI) [Ratio] 31.1 kg/m2 Dr. Anna Hightower Work Phone: [facility] 07-07-2023 08:18-0500 Body temperature 97.1 [degF] Dr. Anna Hightower Work Phone: [facility] 07-07-2023 08:18-0500 Body weight 79.[address] Anna Hightower Work Phone: [facility] 07-07-2023 08:18-0500 Diastolic blood pressure 72 mm[Hg] Dr. Anna Hightower Work Phone: [facility] 07-07-2023 08:18-0500 Heart rate 72 /min Dr. Anna Hightower Work Phone: [facility] 07-07-2023 08:18-0500 Respiratory rate 16 /min Dr. Anna Hightower Work Phone: [facility] 07-07-2023 08:18-0500 SaO2% (BldA) [Mass fraction] 97 % Dr. Anna Hightower Work Phone: [facility] 07-07-2023 08:18-0500 Systolic blood pressure 122 mm[Hg] Dr. Anna Hightower Work Phone: [facility] 03-05-2023 11:23-0400 Body height 160.[address] Anna Hightower Work Phone: [facility] 03-05-2023 11:21-0400 Body mass index (BMI) [Ratio] 31.1 kg/m2 Dr. Anna Hightower Work Phone: [facility] 03-05-2023 11:21-0400 Body weight 79.[address] Anna Hightower Work Phone: [facility] 03-05-2023 11:21-0400 Diastolic blood pressure 68 mm[Hg] Dr. Anna Hightower Work Phone: [facility] 03-05-2023 11:21-0400 Systolic blood pressure 93 mm[Hg] Dr. Anna Hightower Work Phone: [facility] 01-01-2023 10:34-0400 Body height 160.[address] Anna Hightower Work Phone: [facility] 01-01-2023 10:34-0400 Body mass index (BMI) [Ratio] 30.9 kg/m2 Dr. Anna Hightower Work Phone: [facility] 01-01-2023 10:34-0400 Body temperature 97.5 [degF] Dr. Anna Hightower Work Phone: [facility] 01-01-2023 10:34-0400 Body weight 79.[address] Anna Hightower Work Phone: [facility] 01-01-2023 10:34-0400 Diastolic blood pressure 80 mm[Hg] Dr. Anna Hightower Work Phone: [facility] 01-01-2023 10:34-0400 Heart rate 64 /min Dr. Anna Hightower Work Phone: [facility] 01-01-2023 10:34-0400 Respiratory rate 18 /min Dr. Anna Hightower Work Phone: [facility] 01-01-2023 10:34-0400 SaO2% (BldA) [Mass fraction] 97 % Dr. Anna Hightower Work Phone: [facility] 01-01-2023 10:34-0400 Systolic blood pressure 120 mm[Hg] Dr. Anna Hightower Work Phone: [facility] 06-26-2022 11:14-0500 Body height 160.[address] Anna Hightower Work Phone: [facility] 06-26-2022 11:14-0500 Body mass index (BMI) [Ratio] 30.5 kg/m2 Dr. Anna Hightower Work Phone: [facility] 06-26-2022 11:14-0500 Body temperature 95 [degF] Dr. Anna Hightower Work Phone: [facility] 06-26-2022 11:14-0500 Body weight 78.[address] Anna Hightower Work Phone: [facility] 06-26-2022 11:14-0500 Diastolic blood pressure 92 mm[Hg] Dr. Anna Hightower Work Phone: [facility] 06-26-2022 11:14-0500 Heart rate 70 /min Dr. Anna Hightower Work Phone: [facility] 06-26-2022 11:14-0500 Respiratory rate 18 /min Dr. Anna Hightower Work Phone: [facility] 06-26-2022 11:14-0500 SaO2% (BldA) [Mass fraction] 99 % Dr. Anna Hightower Work Phone: [facility] 06-26-2022 11:14-0500 Systolic blood pressure 128 mm[Hg] Dr. Anna Hightower Work Phone: [facility] 03-22-2022 08:59-0500 Body temperature 96.3 [degF] Dr. Anna Hightower Work Phone: [facility] 03-22-2022 08:59-0500 Body weight 77.[address] Anna Hightower Work Phone: [facility] 03-22-2022 08:59-0500 Diastolic blood pressure 84 mm[Hg] Dr. Anna Hightower Work Phone: [facility] 03-22-2022 08:59-0500 Heart rate 71 /min Dr. Anna Hightower Work Phone: [facility] 03-22-2022 08:59-0500 Respiratory rate 18 /min Dr. Anna Hightower Work Phone: [facility] 03-22-2022 08:59-0500 SaO2% (BldA) [Mass fraction] 96 % Dr. Anna Hightower Work Phone: [facility] 03-22-2022 08:59-0500 Systolic blood pressure 124 mm[Hg] Dr. Anna Hightower Work Phone: [facility] 12-17-2021 09:21-0400 Body height 160.[address] Anna Hightower Work Phone: [facility] Work Phone: 12-17-2021 09:21-0400 Body mass index (BMI) [Ratio] 31.1 kg/m2 Dr. Anna Hightower Work Phone: [facility] Work Phone: 12-17-2021 09:21-0400 Body temperature 97.9 [degF] Dr. Anna Hightower Work Phone: [facility] Work Phone: 12-17-2021 09:21-0400 Body weight 79.[address] Anna Hightower Work Phone: [facility] Work Phone: 12-17-2021 09:21-0400 Diastolic blood pressure 80 mm[Hg] Dr. Anna Hightower Work Phone: [facility] Work Phone: 12-17-2021 09:21-0400 Heart rate 65 /min Dr. Anna Hightower Work Phone: [facility] Work Phone: 12-17-2021 09:21-0400 Respiratory rate 14 /min Dr. Anna Hightower Work Phone: [facility] Work Phone: 12-17-2021 09:21-0400 SaO2% (BldA) [Mass fraction] 99 % Dr. Anna Hightower Work Phone: [facility] Work Phone: 12-17-2021 09:21-0400 Systolic blood pressure 138 mm[Hg] Dr. Anna Hightower Work Phone: [facility] Work Phone: 07-24-2021 08:41-0400 Body temperature 96.2 [degF] Dr. Anna Hightower Work Phone: [facility] Work Phone: 07-24-2021 08:41-0400 Body weight 80.[address] Anna Hightower Work Phone: [facility] Work Phone: 07-24-2021 08:41-0400 Diastolic blood pressure 80 mm[Hg] Dr. Anna Hightower Work Phone: [facility] Work Phone: 07-24-2021 08:41-0400 Heart rate 74 /min Dr. Anna Hightower Work Phone: [facility] Work Phone: 07-24-2021 08:41-0400 Respiratory rate 16 /min Dr. Anna Hightower Work Phone: [facility] Work Phone: 07-24-2021 08:41-0400 SaO2% (BldA) [Mass fraction] 98 % Dr. Anna Hightower Work Phone: [facility] Work Phone: 07-24-2021 08:41-0400 Systolic blood pressure 122 mm[Hg] Dr. Anna Hightower Work Phone: [facility] Work Phone: Encounters Encounter Date Encounter Type Care Provider Facility Start: 12-02-2024 ambulatory Mg [place] Facility :[facility] Start: 10-11-2024 End: 10-11-2024 Patient encounter procedure Naz FRANCES -[facility] Work Phone: Start: 10-11-2024 End: 10-11-[address] Anna Hightower MD Work Phone: [facility] Work Phone: Start: 08-26-2024 End: 08-26-[address] Anna Hightower MD Work Phone: [facility] Work Phone: Start: 08-26-2024 End: 08-26-[address] Anna Hightower MD -[facility] Work Phone: Start: 08-26-2024 End: 08-26-2024 ambulatory Efewongbe Oleghe Facility:[facility] Start: 08-13-[address] Anna Hightower MD Work Phone: [facility] Start: 08-13-2024 End: 08-13-[address] Anna Hightower MD -[facility] Work Phone: Start: 08-13-2024 End: 08-13-[address] Anna Hightower MD [facility] Start: 08-13-2024 End: 08-13-[address] Anna Hightower MD Work Phone: [facility] Work Phone: Start: 08-13-2024 End: 08-13-2024 ambulatory Efewpeasebe Olee Facility:[facility] Start: 04-12-2024 ambulatory Efewongbe Oleghe Facili ty:[facility] Start: 04-12-2024 End: 04-12-2024 [facility] Start: 04-09-2024 End: 04-09-2024 [facility] Start: 04-05-2024 End: 04-05-20[facility] Start: 03-17-2024 End: 03-17-2024 ambulatory Efewongbe Oleghe Facility:[facility] Start: 02-06-2024 ambulatory Efewongbe Oleghe Facili ty:[facility] Start: 02-06-2024 End: 02-06-2024 amb[facility] Start: 01-07-2024 End: 01-07-2024 ambulatory Efewongbe Oleghe Facility:[facility] Start: 01-07-2024 End: 01-07-2024 [facility] Start: 08-15-2023 End: 08-15-[address] Anna Hightower Work Phone: [facility] Work Phone: Start: 08-15-2023 End: 08-15-[address] Anna Hightower Work Phone: [facility] Work Phone: Start: 07-07-2023 End: 07-07-[address] Anna Hightower Work Phone: [facility] Work Phone: Start: 07-07-2023 End: 07-07-2023 Encounter for general adult medical examination without abnormal findings Dr. Anna Hightower Work Phone: [facility] Start: 07-07-2023 End: 07-07-[address] Anna Hightower Work Phone: [facility] Work Phone: Start: 03-05-2023 End: 03-05-[address] Anna Hightower Work Phone: [facility] Work Phone: Start: 03-05-2023 End: 03-05-[address] Anna Hightower Work Phone: [facility]Laboratory, Specimen Work Phone: Start: 03-05-2023 End: 03-05-[address] Anna Hightower Work Phone: [facility] Work Phone: Start: 2023 End: [address] Anna Hightower Work Phone: [facility] Work Phone: Start: 2023 End: [address] Anna Hightower Work Phone: [facility] Work Phone: Start: 01-01-2023 End: 01-01-[address] Anna Hightower Work Phone: [facility] Work Phone: Start: 01-01-2023 End: 01-01-[address] Anna Hightower Work Phone: [facility] Work Phone: Start: 12-17-2022 End: 12-17-[address] Anna Hightower Work Phone: [facility] Work Phone: Start: 10-15-2022 End: 10-15-[address] Anna Hightower Work Phone: [facility] Work Phone: Start: 10-15-2022 End: 10-15-[address] Anna Hightower Work Phone: [facility] Start: 08-15-2022 End: 08-15-[address] Anna Hightower Work Phone: [facility] Work Phone: Start: 08-15-2022 End: 08-15-[address] Anna Hightower Work Phone: [facility] Start: 08-13-2022 End: 08-13-[address] Anna Hightower Work Phone: [facility] Start: 06-26-2022 End: 06-26-[address] Anna Hightower Work Phone: [facility] Work Phone: Start: 06-26-2022 End: 06-26-2022 Encounter for general adult medical examination without abnormal findings Dr. Anna Hightower Work Phone: [facility] Start: 06-26-2022 End: 06-26-[address] Anna Hightower Work Phone: [facility] Start: 05-28-2022 End: 05-28-[address] Anna Hightower Work Phone: [facility] Work Phone: Start: 05-28-2022 End: 05-28-[address] Anna Hightower Work Phone: [facility] Start: 03-22-2022 End: 03-22-[address] Anna Hightower Work Phone: [facility] Work Phone: Start: 03-22-2022 End: 03-22-[address] Anna Hightower Work Phone: [facility] Start: 12-17-2021 End: 12-17-[address] Anna Hightower Work Phone: [facility] Start: 08-01-2021 End: 08-01-[address] Anna Hightower Work Phone: [facility] Start: 07-24-2021 End: 07-24-2021 Encounter for general adult medical examination without abnormal findings Dr. Anna Hightower Work Phone: [facility] Start: 07-24-2021 End: 07-24-[address] Anna Hightower Work Phone: [facility] Start: 03-27-[address] Anna Hightower Work Phone: [facility] Start: 12-27-[address] JOSE RAMON CAO MD F acility:[facility] Start: 12-20-2020 End: 12-21-[address] JOSE RAMON CAO MD Facility:[facility] Start: 12-20-2020 End: 12-21-2020 ambulatory Roc [phone] Lazaro [phone] Facility:[facility] Start: 07-21-2020 End: 07-22-[address] LIZBETH GREEN MD Facility:[facility] Start: 06-30-2020 End: 07-01-[address] LIZBETH GREEN MD Facility:[facility] Start: 06-29-2020 End: 06-30-2020 ambulatory Akanksha [phone] Bereket [phone] Facility:[facility] Procedures Date Procedure Procedure Detail Performing Clinician Start: 08-26-2024 Dual energy X-ray absorptiometry Dr. Anna Hightower MD Work Phone: Start: 08-26-2024 Screening mammography Shakeel Hightower MD Work Phone: Start: 08-13-2024 Vitamin D, 25-hydrox y measurement Dr. Anna Hightower MD Work Phone: Comment on above: Vitamin D StatusDefi ciency: <20 ng/mL (50nmol/L)Insufficiency: 20-30 ng/mL (50-75 nmol/L)Sufficiency: 30-100 ng/mL (75-250 nmol/L)Toxicity: >100 ng/mL (>250 nmol/L) Start: 08-15-2023 Screening mammography Shakeel Hightower Work Phone: Start: 03-05-2023 Cytopathology proced ure, preparation of smear, genital source Dr. Anna Hightower Work Phone: Start: 03-05-2023 Investigation of transfusion reaction Dr. Anna Hightower Work Phone: Start: [address] Tom Hightower Work Phone: Start: 01-01-[address] Tom Hightower Work Phone: Start: 08-13-2022 Dual energy X-ray absorptiometry Dr. Anna Hightower Work Phone: Start: 08-13-2022 Screening mammography D radha Hightower Work Phone: Start: 08-01-2021 Screening mammography D radha Hightower Work Phone: Plan of Treatment Date Care Activity Detail Author Start: 08-13-2024 Patient referral [facility] Work Phone: Start: 01-01-2023 Patient referral [facility] Work Phone: Start: 03-22-2022 Patient referral [facility] Work Phone: DXA Bone [Mass/Area] Bone density [facility] DXA Bone [Mass/Area] Bone density [facility] MG Breast - bilateral Screening [facility] MG Breast - bilateral Screening [facility] MG Breast - bilateral Screening [facility] Patient referral [facility] Work Phone: Immunizations Immunization Date Immunization Notes Care Provider [facility] 02-11-2023 influenza, injectabl e, quadrivalent, preservative free Dr. Anna Hightower MD Work Phone: [facility] 02-07-2022 Covid Pfizer Bivalen t Booster Dr. Anna Hightower MD Work Phone: [facility] 02-07-2022 influenza, injectabl e, quadrivalent, preservative free Dr. Anna Hightower MD Work Phone: [facility] 10-24-[address] Anna Hightower MD Work Phone: [facility] 08-01-[address] Anna Hightower MD Work Phone: [facility] 07-24-2021 pneumococcal polysaccharide vaccine, [address] Anna Hightower Work Phone: [facility] 07-24-2021 pneumococcal vaccine , unspecified formulation Dr. Anna Hightower Work Phone: [facility] Work Phone: 03-06-2021 Influenza High-Dose Quadrivalent Dr. Anna Hightower MD Work Phone: [facility] 03-05-2021 influenza, injectabl e, quadrivalent, preservative free Dr. Anna Hightower Work Phone: [facility] 03-05-2021 influenza, seasonal, injectable Dr. Anna Hightower Work Phone: [facility] 02-09-2021 Covid (Pfizer) Dr. Anna Hightower Work Phone: [facility] 07-21-2020 Covid (Pfizer) Dr. Anna Hightower Work Phone: [phone] [place] [address] 06-30-2020 Covid (Pfizer) Dr. Anna Hightower Work Phone: [facility] 03-01-2020 influenza, injectabl e, quadrivalent, preservative free Dr. Anna Hightower MD Work Phone: [facility] 09-07-2019 Diptheria,Tetanus,Pe rtus sis Vaccine Dr. Anna Hightower Work Phone: [facility] 04-21-2019 influenza, injectabl e, quadrivalent, preservative free Dr. Anna Hightower MD Work Phone: [facility] 05-25-2018 pneumococcal conjuga te vaccine, [address] Anna Hightower MD Work Phone: [facility] 10-18-2015 pneumococcal conjuga te vaccine, [address] Anna Hightower MD Work Phone: [facility] 10-18-2015 zoster vaccine, live Dr. Jc Hightower MD Work Phone: [facility] Payers Date Payer Category Payer Unknown [id number] 2024 Self-pay [id number] 2023 Private Health Insurance 101 [id number] 2011 Unknown [id number] 1959 Private Health Insurance [id number] 1949 Unknown [id number] 2.16.8 [id number] 1949 Unknown [id number] 2.16.8 [id number] 1949 Unknown [id number] 2.16.8 [id number] 1949 Unknown [id number] 2.16.8 [id number] 1949 Unknown [id number] 2.16.8 [id number] 1949 Unknown [id number] 2.16.8 [id number] 1949 Unknown [id number] 2.16.8 [id number] Medicare [id number] Unknown [id number] 2.16.8 [id number] Unknown [id number] 2.16.8 [id number] Unknown [id number] 2.16.8 [id number] Unknown [id number] 2.16.8 [id number] Unknown [id number] 2.16.8 [id number] Unknown [id number] 2.16.8 [id number] Unknown [id number] 2.16.8 [id number] Unknown [id number] 2.16.8 [id number] Unknown [id number] 2.16.8 [id number] Unknown [id number] 2.16.8 [id number] Unknown [id number] 2.16.8 [id number] Unknown [id number] 2.16.8 [id number] Unknown [id number] 2.16.8 [id number] Unknown [id number] 2.16.8 [id number] Social History Date Type Detail Facility Start: 07-24-2021 End: 07-07-2023 Tobacco smoking status LAIS Unknown if ever smoked [facility] Start: 1950 Sex Assigned At Female [facility] Start: 07-07-2023 Tobacco smoking stat us LAIS Never smoked tobacco (finding) [facility] Start: 08-19-2024 End: 08-31-2024 Sex Female (finding) [facility] Evaluation note 08-13-2024 Note Date & Type Note Facility 08-13-2024 Evaluation note Diagnosis Onset Date Resolution Health care maintenance acute A pril 2024 10:56am Essential hypertension chronic Ap ril 2024 10:56am Generalized anxiety disorder chronic August 13, 2024 10:56am GERD (gastroesophageal reflux disease) chronic August 13, 2024 10:56am Hyperlipidemia chronic August 10:56am Osteoporosis chronic August 13, 2024 10:56am [facility] Work Phone: Evaluation note Note Date & Type Note Facility Evaluation note Diagnosis Onset Date Health care maintenance acut e Macular degeneration acute Essential hypertension chron ic Generalized anxiety disorder chronic Hyperlipidemia chronic Osteoporosis [facility] Work Phone: Evaluation note Note Date & Type Note Facility Evaluation note Diagnosis Onset Date Cough acute Fibromyalgia acute Osteoarthritis acute Chronic pain chronic GERD (gastroesophageal reflux disease) chronic Arthritis acute Myalgia acute Myalgia after COVID-19 vaccination acute Trigger finger of right hand acute [facility] Work Phone: Evaluation note Note Date & Type Note Facility Evaluation note Diagnosis Onset Date Arthritis acute Myalgia acute Myalgia after COVID-19 vaccination acute Trigger finger of right hand acute [facility] Work Phone: Evaluation note Note Date & Type Note Facility Evaluation note Diagnosis Onset Date Arthritis acute Myalgia acute Myalgia after COVID-19 vaccination acute Trigger finger of right hand acute Health care maintenance acut e Essential hypertension chron ic Hyperlipidemia chronic Osteoporosis [facility] Work Phone: Evaluation note Note Date & Type Note Facility Evaluation note Diagnosis Onset Date Health care maintenance acut e Essential hypertension chron ic Hyperlipidemia chronic Osteoporosis [facility] Work Phone: Evaluation note Note Date & Type Note Facility Evaluation note Diagnosis Onset Date Anemia acute Arthritis chronic Essential hypertension chron ic Osteoporosis chronic Vaginal odor [facility] Work Phone: Evaluation note Note Date & Type Note Facility Evaluation note Diagnosis Onset Date Anemia acute Arthritis chronic Essential hypertension chron ic Osteoporosis chronic Vaginal odor chronic Vaginal odor [facility] Work Phone: Evaluation note Note Date & Type Note Facility Evaluation note Diagnosis Onset Date Health care maintenance acut e Arthritis chronic Essential hypertension chron ic Hyperlipidemia chronic Osteoporosis [facility] Work Phone: Summary Purpose Family History No Family History Records Found Relationship Condition Age at Onset Recorded Date/T bonnie Not Specified Myocardial infarction Unknown Advance Directives No Advanced Directives Records FoundNo Advanced Directives Records Found Chief Complaint and Reason for Visit Chief Complaint Admit Date 4 M FU August 13, 2024 10: 56am SCREENING August 26, 2024 2:4 3pm Reason for Visit Admit Date Health care maintenance August 13, 2024 10:56am Essential hypertension August 13, 2024 10:56am Generalized anxiety disorder August 13, 2024 10:56am GERD (gastroesophageal reflux disease) A pril 2024 10:56am Hyperlipidemia August 13, 2024 10: 56am Osteoporosis August 13, 2024 10: 56am Chief Complaint med refills SCREENING Reason for Visit Health care maintena nce Macular degeneration Essential hypertension Generalized anxiety disorder Hyperlipidemia Osteoporosis Chief Complaint FOLLOW UP OSTEOARTHRITIS CONCERNS Reason for Visit Cough Fibromyalgia Osteoarthritis Chronic pain GERD (gastroesophageal reflux disease) Arthritis Myalgia Myalgia after COVID-19 vaccination Trigger finger of right hand Chief Complaint OSTEOARTHRITIS JEFFREY RNS PAIN- [facility]Y PCP Reason for Visit Arthritis Myalgia Myalgia after COVID-19 vaccination Trigger finger of right hand Chief Complaint OSTEOARTHRITIS JEFFREY RNS PAIN- COPY PCP 6 M FU Reason for Visit Arthritis Myalgia Myalgia after COVID-19 vaccination Trigger finger of right hand Health care maintenance Essential hypertension Hyperlipidemia Osteoporosis Chief Complaint PAIN- COPY PCP 6 M FU SCREENING PAIN- COPY PCP Reason for Visit Health care maintena nce Essential hypertension Hyperlipidemia Osteoporosis Chief Complaint 6 M FU SCREENING PAIN- COPY PCP PAIN- [facility]Y PCP Reason for Visit Health care maintena nce Essential hypertension Hyperlipidemia Osteoporosis Chief Complaint PAIN- COPY PCP PAIN- COPY PCP 6 M FU REDRAW Reason for Visit Anemia Arthritis Essential hypertension Osteoporosis Vaginal odor Chief Complaint PAIN- COPY PCP 6 M FU REDRAW menopause concerns, ref from Dr Hightower Reason for Visit Anemia Arthritis Essential hypertension Osteoporosis Vaginal odor Vaginal odor Chief Complaint 6 M FU Reason for Visit Health care maintena nce Arthritis Essential hypertension Hyperlipidemia Osteoporosis Chief Complaint 6 M FU SCREENING Reason for Visit Health care maintena nce Arthritis Essential hypertension Hyperlipidemia Osteoporosis Chief Complaint Admit Date 4 M FU August 13, 2024 10: 56am Chief Complaint Admit Date 4 M FU August 13, 2024 10: 56am SCREENING August 26, 2024 2:4 3pm Antoine's October 11, 2024 9:13a m Additional Source Comments INFORMATION SOURCE (unrecogn ized section and content) DATE CREATED AUTHOR 12/28/2020 [facility] DATE CREATED AUTHOR 'S ORGANIZ ATION 12/02/2024 [facility] Goals (unrecognized section and content) Goals may be documented in a n alternate sectionGoals may be documented in an alternate sectionGoals may be documented in an alternate sectionGoals may be documented in an alternate sectionGoals may be documented in an alternate sectionGoals may be documented in an alternate sectionGoals may be documented in an alternate sectionGoals may be documented in an alternate sectionGoals may be documented in an alternate sectionGoals may be documented in an alternate sectionGoals may be documented in an alternate sectionGoals may be documented in an alternate sectionGoals may be documented in an alternate sectionGoals may be documented in an alternate section Care Teams (unrecognized sec tion and content) Team Status: Active Member Role Status Dates Dr. Anna Hightower MD Primary Care Provider Active Team Status: Inactive Member Role Status Dates Dr. Anna Hightower MD Primary Care P rovider, Attending Provider, Referring Provider Active Team Status: Inactive Member Role Status Dates Dr. Anna Hightower MD Primary Care Provider, Atten ding Provider Active Team Status: Inactive Member Role Status Dates Dr. Anna Hightower MD Primary Care Provider Active Dr. Valerie Alfredo MD Attending Provider, Referring Provider Active Team Status: Active Member Role Status Dates Dr. Anna Hightower MD Primary Care P rovider, Attending Provider, Referring Provider Active Team Status: Inactive Member Role Status Dates Dr. Anna Hightower MD Primary Care Provider, Refer ring Provider Active Dr. Odalis Klein DO Attending Provider Activ e Team Status: Inactive Member Role Status Dates Dr. Anna Hightower MD Primary Care Provider Active Dr. Odalis Klein DO Attending Provider, Refe rring Provider Active Team Status: Inactive Member Role Status Dates Dr. Anna Hightower MD Primary Care Provider Active Start: August 13, 2024 End: August 13, 2024 Dr. Anna Hightower MD Attending Provider Active Start: August 13, 2024 End: August 13, 2024 Dr. Anna Hightower MD Referring Provider Active Start: August 13, 2024 End: August 13, 2024 Team Status: Inactive Member Role Status Dates Dr. Anna Hightower MD Primary Care Provider Active Start: August 26, 2024 End: August 26, 2024 Dr. Anna Hightower MD Attending Provider Active Start: August 26, 2024 End: August 26, 2024 Dr. Anna Hightower MD Referring Provider Active Start: August 26, 2024 End: August 26, 2024 Team Status: Inactive Member Role Status Dates Dr. Anna Hightower MD Primary Care Provider Active Start: October 11, 2024 End: October 11, 2024 Dr. Anna Hightower MD Referring Provider Active Start: October 11, 2024 End: October 11, 2024 YVROSE Monahan Attending Provider Active S tart: October 11, 2024 End: October 11, 2024 FOR RECORDS PERTAINING TO PATIENTS WHO ARE OR HAVE BEEN ENROLLED IN A CHEMICAL DEPENDENCY/SUBSTANCEABUSE PROGRAM, SOME INFORMATION MAY BE OMITTED. This clinical summary was aggregated from multiple sources. Caution should be exercised in using it in the provision of clinical care. This summary normalizes information from multiple sources, and as a consequence, information in this document may materially change the coding, format and clinical context of patient data. In addition, data may be omitted in some cases. CLINICAL DECISIONS SHOULD BE BASED ON THE PRIMARY CLINICAL RECORDS. [facility]. provides no warranty or guarantee of the accuracy or completeness of information in this document.
[2024-12-02 07:08] VITALS: BP 129/77; PULSE 85; RESP 16; TEMP 36.1; O2SAT 97; BMI 32.8
[2024-12-02] MEDS: Lactated Ringers 1,000 ML 15 ML IV (07:18)
--- NOTE | 2024-12-02 07:21 | PCM.HP.STD ---
[facility] - General General Date of Admission: 12/02/24 Date of Service: 12/02/24 Chief Complaint: Godinez's esophagus [facility] Narrative BELEN NUNEZ, is a 74 F who presents today for surveillance of Godinez's esophagus. She had an EGD in 2014 due to increase in heartburn-doctor suspected BE. She then had a repeat EGD 6mos later but no testing was done for BE. She reports cough, sinus drainage and throat clearing. She also reports heartburn and reflux with garlic and tomato based sauces, she takes Tums for this 2 to 3 times a week. States I love my garlic. She states that she believed her cough was residual from her last COVID infection in April 2023. She reports daily complete BMs without straining. She still has her gallbladder but has her appendix removed. She denies difficulty chewing and swallowing, nausea, emesis, abdominal bloating, pain, constipation, diarrhea, hematochezia, and melena. [facility] Medical History Wears hearing aid High cholesterol Back pain History of hiatal hernia Gastric reflux Leg cramps History of pain when walking History of echocardiogram History of stress test Cardiology follow-up encounter Health care maintenance Atherosclerosis of coronary artery without angina pectoris CAD (coronary artery disease) Anemia Post-menopausal Vaginal odor PMR (polymyalgia rheumatica) Trigger finger of right hand Myalgia Arthritis Osteoarthritis Chronic pain Cough Callus of foot Generalized anxiety disorder Hyperlipidemia GERD (gastroesophageal reflux disease) Osteoporosis Hearing difficulty of both ears Generalized osteoarthrosis, unspecified site Macular degeneration Fibromyalgia Pure hypertriglyceridemia Essential hypertension Home Medications ?Medication ?Instructions ?Recorded ?Last Taken ?Type aspirin 81 mg tablet,delayed 81 mg PO DAILY 03/27/21 11/29/24 History release (Adult Low Dose Aspirin) calcium citrate 800 mg PO BID 03/27/21 12/01/24 History cholecalciferol (vitamin D3) 10 20 mcg PO BID 03/27/21 12/01/24 History mcg (400 unit) tablet cyanocobalamin (vitamin B-12) 1,500 mcg PO DAILY 03/27/21 12/01/24 History 1,000 mcg capsule duloxetine 60 mg capsule,delayed 60 mg PO BID #180 caps 07/26/24 12/01/24 Rx release alendronate 70 mg tablet (Fosamax) 70 mg PO QWEEK #20 tabs 08/13/24 11/27/24 Rx omeprazole 20 mg capsule,delayed 20 mg PO QDAY #90 caps 10/11/24 11/30/24 Rx release atorvastatin 20 mg tablet 20 mg PO QODAY 11/30/24 11/30/24 History ezetimibe 10 mg tablet 10 mg PO QODAY 11/30/24 11/30/24 History metoprolol succinate 50 mg 50 mg PO QHS 11/30/24 11/30/24 History tablet,extended release 24 hr vit C 250 mg-vit E 90 mg-zinc 40 1 tab PO BID 11/30/24 11/30/24 History mg-copper 1 [id number] capsule ([facility] AREDS-2) Allergy/AdvReac Type Severity Reaction Status Date / Time rosuvastatin Allergy Mild muscle ache Verified 12/02/24 07:04 simvastatin Allergy Mild muscle ache Verified 12/02/24 07:04 Family History Other Myocardial infarction Surgical History History of Uday fundoplication Hx of laminectomy Hx of hysterectomy History of surgery on left wrist H/O cataract removal with insertion of prosthetic lens H/O right wrist surgery S/P appendectomy Social History Smoking Status: Never smoker alcohol intake: current alcohol intake frequency: holidays/special occasions only substance use type: does not use caffeine: Yes what type of physical activity do you participate in: none seatbelt use: always do you feel safe at home: Yes additional social history: ROS Constitutional Constitutional: Denies fatigue, fever(s), poor appetite, weight gain or weight loss Gastrointestinal Gastrointestinal: Denies belching, bloating, change in bowel habits, change in stool character, chewing difficulty, coffee ground emesis, constipation, cramping, diarrhea, dyspepsia, dysphagia, early satiety, excessive flatus, fecal incontinence, heartburn, hematemesis, hematochezia, hemorrhoids, loose stools, melena, nausea, odynophagia, rectal bleeding, tenesmus, vomiting or weight changes Vital Signs Vital Signs Vital Signs: 12/02/24 07:08 12/02/24 07:08 Temperature 96.9 F L Temperature Source Temporal Pulse Rate 85 Respiratory Rate 16 Respiratory Pattern Normal Blood Pressure 129/77 H Blood Pressure Mean 94 Blood Pressure Source Monitor Blood Pressure Position Sitting Blood Pressure Location Left Arm Pulse Ox 97 Oxygen Delivery Method Room Air Weight Weight: 185 lb 6.54 oz Body Mass Index (BMI) 32.8 Physical Exam Const alert, oriented x3, no apparent distress and healthy appearing General Appearance: cooperative GI normal to inspection, nondistended, normoactive bowel sounds, soft to palpation, non-tender and non-distended Percussion: normal to percussion Rectal Exam: deferred Assessment & Plan Assessment/Plan (1) Heartburn: PLAN: Assessment and Plan Assessment and Plan (1) GERD (gastroesophageal reflux disease): Status: Chronic Qualifiers: Esophagitis presence: esophagitis presence not specified Qualified Code(s): K21.9 - Gastro-esophageal reflux disease without esophagitis (2) Heartburn: Status: Acute Medications: New omeprazole 20 mg PO QDAY 90 caps 3RF Plan BELEN NUNEZ, is a 74 F who presents to the office today for establishment with [facility] regarding concerns for BE follow-up. Her last colonoscopy was 4 years ago, she's never had any polypectomies or incidental findings. At 74y, without pertinent family history of colon cancer, she no longer needs screening colonoscopies. Reviewed alarm symptoms with her for diagnostic colonoscopy and she is agreeable to this plan. schedule EGD to examine esophagus, obtain tissue for pathology omeprazole 20mg PO daily, 30minutes before eating office FU 1wk after EGD
--- NOTE | 2024-12-02 07:28 | PRE.ANES_ITS ---
ASA Classification* ASA Classification ASA Classification: 2 Assessment & Plan Anesthesia* Anesthesia Assessment Anesthesia Assessment: Discussed sedation and/or anesthesia options, risks, benefits, and alternatives with patient/parents/legal guardian/POA. Questions invited. The patient/parents/legal guardian/POA seems to understand and agrees to proceed with anesthesia plan. Reviewed the physical assessment, medical history, allergy history and patient home medications list prior to surgery/procedure/anesthetic and documented any changes. Performed airway and anesthesia risk assessments. Anesthesia Type Anesthesia Type: MAC History Source History Obtained from:: Patient and Chart Anesthesia Focused Assessment* Temperature: 96.9 F Pulse Rate: 85 Blood Pressure: 129/77 Respiratory Rate: 16 Pulse Ox: 97 Oxygen Delivery Method: Room Air Airway Assessment Mouth opens: >3 cm Mallampati Score: II Teeth Condition: Intact and Caps/Crowns Neck Range of motion (ROM): Limited ROM Labs Anesthesia Preop lab: CBC WBC 8.2 K/mm3 (4.4-11.0) 01/07/24 09:01/07/24 RBC 4.49 M/mm3 (4.2-5.4) 01/07/24 09:01/07/24 Hgb 13.0 g/dL (12.0-15.0) 01/07/24 09:01/07/24 Hct 41.4 % (37-47) 01/07/24 09:22 01/07/24 Plt Count 265 K/mm3 (150-450) 01/07/24 09:22 01/07/24 CHEMISTRY Potassium 5.1 mmol/L (3.3-5.1) 08/13/24 11:52 08/13/24 Sodium 140 mmol/L (133-145) 08/13/24 11:52 08/13/24 BUN 14 mg/dL (4-19) 08/13/24 11:52 08/13/24 Creatinine 0.71 mg/dL (0.70-1.20) 08/13/24 11:52 08/13/24 Glucose 93 mg/dL (70-99) 08/13/24 11:52 08/13/24 COAG Pre-Assessment Diagnosis/Proposed Procedure Planned Operative Procedure(s): EGD Anesthesia History Anesthesia History - actionscript developer: Anesthesia History - actionscript developer Hx Hospitalization No 11/30/24 13:08 Any Problems With Anesthesia No 11/30/24 13:08 Cholinesterase deficiency No 11/30/24 13:08 You/Your Family Experience No 11/30/24 13:08 fever (hyperthermia) with Relationship Recent Exposure to Contagious No 12/02/24 07:08 Disease Does patient have nerve No 11/30/24 13:08 stimulator Patient instructed to have device shut off --Does patient have Pacemaker No 12/02/24 07:08 or ICD? When Was Last Pacemaker Check QUESTION #4 FULL TEXT: You/Your Family Experience fever (hyperthermia) with Anesthesia Last Oral Intake Last Oral intake: Last Oral Intake NPO since 21:00 12/02/24 07:08 Meds taken in AM with sips of Yes 12/02/24 07:08 water? Meds patient instructed to see chart 12/02/24 07:08 take am of surgery PONV PONV - actionscript developer: PONV - actionscript developer Female Yes 11/30/24 13:08 HX of Motion Sickness Yes 11/30/24 13:08 HX of N/V After Surgery No 11/30/24 13:08 Non-Smoker Yes 11/30/24 13:08 Duration of Surgery greater No 11/30/24 13:08 than 60 minutes Number of Risk Factors 3 11/30/24 13:08 PONV Score Moderate Risk 11/30/24 13:08 Height & Weight Height & Weight: Anesthesia: Height & Weight Height 5 ft 3 in 12/02/24 07:08 Weight: 84.1 kg 12/02/24 07:08 Body Mass Index (BMI) 32.8 12/02/24 07:08 Respiratory Assessment Respiratory Assessment - actionscript developer: Respiratory Tract Infection Hx - actionscript developer Hx Respiratory Tract Infection No 11/30/24 13:08 STOP Sleep Apnea STOP Sleep Apnea - actionscript developer: STOP Sleep Apnea - actionscript developer Hx Hypertension Yes: CONTROLLED ON MED 11/30/24 13:08 Hx Sleep Apnea No 11/30/24 13:08 CPAP BIPAP Do you snore loudly (louder No 11/30/24 13:08 than talking or can be heard Do you often feel tired/ No 11/30/24 13:08 fatigued/ sleepy during daytime? Has anyone observed you stop No 11/30/24 13:08 breathing during sleep? STOP Results Negative 11/30/24 13:08 QUESTION #5 FULL TEXT : Do you snore loudly (louder than talking or can be h eard through closed doors)? Tobacco Use History Tobacco Use History - actionscript developer: Tobacco Use History - actionscript developer Tobacco Use Smoking Status Never smoker 11/30/24 13:08 Hx Tobacco Use No 11/30/24 13:08 Years Smoking Packs Smoked per Day Smoking Cessation Date was within the last 15 years Hx Smoking Cessation Date Hx Smoking Cessation Counseling Hematologic Medial History Hematologic Hx - actionscript developer: Hematologic Medical Hx - net wpf developer Hx of Blood Transfusion No 11/30/24 13:08 Hx of Transfusion in last 3 No 11/30/24 13:08 Months Date of Last Transfusion (if within last 3 months) Ever experience any problems No 11/30/24 13:08 with transfusion(s)? Specify any problems Hx of Preganancy in last 3 No 11/30/24 13:08 Months Nurse Filling Out Transfusion VCHRISTIN 11/30/24 13:08 & Questions: Date: 11/30/24 11/30/24 13:08 Time: 13:09 11/30/24 13:08 Patient unable to answer at this time (ie. confused, unrespo /Reproduction History /Reproductive History - actionscript developer: /Reproductive Hx- actionscript developer Hx Now No 11/30/24 13:08 Gestational Age (in weeks): EDC: Hx Hx Para Hx Section SAB No 11/30/24 13:08 Active Medications Active Medications: Current Medications Generic Name Dose Route Start Last Admin Trade Name Freq PRN Reason Stop Dose Admin Lactated Ringer's 1,000 mls @ 15 mls/hr 12/02/24 07:00 12/02/24 07:18 IV 15 mls/hr .Q48H MELANIE Administration PFSH Medical History Wears hearing aid High cholesterol Back pain History of hiatal hernia Gastric reflux Leg cramps History of pain when walking History of echocardiogram History of stress test Cardiology follow-up encounter Health care maintenance Atherosclerosis of coronary artery without angina pectoris CAD (coronary artery disease) Anemia Post-menopausal Vaginal odor PMR (polymyalgia rheumatica) Trigger finger of right hand Myalgia Arthritis Osteoarthritis Chronic pain Cough Callus of foot Generalized anxiety disorder Hyperlipidemia GERD (gastroesophageal reflux disease) Osteoporosis Hearing difficulty of both ears Generalized osteoarthrosis, unspecified site Macular degeneration Fibromyalgia Pure hypertriglyceridemia Essential hypertension Home Medications ?Medication ?Instructions ?Recorded ?Last Taken ?Type aspirin 81 mg tablet,delayed 81 mg PO DAILY 03/27/21 0 11/29/24 History release (Adult Low Dose Aspirin) calcium citrate 800 mg PO BID 03/27/2112/01 History cholecalciferol (vitamin D3) 10 20 mcg PO BID 03/27/21 12/01/24 History mcg (400 unit) tablet cyanocobalamin (vitamin B-12) 1,500 mcg PO DAILY 03/2712/01/24 History 1,000 mcg capsule duloxetine 60 mg capsule,delayed 60 mg PO BID #180 cap s 07/26/24 12/01/24 Rx release alendronate 70 mg tablet (Fosamax) 70 mg PO QWEEK #20 tabs 08/13/24 11/27/24 Rx omeprazole 20 mg capsule,delayed 20 mg PO QDAY #90 cap s 10/11/24 11/30/24 Rx release atorvastatin 20 mg tablet 20 mg PO QODAY 11/30/2411/03 History ezetimibe 10 mg tablet 10 mg PO QODAY 11/30/2411/03 History metoprolol succinate 50 mg 50 mg PO QHS 11/30/2411/30 History tablet,extended release 24 hr vit C 250 mg-vit E 90 mg-zinc 40 1 tab PO BID 11/30/24 11/30/24 History mg-copper 1 [id number]-[id number] capsule ([facility] AREDS-2) Allergy/AdvReac Type Severity Reaction Status Date / Time rosuvastatin Allergy Mild muscle ache Verified 12/02/24 07:04 simvastatin Allergy Mild muscle ache Verified 12/02/24 07:04 Family History Other Myocardial infarction Surgical History History of Uday fundoplication Hx of laminectomy Hx of hysterectomy History of surgery on left wrist H/O cataract removal with insertion of prosthetic lens H/O right wrist surgery S/P appendectomy Social History Smoking Status: Never smoker alcohol intake: current alcohol intake frequency: holidays/special occasions only substance use type: does not use caffeine: Yes what type of physical activity do you participate in: none seatbelt use: always do you feel safe at home: Yes additional social history: Review of Systems (Anesthesia) ROS Narrative System reviewed and no additional complaints, except as documented.
[2024-12-02 07:30] VITALS: BP 129/77; PULSE 85; RESP 16; TEMP 36.1; O2SAT 97
--- NOTE | 2024-12-02 07:45 | EGD_PTH ---
PATIENT: BELEN NUNEZ LOC: EN U#:[id number] AGE/SX: 74/F ROOM: RE12/02/[address]: Dr. Mg Kennedy DO : 1950 BED: DIS: 12/02/2024 SPEC #: [id number] RECD: 12/02/24 09:16 STATUS: [place] RE[place] #: [id number] RISSA: 12/02/24 07:[address]: Mg Kennedy DEPT: SURGICAL PATHOLOGY RECD BY: Renato Nunez ENTERED: 12/02/24 09:57 SP TYPE: EGD BIOPSY WILLOW DR: Dr. Anna Hightower MD Tissues: A - Esophagus, NOS Procedures: Surgery Specimen Level IV HEADER OPERATION: EGD with biopsy PRE-OP DIAGNOSIS: GERD, heartburn, Godinez's esophagus TISSUE SUBMITTED: A- Distal esophagus biopsy MICROSCOPIC DIAGNOSIS A. Distal esophagus, biopsy: - Godinez mucosa with reactive changes. - Negative for dysplasia. MICROSCOPIC DESCRIPTION Slides are reviewed. GROSS DESCRIPTION A. Received in fixative is one container labeled with the patient's name and designated Distal esophagus biopsy. The specimen consists of multiple irregular fragments of light guerin soft tissue that in aggregate measure 0.9 x 0.7 x 0.1 cm. The specimen is totally submitted in one cassette. [place] 12/02/2024 CPT:29759 ADDENDUM ADDENDUM ADDENDUM ADDENDUM ADDENDUM ADDENDUM ADDENDUM ADDENDUM ADDENDUM ADDENDUM ADDENDUM ADDENDUM 01/20/2025 08:49 ADDENDUM 01/20/2025 08:49 ADDENDUM 01/20/2025 08:49 ADDENDUM 01/20/2025 08:49 ADDENDUM 01/20/2025 08:49 This addendum is added to incorporate an outside pathology consultation report. [facility] [employer]OSCI[employer]ES - TISSUE CYPHER - Block A Risk class: Low Risk score: 5.3 5-year probability of progression: 6% Please see complete above mentioned consultation report in EMR
[2024-12-02 08:23] VITALS: BP 103/63; BP 129/77; PULSE 75; RESP 16; TEMP 36.6; O2SAT 95
--- NOTE | 2024-12-02 08:23 | OP.EGD_ITS ---
Patient Name: Iva Heath Procedure Date: 12/02/2024 8:04 AM Date of : 1950 Age: 74 Procedure: Upper GI endoscopy Indications: Heartburn, Esophageal reflux, Follow-up of Godinez's esophagus Providers: Mg Kennedy DO Referring MD: Anna Hightower MD Medicines: Monitored Anesthesia Care Patient Profile: This is a 74 year old female. Refer to note in patient chart for documentation of history and physical. Patient has symptoms of chronic heartburn. Her most recent EGD for Godinez's biopsy. Complications: No immediate complications. Procedure: Pre-Anesthesia Assessment: - Prior to the procedure, a History and Physical was performed, and patient medications and allergies were reviewed. The patient is competent. The risks and benefits of the procedure and the sedation options and risks were discussed with the patient. All questions were answered and informed consent was obtained. Patient identification and proposed procedure were verified by the physician in the pre-procedure area. Mental Status Examination: alert and oriented. Airway Examination: normal oropharyngeal airway and neck mobility. Respiratory Examination: clear to auscultation. CV Examination: normal. Prophylactic Antibiotics: The patient does not require prophylactic antibiotics. Prior Anticoagulants: The patient has taken no anticoagulant or antiplatelet agents except for NSAID medication. ASA Grade Assessment: II - A patient with mild systemic disease. After reviewing the risks and benefits, the patient was deemed in satisfactory condition to undergo the procedure. The anesthesia plan was to use monitored anesthesia care (MAC). Immediately prior to administration of medications, the patient was re-assessed for adequacy to receive sedatives. The heart rate, respiratory rate, oxygen saturations, blood pressure, adequacy of pulmonary ventilation, and response to care were monitored throughout the procedure. The physical status of the patient was re-assessed after the procedure. After obtaining informed consent, the endoscope was passed under direct vision. Throughout the procedure, the patient's blood pressure, pulse, and oxygen saturations were monitored continuously. The Endoscope was introduced through the mouth, and advanced to the second part of duodenum. The upper GI endoscopy was accomplished without difficulty. The patient tolerated the procedure well. Scope In: 8:15:03 AM Scope Out: 8:20:06 AM Total Procedure Duration Time 0 hours 5 minutes 3 seconds Findings: There were esophageal mucosal changes secondary to established long-segment Godinez's disease present in the middle third of the esophagus and in the lower third of the esophagus. The maximum longitudinal extent of these mucosal changes was 8 cm in length. Mucosa was biopsied with a cold forceps for histology in a targeted manner at intervals of 1 cm in the middle third of the esophagus and in the lower third of the esophagus. One specimen bottle was sent to pathology. Verification of patient identification for the specimen was done. Estimated blood loss was minimal. A medium-sized hiatal hernia was present. No other significant abnormalities were identified in a careful examination of the stomach. No gross lesions were noted in the duodenal bulb. Impression: - Esophageal mucosal changes secondary to established long-segment Godinez's disease. Biopsied. - Medium-sized hiatal hernia. - No gross lesions in the duodenal bulb. Recommendation: - Discharge patient to home. - Resume previous diet. - Continue present medications. - Await pathology results. Procedure Code(s): --- Professional --- 74147, Esophagogastroduodenoscopy, flexible, transoral; with biopsy, single or multiple CPT copyright 2021 [employer]. All rights reserved. The codes documented in this report are preliminary and upon technician semiconductor development review may be revised to meet current compliance requirements. Mg Kennedy DO 12/02/2024 8:23:17 AM This report has been signed electronically. Number of Addenda: 0 Note Initiated On: 12/02/2024 8:04 AM
--- NOTE | 2024-12-02 08:23 | OP.PROVAT_ITS ---
12/02/2024 Anna Hightower MD [address] [place] [address] [place] [address] Re : Upper GI endoscopy procedure for Iva Heath Dear Dr. Hightower This procedure was performed on November. My impressions and recommendations are as follows: Impressions : - Esophageal mucosal changes secondary to established long-segment Godinez's disease. Biopsied. - Medium-sized hiatal hernia. - No gross lesions in the duodenal bulb. Recommendations : - Discharge patient to home. - Resume previous diet. - Continue present medications. - Await pathology results. My findings are described in the full procedure note, which is enclosed. If I can be of further assistance, please feel free to contact me at . Sincerely, Mg Kennedy, 12/02/2024 8:23:17 AM This report has been signed electronically.
[2024-12-02 08:25] VITALS: BP 129/77; BP 98/60; PULSE 91; RESP 16; O2SAT 92
--- NOTE | 2024-12-02 08:29 | PCM.POST.ANE ---
Anesthesia: Postop Eval I Current Vital Signs Temperature: 98 F Pulse Rate: 80 Blood Pressure: 103/63 Respiratory Rate: 16 Pulse Ox: 95 Oxygen Delivery Method: Room Air Assessment Airway patent: Yes Spontaneous unlabored respirations: Yes Mental status: Awake and Calm nausea: No Vomiting: No Anesthesia Complication: No Fluid Hydration Crystalloid volume administer (ml): 300 Total IV fluid infused: 300 Progress Note Anesthesia document: Postop Eval 1 completed: Yes
[2024-12-02 08:30] VITALS: BP 103/63; BP 110/70; BP 129/77; BP 95/67; PULSE 77; PULSE 80; RESP 16; TEMP 36.6; O2SAT 92; O2SAT 95
[2024-12-02 08:51] VITALS: BP 129/77
--- NOTE | 2024-12-02 12:39 | PCM.POSTANE2 ---
Anesthesia Postop Eval I Sum Postop Eval Completion status Anesthesia document: Postop Eval 1 completed: Yes Anesthesia Postop Eval I Summary Anesthesia Postop Eval I Summary: Anesthesia Postop Eval I: Assessment Summary Airway patent Yes 12/02/24 08:30 [email or web address] Spontaneous unlabored Yes 12/02/24 08:30 [email or web address] respirations Mental status Awake,Calm 12/02/24 08:30 [email or web address] nausea No 12/02/24 08:30 [email or web address] Vomiting No 12/02/24 08:30 [email or web address] Anesthesia Postop Eval I: Fluid Summary Crystalloid volume administer 300 12/02/24 08:30 [email or web address] (ml) Colloids volume administered ( ml) Blood Product volume administered (ml) Total IV fluid infused 300 12/02/24 08:30 [email or web address] Anesthesia Postop Eval I: Summary Notes Anesthesia Complication No 12/02/24 08:30 [email or web address] Anesthesia Complication Comment: Post-operative progress note Anesthesia: Postop Eval II Evaluation Mental status: Awake and Calm Pain Level: 1 nausea: No Vomiting: No
== END 2024-12-02 09:01 | disposition home or self-care (01) ==
LOC: EN 06:44 → AC 06:45
PROVIDERS: PCP Internal Medicine; Referring Provider Internal Medicine; Visit Provider Internal Medicine Gastroenterology
PROC: 0DJ08ZZ Inspection of Upper Intestinal Tract, Via Natural or Artificial Opening Endoscopic (ICD-10-PCS; CPT 43235; principal; 2024-12-02 07:40)
DX: K22.70 Barrett's esophagus without dysplasia (principal); K21.9 Gastro-esophageal reflux disease without esophagitis; K44.9 Diaphragmatic hernia without obstruction or gangrene; F41.1 Generalized anxiety disorder; E78.2 Mixed hyperlipidemia; I10 Essential (primary) hypertension; I25.10 Atherosclerotic heart disease of native coronary artery without angina pectoris; M35.3 Polymyalgia rheumatica; M79.7 Fibromyalgia; M81.0 Age-related osteoporosis without current pathological fracture; G89.29 Other chronic pain; Z90.49 Acquired absence of other specified parts of digestive tract; Z79.82 Long term (current) use of aspirin; Z79.899 Other long term (current) drug therapy
CPT/HCPCS: 43239; 88305; J2405